=== PATIENT | female | born 1975 | race Caucasian/White ===

== ENCOUNTER 2019-07-14 10:39 | Outpatient (CLI) | payer MEDICARE, MEDICAID, SELFPAY ==
--- NOTE | 2019-07-14 10:49 | XR_ITS ---
WS: [id number] HIP WITH PELVIS RIGHT TECHNIQUE: 3 views of the right hip with pelvis CLINICAL INFORMATION: PAIN AFTER FALL COMPARISON: None. FINDINGS: Mild degenerative arthritis right hip with joint space narrowing. No acute fractures. Normal pubic ra mi. Pelvic phleboliths. XR/XR hip RT 2-3V wo/w pel* [id number] IMPRESSION: No acute fractures
== END 2019-07-14 10:40 | disposition home or self-care (01) ==
LOC: RADWPI 10:47
PROVIDERS: Family Provider Family Medicine; PCP Family Medicine; Visit Provider Family Medicine
DX: M16.11 Unilateral primary osteoarthritis, right hip (principal); M25.551 Pain in right hip
CPT/HCPCS: 73502

== ENCOUNTER 2019-12-19 19:21 | Emergency (ER) | payer MEDICARE, MEDICAID, SELFPAY ==
[2019-12-19 19:34] VITALS: BP 144/90; PULSE 86; RESP 18; TEMP 37.2; O2SAT 98; BMI 34.3
--- NOTE | 2019-12-19 20:40 | CTR_ITS ---
PROCEDURE INFORMATION: Exam: CT Abdomen And Pelvis With Contrast Exam date and time: 12/19/2019 9:20 PM Age: 44 years old Clinical indication: Abdominal pain; Localized; Left lower quadrant (llq); Prior surgery; Surgery date: 6+ months; Surgery type: Gb, tubal; Additional info: Llq pain TECHNIQUE: Imaging protocol: Computed tomography of the abdomen and pelvis with intravenous contrast. Radiation optimization: All CT scans at this facility use at least one of these dose optimization techniques: automated exposure control; mA and/or kV adjustment per patient size (includes targeted exams where dose is matched to clinical indication); or iterative reconstruction. Contrast material: OMNI 300; Contrast volume: 95 ml; Contrast route: INTRAVENOUS (IV); COMPARISON: CT abdomen pelvis w con* [id number] 04/25/2019 8:43 AM RADIATION DOSE METRICS: Total DLP (mGy-cm): 1529.18 FINDINGS: Liver: There is a diffuse decrease in hepatic parenchymal density, consistent with fatty infiltration. There is an unchanged lipoma within the right lobe of the liver image 27 measuring 1.3 cm in size. Gallbladder and bile ducts: There has been a cholecystectomy. There is no common bile duct dilation. Pancreas: Normal. No ductal dilation. Spleen: There is an unchanged peripherally calcified splenic cyst. Adrenals: Normal. No mass. Kidneys and ureters: There is no evidence of hydronephrosis. There is no evidence of renal calcifications. Stomach and bowel: There is no evidence of intestinal perforation or obstruction. There is no evidence of colitis/diverticulitis. Appendix: A normal appendix is identified. Intraperitoneal space: Unremarkable. No free air. No significant fluid collection. Vasculature: Unremarkable.No abdominal aortic aneurysm. Lymph nodes: Unremarkable.No enlarged lymph nodes. Bladder: Unremarkable as visualized. Reproductive: Uterus and ovaries are unremarkable. Bones/joints: Unremarkable. No acute fracture. Soft tissues: There is a fat-containing umbilical hernia. CT/CT abdomen pelvis w con* [id number] IMPRESSION: Unchanged exam. No acute abnormality. Unremarkable appendix. No bowel thickening or inflammatory changes. No obstructing calculi. Radiation Dose CTDIVOL = (mGy): DLP = 1529.18 (mGy-cm)
[2019-12-19 21:19] LABS: Basophils # 0.1 10^3/uL (0.0-0.1); Basophils % 0.7 %; Eosinophils # 0.1 10^3/uL (0.0-0.8); Eosinophils % 1.6 %; Hematocrit 43.7 % (37.0-47.0); Hemoglobin 14.4 g/dL (11.5-15.3); Lymphocytes # 3.6 10^3/uL (0.8-4.8); Lymphocytes % 42.9 %; Mean Corpuscular Hemoglobin 30.1 pg (28.0-34.0); Mean Corpuscular Volume 91.4 fL (81-99); Mean Platelet Volume 10.3 fL (7.4-10.4); Monocytes # 0.5 10^3/uL (0.2-0.9); Monocytes % 5.7 %; Neutrophils # 4.1 10^3/uL (1.8-7.7); Nucleated Red Blood Cells % 0 %; Platelet Count 308 10^3/cmm (130-400); Red Blood Count 4.78 10^6/uL (4.1-5.3); Red Cell Distribution Width 14.2 % (12.1-15.1); White Blood Count 8.3 10^3/uL (4.0-10.0)
[2019-12-19] MEDS: sodium chloride 0.9% 1,000 ML 999 ML IV (21:22)
[2019-12-19] MEDS: lidocaine 2% viscous 15 ML, aluminum-mag hydrox-simethicon 30 ML, sucralfate oral liq 1 GM PO (21:23)
[2019-12-19] MEDS: iohexol 300 mg/mL 100 mL Btl IV (21:30)
[2019-12-19 21:38] LABS: Alanine Aminotransferase 18 U/L (0-33); Albumin Level 4.6 g/dL (3.5-5.2); Alkaline Phosphatase 55 IU/L (35-105); Anion Gap 18.8 (5-19); Aspartate Amino Transferase 21 U/L (0-32); Blood Urea Nitrogen 9 mg/dL (6-20); Calcium 9.6 mg/dL (8.5-10.5); Carbon Dioxide 22 mmol/L (22-29); Chloride 101 mmol/L (98-107); Globulin 3.2 g/dL (1.3-4.6); Glucose 103 mg/dL (65-115); Lipase 35 U/L (13-60); Osmolality Calculated 282 mOsm/kg (285-295); Potassium 3.8 mmol/L (3.5-5.1); Sodium 138 mmol/L (136-145); Total Bilirubin 0.4 mg/dL (0.15-1.2); Total Protein 7.8 g/dL (6.6-8.7)
--- NOTE | 2019-12-19 21:46 | W.ED.ABDPA2 ---
HPI - Abdominal Pain General: Chief Complaint: Abdominal Pain Stated Complaint: lower l pain, n/v Time Seen by Provider: 12/19/19 20:36 History of Present Illness: HPI narrative: Patient with complaint about abdominal discomfort left lower quadrant have diverticulitis has history of gastroparesis and said that she feels like it is acting up again. Onset (ago): day(s) Pain Consistency: intermittent Location: LLQ Severity: mild Associated Symptoms: Reports diarrhea and loose stools; Denies chills, fever(s), nausea and vomiting Review of Systems Const: Denies: fever(s), chills or body aches Eyes: Denies: change in vision or blurry vision ENMT: Denies: throat pain or nasal congestion Card: Denies: chest pain or dyspnea on exertion Resp: Denies: dyspnea, productive cough or non-productive cough GI: Reports: abdominal pain and diarrhea; Denies: nausea or vomiting Musc: Denies: extremity pain Skin/Breast: Denies: rash Neuro: Denies: headache(s) Psych: Denies: anxiety or depression Zeeshan/Lymph: Denies: easy bruising Physical Exam Const: COMMON NORMALS: no acute distress, average body habitus and patient oriented x3 HENMT: COMMON NORMALS: normocephalic HEAD & SCALP: normal to inspection and normocephalic FACE & SINUS: normal facial exam Eye: COMMON NORMALS: conjunctivae normal GENERAL EYE: appearance normal, both eyes and all related structures CONJUNCTIVA: Yes conjunctivae normal Neck/C-Spine: COMMON NORMALS: no JVD Chest: COMMONS NORMALS: normal inspection of the chest Resp: COMMON NORMALS: normal respiratory effort and clear to auscultation bilaterally AUSCULTATION: clear to auscultation bilaterally Cardio: COMMON NORMALS: no JVD, regular rate and regular rhythm RATE: regular rate RHYTHM: regular rhythm GI: COMMON NORMALS: Normal to inspection, nondistended, normoactive bowel sounds present PALPATION: Yes Tenderness to palpation present (GI) Details: LLQ Extremity: COMMON NORMALS: normal to inspection and full ROM Neuro: COMMON NORMALS: patient oriented x3 Course Vital Signs: Vital signs: Vital Signs Temperature 99.0 F 12/19/19 19:34 Pulse Rate 72 12/19/19 22:24 Respiratory Rate 18 12/19/19 22:24 Blood Pressure 133/78 12/19/19 22:24 Pulse Oximetry 98 12/19/19 22:24 MDM - Abdominal Pain MDM Narrative: Medical decision making narrative: Discussed need to follow-up with specialist and also curtail marijuana use Lab Data: Labs: Lab Results 12/19/19 12/19/19 Range/Units 21:01 21:01 WBC 8.3 (4.0-10.0) 10^3/ uL RBC 4.78 (4.1-5.3) 10^6/u L Hgb 14.4 (11.5-15.3) g/dL Hct 43.7 (37.0-47.0) % MCV 91.4 (81-99) fL MCH 30.1 (28.0-34.0) pg MCHC 33.0 (30.0-36.0) g/dL RDW 14.2 (12.1-15.1) % Plt Count 308 (130-400) 10^3/c mm MPV 10.3 (7.4-10.4) fL Neut % (Auto) 49.0 % Lymph % (Auto) 42.9 % [place] % (Auto) 5.7 % Eos % (Auto) 1.6 % Baso % (Auto) 0.7 % Neut # (Auto) 4.1 (1.8-7.7) 10^3/u L Lymph # (Auto) 3.6 (0.8-4.8) 10^3/u L [place] # (Auto) 0.5 (0.2-0.9) 10^3/u L Eos # (Auto) 0.1 (0.0-0.8) 10^3/u L Baso # (Auto) 0.1 (0.0-0.1) 10^3/u L Nucleated RBC % (a uto) 0 % Nucleated RBCs # 0.0 /100WBC Sodium 138 (136-145) mmol/L Potassium 3.8 (3.5-5.1) mmol/L Chloride 101 (98-107) mmol/L Carbon Dioxide 22 (22-29) mmol/L Anion Gap 18.8 (5-19) BUN 9 (6-20) mg/dL Creatinine 0.5 (0.5-0.9) mg/dL GFR Calculation 134.0 H (90-130) mL/min Glucose 103 (65-115) mg/dL Calculated Osmolal ity 282 L (285-295) mOsm/k g Calcium 9.6 (8.5-10.5) mg/dL Total Bilirubin 0.4 (0.15-1.2) mg/dL AST 21 (0-32) U/L ALT 18 (0-33) U/L Alkaline Phosphata se 55 (35-105) IU/L Total Protein 7.8 (6.6-8.7) g/dL Albumin 4.6 (3.5-5.2) g/dL Globulin 3.2 (1.3-4.6) g/dL Lipase 35 (13-60) U/L Discharge Plan Discharge Patient Disposition: Home, Self-Care Clinical Impression: Diabetic gastroparesis, Cannabis abuse Condition: Stable Prescriptions: New Reglan 5 mg tablet 5 mg PO DAILY Qty: 10 RF: 0 Discharge Orders: Discharge Order (Routine); Ordered 12/19/19 Ordered By: Frederic Nevarez Referrals: Candida Kennedy MD [Primary Care Provider] - Discharge Diet: Advance as tolerated Discharge Activity: Increase activity as tolerated Patient Instructions: Diabetic gastroparesis (GEN) Activity Restrictions/Additional Instructions: Follow-up with medical provider as directed. Take medications as prescribed. Return to the ER or your medical provider if condition worsens. Please read and understand discharge instructions. If any questions ask please. 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
[2019-12-19 22:24] VITALS: BP 133/78; PULSE 72; RESP 18; O2SAT 98
[2019-12-19 22:30] LABS: Add Urine Microscopic? NO
[2019-12-19 23:13] LABS: Protein Urine Neg (Negative); Specific Gravity, Urine 1.015 (1.005-1.030); Urine Appearance Clear (CLEAR); Urine Color Yellow (Yellow); pH Urine 6 (5-7)
[2019-12-19 23:14] LABS: Bilirubin Urine Neg (NEGATIVE); Blood Urine Neg (Negative); Glucose Urine UA 4+ (Normal); Ketones Urine Negative (Negative); Leukocyte Esterase Urine Negative (Negative); Nitrate Urine Negative (Negative); Urobilinogen Urine Norm (Negative)
[2019-12-20 06:12] LABS: Glucose Point of Care 157 mg/dL (70-110)
== END 2019-12-19 22:25 | disposition home or self-care (01) ==
PROVIDERS: Emergency Provider Nurse Practitioner Family; PCP Family Medicine
DX: E11.43 Type 2 diabetes mellitus with diabetic autonomic (poly)neuropathy (principal); K31.84 Gastroparesis; F12.10 Cannabis abuse, uncomplicated
CPT/HCPCS: 12345; 36416; 74177; 80053; 81003; 82962; 83690; 85025; 96360; 99282; 99283; J7030; Q9967

== ENCOUNTER 2019-12-29 21:15 | Emergency (ER) | payer MEDICARE, MEDICAID, SELFPAY ==
[2019-12-29 21:25] VITALS: BP 137/83; PULSE 77; RESP 18; TEMP 36.6; O2SAT 96; BMI 32.5
[2019-12-29 22:08] LABS: Basophils % 0.6 %; Eosinophils # 0.3 10^3/uL (0.0-0.8); Eosinophils % 4.2 %; Hematocrit 42.1 % (37.0-47.0); Hemoglobin 14.1 g/dL (11.5-15.3); Lymphocytes # 2.8 10^3/uL (0.8-4.8); Lymphocytes % 42.9 %; Mean Corpuscular HGB Conc 33.5 g/dL (30.0-36.0); Mean Corpuscular Hemoglobin 31.1 pg (28.0-34.0); Mean Corpuscular Volume 92.7 fL (81-99); Mean Platelet Volume 10.6 fL (7.4-10.4); Monocytes # 0.5 10^3/uL (0.2-0.9); Monocytes % 7.8 %; Neutrophils # 2.85 10^3/uL (1.8-7.7); Neutrophils % 44.3 %; Nucleated Red Blood Cells % 0 %; Platelet Count 284 10^3/cmm (130-400); Red Blood Count 4.54 10^6/uL (4.1-5.3); Red Cell Distribution Width 14.2 % (12.1-15.1); White Blood Count 6.4 10^3/uL (4.0-10.0)
[2019-12-29 22:26] LABS: HCG, Serum Qual Negative (Negative)
[2019-12-29 22:27] LABS: Alanine Aminotransferase 35 U/L (0-33); Albumin Level 4.8 g/dL (3.5-5.2); Alkaline Phosphatase 61 IU/L (35-105); Anion Gap 17.3 (5-19); Aspartate Amino Transferase 33 U/L (0-32); Blood Urea Nitrogen 8 mg/dL (6-20); Calcium 9.7 mg/dL (8.5-10.5); Carbon Dioxide 23 mmol/L (22-29); Chloride 102 mmol/L (98-107); Creatinine Clr Calc Pharmacy 152.5313; Globulin 2.4 g/dL (1.3-4.6); Glucose 144 mg/dL (65-115); Lipase 44 U/L (13-60); Osmolality Calculated 286 mOsm/kg (285-295); Potassium 3.3 mmol/L (3.5-5.1); Sodium 139 mmol/L (136-145); Total Bilirubin 0.4 mg/dL (0.15-1.2); Total Protein 7.2 g/dL (6.6-8.7)
== END 2019-12-30 01:51 ==
LOC: ER 21:42
PROVIDERS: Physician Assistant; Emergency Provider Emergency Medicine; PCP Family Medicine
DX: Z53.21 Procedure and treatment not carried out due to patient leaving prior to being seen by health care provider (principal)
CPT/HCPCS: 36415; 80053; 83690; 84703; 85025; 99281

== ENCOUNTER 2020-01-22 23:11 | Emergency (ER) | payer MEDICARE, MEDICAID, SELFPAY ==
[2020-01-22 23:18] VITALS: BP 119/66; PULSE 115; RESP 18; TEMP 36.7; O2SAT 96; BMI 34.3
== END 2020-01-23 00:50 | disposition left against medical advice (07) ==
PROVIDERS: Emergency Provider Emergency Medicine; PCP Family Medicine
DX: Z53.21 Procedure and treatment not carried out due to patient leaving prior to being seen by health care provider (principal)
CPT/HCPCS: 99281

== ENCOUNTER 2020-01-23 09:09 | Emergency (ER) | payer MEDICARE, MEDICAID, SELFPAY ==
[2020-01-23 09:13] VITALS: BMI 34.3
--- NOTE | 2020-01-23 09:15 | ED_ITS ---
HPI - Wound/Laceration General: Chief Complaint: Wound/Laceration Stated Complaint: finger lac Time Seen by Provider: 01/23/20 09:11 History of Present Illness: HPI narrative: Patient is a 44-year-old female who comes to the ED with a laceration to left index finger. Patient says last night around 9 PM she cut herself with a knife by accident. She was able to control the bleeding with gauze and wrapped tape around finger. She comes to the ED today to get her finger laceration evaluated. Patient says she has not had a tetanus in a long time. Associated symptoms: Denies chills, fever(s), nausea or vomiting Review of Systems Const: Denies: fever(s), chills or fatigue Eyes: Denies: change in vision or eye discomfort ENMT: Denies: throat pain, odynophagia, nasal discharge or nasal congestion Card: Denies: chest pain, palpitations, edema, swelling of feet/ankles, dyspnea on exertion or orthopnea Resp: Denies: dyspnea, productive cough or non-productive cough GI: Denies: abdominal pain, nausea, vomiting, diarrhea, constipation or hematochezia : Denies: flank pain, dysuria or hematuria Musc: Denies: neck pain, back pain or extremity swelling Skin/Breast: Reports: new lesions (Laceration to left index finger.); Denies: rash Neuro: Denies: headache(s), numbness in extremities or weakness in extremities Physical Exam Const: COMMON NORMALS: no acute distress, patient oriented x3 and alert GENERAL APPEARANCE: cooperative and comfortable HENMT: COMMON NORMALS: normocephalic HEAD & SCALP: normocephalic MOUTH: Normal oral and palatal mucosa present THROAT: posterior oropharynx normal and uvula midline Neck/C-Spine: COMMON NORMALS: supple GENERAL: Yes normal visual inspection Resp: COMMON NORMALS: normal respiratory effort, No retractions, No use of accessory muscles and clear to auscultation bilaterally AUSCULTATION: clear to auscultation bilaterally Cardio: COMMON NORMALS: regular rate, regular rhythm, S1 normal heart sound present, S2 normal heart sound present, No gallops present (Cardio), No clicks present (Cardio), No murmurs present (Cardio) and Peripheral pulses 2+ throughout RATE: regular rate RHYTHM: regular rhythm HEART SOUNDS: S1 normal heart sound present and S2 normal heart sound present PERIPHERAL PULSES: Peripheral pulses 2+ throughout GI: COMMON NORMALS: Normal to inspection, nondistended, normoactive bowel sounds present, Soft to palpation, non-tender and no masses PALPATION: Yes Soft to palpation : COMMON NORMALS: Yes no CVA tenderness BLADDER/KIDNEY EXAM: Yes no CVA tenderness Back/Pelvis: COMMON NORMALS: no CVA tenderness Extremity: NARRATIVE EXTREMITY EXAM: Left index finger contains a 1 cm laceration near the lateral side near DIP joint. Patient had full sensation to finger and full range of motion. GENERAL: Yes normal exam except as noted Neuro: COMMON NORMALS: patient oriented x3 and moves all extremities SENSORIUM/ORIENTATION: Yes alert Skin: GENERAL SKIN EXAM: dry skin TRAUMA: laceration (1 cm linear laceration-wound margins are ready well closed up and no need for sutures at this time.) linear, actively bleeding (mild active bleeding after removing gauze and bandage.), superficial, motor nerve function intact and sensation intact; no pulsatile bleeding, no foreign bodies present and not contaminated Procedures Laceration Laceration 1: Site: hand (index finger) Side (If applicable): left Description: linear and clean Depth: simple, single layer Pre-repair: irrigated extensively (With normal saline) Size (cm): other (Dermabond) Technique: other (dermabond) Course Vital Signs: Vital signs: Vital Signs Temperature 97.9 F 01/23/20 10:42 Pulse Rate 91 01/23/20 10:42 Respiratory Rate 16 01/23/20 10:42 Blood Pressure 119/75 01/23/20 10:42 Pulse Oximetry 97 01/23/20 10:42 MDM - Wound/Laceration MDM Narrative: Medical decision making narrative: Patient is a 44-year-old female who comes to the ED with a laceration on left index finger. Laceration was superficial and Dermabond was used to help close and see lip laceration. X- ray of left hand was unremarkable and showed no acute findings or foreign bodies seen. Patient was given a tetanus dose while here in the ED. She was discharged and given a prescription for cephalexin for prophylactic treatment. Patient was told to follow-up with PCP in 7 to 10 days for reevaluation. Keep laceration site dry for the next 48 hours then clean and re-bandage daily. Watch for signs of infection. Patient understood and agreed with plan. Return to ED precautions given. Imaging Data^: Xray Ortho: Attestation: I personally reviewed and interpreted this imaging study as follows: My impression: Left hand x-ray?no acute fractures seen or foreign bodies present. Pending final radiology report. Discharge Plan Discharge Patient Disposition: Home Clinical Impression: Laceration Condition: Stable Prescriptions: New cephalexin 500 mg capsule 500 mg PO TID 5 Days Qty: 15 RF: 0 No Action Reglan 5 mg tablet 5 mg PO DAILY Qty: 10 RF: 0 Discharge Orders: Discharge Order (Routine); Ordered 01/23/20 Ordered By: Nathan Marrero Referrals: Candida Kennedy MD [Primary Care Provider] - Discharge Diet: Regular Discharge Activity: Increase activity as tolerated Patient Instructions: Finger Laceration (ED) Activity Restrictions/Additional Instructions: Take full course of antibiotics as prescribed. Keep laceration site clean and dry for the next 48 hours. Then after that you can clean and re-bandage daily. Watch for signs of infection such as redness, warmth, increased tenderness and puslike drainage. If you see the signs of infection return to the ED, urgent care or PCP for reevaluation. call your PCP to schedule a follow-up appointment for reevaluation in the next 7 to 10 days. Continue taking all home meds. Follow discharge plans as discussed. You can return to the ED if symptoms worsen. 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
[2020-01-23 09:18] VITALS: BP 128/81; PULSE 98; RESP 18; TEMP 36.8; O2SAT 98
--- NOTE | 2020-01-23 09:32 | XRR_ITS ---
PROCEDURE INFORMATION: Exam: XR Left Hand Exam date and time: 01/23/2020 9:33 AM Age: 44 years old Clinical indication: Injury or trauma; Injury history: Laceration to index finger; Initial encounter; Left; Injury date: Yesterday TECHNIQUE: Imaging protocol: XR Left hand. Views: 3 or more views. COMPARISON: No relevant prior studies available. FINDINGS: Bones/joints: No acute bony injury or malalignment. Degenerative change, disproportionately involving the 1st carpometacarpal joint. Sclerosis in the 3rd distal phalanx. Soft tissues: Mild soft tissue swelling without radiopaque foreign body. 2 mm soft tissue calcification adjacent to the ulnar styloid. XR/XR hand LT min 3V* [id number] IMPRESSION: No acute bony injury or malalignment.
[2020-01-23] MEDS: tetanus-dipt-pertussis 0.5 mL SDV IM (09:37)
[2020-01-23] MEDS: cephALEXin 500 mg Capsule PO (09:44)
[2020-01-23] MEDS: acetaminophen 500 mg Tablet 1000 MG PO (09:44)
[2020-01-23 10:42] VITALS: BP 119/75; PULSE 91; RESP 16; TEMP 36.6; O2SAT 97
== END 2020-01-23 10:44 | disposition home or self-care (01) ==
PROVIDERS: Emergency Provider Physician Assistant; PCP Family Medicine
DX: S61.211A Laceration without foreign body of left index finger without damage to nail, initial encounter (principal); W26.0XXA Contact with knife, initial encounter; Z23 Encounter for immunization
CPT/HCPCS: 12001; 12345; 73130; 90471; 90715; 99281; 99283

== ENCOUNTER 2020-01-30 19:34 | Emergency (ER) | payer MEDICARE, MEDICAID, SELFPAY ==
[2020-01-30 19:43] VITALS: BP 139/90; PULSE 84; RESP 18; TEMP 36.6; O2SAT 97
--- NOTE | 2020-01-30 19:54 | W.ED.EAR ---
HPI - Ear Problem General: Chief complaint: Ear Stated complaint: left ear pain/ drainage Time Seen by Provider: 01/30/20 19:51 Source: patient Mode of arrival: ambulatory Limitations: no limitations History of Present Illness: HPI Narrative: Patient comes in today with complaints of left ear pain and discomfort. Patient has been using Q-tips in her ear. Patient appears well. Patient appears in no acute distress. Associated symptoms: Reports ear or mastoid pain Review of Systems General: Reports: 10 or more systems reviewed and unremarkable except in HPI and below ENMT: Reports: ear or mastoid pain Physical Exam Const: COMMON NORMALS: no acute distress and patient oriented x3 GENERAL APPEARANCE: cooperative HENMT: COMMON NORMALS: normocephalic, TM's normal bilaterally and Normal external nose present HEAD & SCALP: normal to inspection and normocephalic NOSE: Normal external nose present EXTERNAL AUDITORY CANAL: Abnormal EAC present (Abrasion with redness is noted to the left ear canal.) TYMPANIC MEMBRANE: TM's normal bilaterally MOUTH: Normal oral and palatal mucosa present THROAT: posterior oropharynx normal Eye: GENERAL EYE: appearance normal, both eyes and all related structures Neck/C-Spine: COMMON NORMALS: full ROM Lymph: LYMPHATIC: no lymphadenopathy noted Chest: COMMONS NORMALS: normal inspection of the chest Resp: COMMON NORMALS: normal respiratory effort EFFORT & INSPECTION: Yes able to speak in complete sentences Cardio: COMMON NORMALS: regular rate and regular rhythm RATE: regular rate RHYTHM: regular rhythm GI: COMMON NORMALS: non-tender Back/Pelvis: COMMON NORMALS: thoracic and lumbar spine normal to inspection Extremity: COMMON NORMALS: normal to inspection Neuro: COMMON NORMALS: patient oriented x3 and moves all extremities Psych: COMMON NORMALS: mental status grossly normal and cooperative Skin: COMMON NORMALS: no rashes or lesions noted GENERAL SKIN EXAM: no rashes or lesions noted Course Vital Signs: Vital signs: Vital Signs Temperature 97.9 F 01/30/20 19:43 Pulse Rate 84 01/30/20 19:43 Respiratory Rate 18 01/30/20 19:43 Blood Pressure 139/90 01/30/20 19:43 Pulse Oximetry 97 01/30/20 19:43 MDM - Ear MDM Narrative: Medical decision making narrative: Patient comes in today with complaints of left ear discomfort. On exam we note an abrasion and some redness to the left ear canal. Remainder the exam was unremarkable. Vital signs were normal. Differential diagnosis includes but not limited to otitis externa, abrasion, malingering. Reviewed exam with patient recommended treatment with Cortisporin eardrops for discomfort. Patient reported understanding of care plan and need for follow-up. Discharge Plan Discharge Patient Disposition: Home Clinical Impression: Otitis externa Qualifiers: Otitis externa type: unspecified type Chronicity: acute Laterality: left Qualified Code(s): H60.502 - Unspecified acute noninfective otitis externa, left ear Condition: Stable Prescriptions: No Action Reglan 5 mg tablet 5 mg PO DAILY Qty: 10 RF: 0 Discharge Orders: Discharge Order (Routine); Ordered 01/30/20 Ordered By: Darius Patten Referrals: Candida Kennedy MD [Primary Care Provider] - Discharge Diet: Usual diet Discharge Activity: Increase activity as tolerated Patient Instructions: Otitis Externa (ED) Activity Restrictions/Additional Instructions: Acetaminophen as needed for pain. Use ear drops, 4 drops to affected ear 4 times a day for 7 days. Follow-up with primary care in one week. 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
== END 2020-01-30 21:00 | disposition home or self-care (01) ==
PROVIDERS: Emergency Provider Nurse Practitioner Family; PCP Family Medicine
DX: H60.502 Unspecified acute noninfective otitis externa, left ear (principal)
CPT/HCPCS: 12345; 99281; 99283

== ENCOUNTER 2020-02-09 10:46 | Outpatient (CLI) | payer MEDICARE, MEDICAID, SELFPAY ==
--- NOTE | 2020-02-09 | XR_ITS ---
WS: [id number] LEFT HAND: 3 VIEW(S) TECHNIQUE: PA, oblique and lateral. HISTORY: HAND PAIN, LEFT COMPARISON: 01/23/2020 No acute fracture or dislocation. No soft tissue or bone abnormality. No erosions. No periostitis. XR/XR hand LT min 3V* [id number] IMPRESSION: No arthropathy appreciated.
--- NOTE | 2020-02-09 | XR_ITS ---
WS: [id number] RIGHT HAND: 3 VIEW(S) TECHNIQUE: PA, oblique and lateral. HISTORY: NUMBNESS COMPARISON: None available. No acute fracture or dislocation. No soft tissue or bone abnormality. No erosions or soft tissue abnormality. XR/XR hand RT min 3V* [id number] IMPRESSION: Normal RIGHT hand.
== END 2020-02-09 10:47 | disposition home or self-care (01) ==
LOC: RADWPI 10:49
PROVIDERS: PCP Nurse Practitioner Family; Visit Provider Nurse Practitioner Family
DX: M79.642 Pain in left hand (principal); R20.2 Paresthesia of skin
CPT/HCPCS: 73130

== ENCOUNTER → 2020-03-22 11:08 | Outpatient (BNVA) | payer MEDICARE, MEDICAID, SELFPAY | PROVIDERS: PCP Nurse Practitioner Family; Visit Provider Specialist | DX: G56.03 Carpal tunnel syndrome, bilateral upper limbs (principal); R20.0 Anesthesia of skin | CPT/HCPCS: 95910 ==

== ENCOUNTER 2020-09-10 05:02 | Emergency (ER) | payer MEDICARE, MEDICAID, SELFPAY ==
[2020-09-10 05:07] VITALS: BP 98/76; PULSE 78; RESP 16; TEMP 36.8; O2SAT 97; BMI 32.1
--- NOTE | 2020-09-10 05:22 | CTR_ITS ---
PROCEDURE INFORMATION: Exam: CT Abdomen And Pelvis With Contrast Exam date and time: 09/10/2020 5:26 AM Age: 45 years old Clinical indication: Nausea and vomiting; Abdominal pain; Generalized; Prior surgery; Surgery type: Gb; Patient HX: Abd pain with n/v/d x 1 week. History of gastroparesis. TECHNIQUE: Imaging protocol: Computed tomography of the abdomen and pelvis with contrast. Radiation optimization: All CT scans at this facility use at least one of these dose optimization techniques: automated exposure control; mA and/or kV adjustment per patient size (includes targeted exams where dose is matched to clinical indication); or iterative reconstruction. Contrast material: OMNI 300; Contrast volume: 95 ml; Contrast route: INTRAVENOUS (IV); COMPARISON: CT abdomen pelvis w con* [id number] 12/19/2019 9:20 PM RADIATION DOSE METRICS: Total DLP (mGy-cm): 1579.59 FINDINGS: Lungs: The lung bases are clear. No effusion Liver: There is fatty infiltration of the liver. 1.3 cm fat density right lobe hepatic lesion. Gallbladder and bile ducts: There has been a cholecystectomy. Pancreas: Normal. No ductal dilation. Spleen: 2.4 cm partially calcified splenic cyst. Adrenal glands: Normal. No mass. Kidneys and ureters: Normal. No hydronephrosis. Stomach and bowel: Diverticulosis without diverticulitis. Appendix: No evidence of appendicitis. Intraperitoneal space: Tiny amount of free fluid in the pelvis. Vasculature: Unremarkable. No abdominal aortic aneurysm. Lymph nodes: Unremarkable. No enlarged lymph nodes. Urinary bladder: Unremarkable as visualized. Reproductive: Unremarkable as visualized. Bones/joints: Unremarkable. No acute fracture. Soft tissues: Unremarkable. CT/CT abdomen pelvis w con* [id number] IMPRESSION: 1. Fatty infiltration of the liver. 2. 2.4 cm partially calcified splenic cyst. 3. 1.3 cm hepatic lipoma. 4. Diverticulosis without diverticulitis. Radiation Dose CTDIVOL = (mGy): DLP = 1579.59 (mGy-cm)
[2020-09-10] MEDS: iohexol 300 mg/mL 100 mL Btl IV (05:51)
[2020-09-10 05:55] LABS: Basophils % 0.5 %; Eosinophils # 0.1 10^3/uL (0.0-0.8); Eosinophils % 1.9 %; Hematocrit 42.4 % (37.0-47.0); Hemoglobin 14.1 g/dL (11.5-15.3); Lymphocytes # 1.8 10^3/uL (0.8-4.8); Lymphocytes % 30.8 %; Mean Corpuscular HGB Conc 33.3 g/dL (30.0-36.0); Mean Corpuscular Hemoglobin 29.9 pg (28.0-34.0); Mean Corpuscular Volume 89.8 fL (81-99); Mean Platelet Volume 10.8 fL (7.4-10.4); Monocytes # 0.3 10^3/uL (0.2-0.9); Monocytes % 5.8 %; Neutrophils # 3.47 10^3/uL (1.8-7.7); Neutrophils % 60.8 %; Nucleated Red Blood Cells % 0 %; Platelet Count 236 10^3/cmm (130-400); Red Blood Count 4.72 10^6/uL (4.1-5.3); Red Cell Distribution Width 13.3 % (12.1-15.1); White Blood Count 5.7 10^3/uL (4.0-10.0)
[2020-09-10 06:00] VITALS: BP 119/67; PULSE 72; O2SAT 95
--- NOTE | 2020-09-10 06:00 | ED_ITS ---
Documented by User: Donn Greenwood DO 09/10/20 06:08 HPI - Abdominal Pain General: Chief Complaint: Abdominal Pain Stated Complaint: abd pain,n,v,d Time Seen by Provider: 09/10/20 05:07 History of Present Illness: HPI narrative: 45-year-old female with evidently a history of gastroparesis. She does have a history of diabetes. She presents with diffuse belly pain, vomiting, and some loose stool intermittently over the past week or so. No fever. She does have a history of a cholecystectomy she is afraid that there is a blockage . MD elicited complaint: abdominal pain Pertinent past history: other Onset (ago): week(s) (1) Pain Consistency: constant Location: Diffuse Severity: moderate Quality: cramping Migration to: no migration Exacerbating factors: movement Relieving factors: nothing Associated Symptoms: Reports anorexia, bloating, constipation, GI cramping and diarrhea; Denies dysuria, fever(s), hematochezia and hematuria Review of Systems Const: Denies: fever(s) Eyes: Denies: change in vision ENMT: Denies: odynophagia or sinus pain Card: Denies: chest pain or palpitations Resp: Denies: dyspnea, productive cough, non-productive cough or wheezing GI: Reports: diarrhea, constipation, bloating and GI cramping; Denies: hematochezia : Denies: dysuria or hematuria Musc: Denies: neck pain, back pain or joint warmth Skin/Breast: Denies: rash or erythema Neuro: Denies: headache(s) or dizziness Psych: Denies: anxiety, visual hallucinations or auditory hallucinations Physical Exam Const: GENERAL APPEARANCE: well developed ORIENTATION/CONSCIOUSNESS: Yes oriented to person, Yes oriented to place and Yes oriented to time HENMT: COMMON NORMALS: normocephalic, external ears normal and Normal external nose present HEAD & SCALP: normocephalic FACE & SINUS: normal facial exam NOSE: Normal external nose present and No nasal discharge present EXTERNAL EAR: Yes external ears normal Eye: COMMON NORMALS: Equal, round and reactive pupils present, EOMs intact bilaterally and conjunctivae normal EYELID: eyelids normal CONJUNCTIVA: Yes conjunctivae normal PUPIL: Yes Equal, round and reactive pupils present Neck/C-Spine: GENERAL: No tracheal deviation Chest: COMMONS NORMALS: normal inspection of the chest CHEST: No tenderness Resp: COMMON NORMALS: clear to auscultation bilaterally EFFORT & INSPECTION: No tachypneic, No respiratory distress, No retractions, No uses accessory muscles and No tracheal deviation AUSCULTATION: clear to auscultation bilaterally, no rhonchi, no wheezes and lung sounds not diminished Cardio: COMMON NORMALS: regular rate and regular rhythm RATE: regular rate RHYTHM: regular rhythm HEART SOUNDS: no murmurs PERIPHERAL PULSES: radial pulses present GI: INSPECTION: No abdominal distension AUSCULTATION: No Hyperactive bowel sounds present and No Hypoactive bowel sounds present PALPATION: Yes Tenderness to palpation present (GI), Yes Guarding due to palpation present (GI) and No Rigid due to palpation PERCUSSION: no dullness to percussion and no tympanic to percussion Neuro: SENSORIUM/ORIENTATION: Yes oriented to person, Yes oriented to place and Yes oriented to time Psych: COMMON NORMALS: mental status grossly normal Skin: COMMON NORMALS: no rashes or lesions noted GENERAL SKIN EXAM: no rashes or lesions noted Course Vital Signs: Vital signs: Vital Signs Temperature 98.2 F 09/10/20 05:07 Pulse Rate 60 09/10/20 06:31 Respiratory Rate 18 09/10/20 06:13 Blood Pressure 96/69 09/10/20 06:31 Pulse Oximetry 99 09/10/20 07:30 MDM - Abdominal Pain MDM Narrative: Medical decision making narrative: 45-year-old female with belly pain, vomiting, and alternating constipation and diarrhea by history. Her white blood cell count is 5.7. Hemoglobin 14. Other labs and CT are pending. She will be checked out to Dr. Reed at shift change. Lab Data: Labs: Lab Results 09/10/20 09/10/20 09/10/20 Range/Units 05:35 05:35 05:35 WBC 5.7 (4.0-10.0) 10^3/ uL RBC 4.72 (4.1-5.3) 10^6/u L Hgb 14.1 (11.5-15.3) g/dL Hct 42.4 (37.0-47.0) % MCV 89.8 (81-99) fL MCH 29.9 (28.0-34.0) pg MCHC 33.3 (30.0-36.0) g/dL RDW 13.3 (12.1-15.1) % Plt Count 236 (130-400) 10^3/c mm MPV 10.8 H (7.4-10.4) fL Neut % (Auto) 60.8 % Lymph % (Auto) 30.8 % [place] % (Auto) 5.8 % Eos % (Auto) 1.9 % Baso % (Auto) 0.5 % Neut # (Auto) 3.47 (1.8-7.7) 10^3/u L Lymph # (Auto) 1.8 (0.8-4.8) 10^3/u L [place] # (Auto) 0.3 (0.2-0.9) 10^3/u L Eos # (Auto) 0.1 (0.0-0.8) 10^3/u L Baso # (Auto) 0.0 (0.0-0.1) 10^3/u L Nucleated RBC % (a uto) 0 % Nucleated RBCs # 0.0 /100WBC Sodium 139 (136-145) mmol/L Potassium 3.4 L (3.5-5.1) mmol/L Chloride 105 (98-107) mmol/L Carbon Dioxide 24 (22-29) mmol/L Anion Gap 13.4 (5-19) BUN 9 (6-20) mg/dL Creatinine 0.5 (0.5-0.9) mg/dL GFR Calculation 133.4 H (90-130) mL/min Glucose 179 H (65-115) mg/dL Calculated Osmolal ity 291 (285-295) mOsm/k g Lactate 0.8 (0.5-2.2) mmol/L Calcium 9.0 (8.5-10.5) mg/dL Total Bilirubin 0.7 (0.15-1.2) mg/dL AST 15 (0-32) U/L ALT 15 (0-33) U/L Alkaline Phosphata se 53 (35-105) IU/L C-Reactive Protein 0.3 (0.0-4.9) mg/L Total Protein 7.4 (6.6-8.7) g/dL Albumin 4.5 (3.5-5.2) g/dL Globulin 2.9 (1.3-4.6) g/dL Lipase 17 (13-60) U/L HCG, Qual (Negative) Urine Color (Yellow) Urine Appearance (CLEAR) Urine pH (5-7) Ur Specific Gravit y (1.005-1.030) Urine Protein (Negative) Urine Glucose (UA) (Normal) Urine Ketones (Negative) Urine Blood (Negative) Urine Nitrate (Negative) Urine Bilirubin (Negative) Urine Urobilinogen (Negative) mg/dL Ur Leukocyte Michelle ase (Negative) 09/10/20 09/10/20 Range/Units 05:35 07:10 WBC (4.0-10.0) 10^3/ uL RBC (4.1-5.3) 10^6/u L Hgb (11.5-15.3) g/dL Hct (37.0-47.0) % MCV (81-99) fL MCH (28.0-34.0) pg MCHC (30.0-36.0) g/dL RDW (12.1-15.1) % Plt Count (130-400) 10^3/c mm MPV (7.4-10.4) fL Neut % (Auto) % Lymph % (Auto) % [place] % (Auto) % Eos % (Auto) % Baso % (Auto) % Neut # (Auto) (1.8-7.7) 10^3/u L Lymph # (Auto) (0.8-4.8) 10^3/u L [place] # (Auto) (0.2-0.9) 10^3/u L Eos # (Auto) (0.0-0.8) 10^3/u L Baso # (Auto) (0.0-0.1) 10^3/u L Nucleated RBC % (a uto) % Nucleated RBCs # /100WBC Sodium (136-145) mmol/L Potassium (3.5-5.1) mmol/L Chloride (98-107) mmol/L Carbon Dioxide (22-29) mmol/L Anion Gap (5-19) BUN (6-20) mg/dL Creatinine (0.5-0.9) mg/dL GFR Calculation (90-130) mL/min Glucose (65-115) mg/dL Calculated Osmolal ity (285-295) mOsm/k g Lactate (0.5-2.2) mmol/L Calcium (8.5-10.5) mg/dL Total Bilirubin (0.15-1.2) mg/dL AST (0-32) U/L ALT (0-33) U/L Alkaline Phosphata se (35-105) IU/L C-Reactive Protein (0.0-4.9) mg/L Total Protein (6.6-8.7) g/dL Albumin (3.5-5.2) g/dL Globulin (1.3-4.6) g/dL Lipase (13-60) U/L HCG, Qual Negative (Negative) Urine Color Straw (Yellow) Urine Appearance Clear (CLEAR) Urine pH 5 (5-7) Ur Specific Gravit y 1.010 (1.005-1.030) Urine Protein Neg (Negative) Urine Glucose (UA) 2+ (Normal) Urine Ketones Negative (Negative) Urine Blood Neg (Negative) Urine Nitrate Negative (Negative) Urine Bilirubin Neg (Negative) Urine Urobilinogen Norm (Negative) mg/dL Ur Leukocyte Michelle ase Negative (Negative) Discharge Plan Discharge Patient Disposition: Home Clinical Impression: Diabetic gastroparesis Condition: Stable Prescriptions: New erythromycin 250 mg tablet 250 mg PO TID Qty: 60 RF: 0 No Action Reglan 5 mg tablet 5 mg PO DAILY Qty: 10 RF: 0 Discharge Orders: Discharge ED (Routine); Ordered 09/10/20 Ordered By: Matt Reed Patient Instructions: Abdominal Pain (ED), Opioid Safety Sign Out Sign Out Data: Patient Sign Out occurred on 09/10/20 at 06:30. Patient's care was discussed, and care was transferred from to Matt Reed DO. Coding Level of Care Code ED Veterinary Pathologist for Chg Fwd Exam Comprehensive Documented by User: Matt Reed DO 09/10/20 07:46 HPI - Abdominal Pain General: Chief Complaint: Abdominal Pain Stated Complaint: abd pain,n,v,d Time Seen by Provider: 09/10/20 05:07 Course Vital Signs: Vital signs: Vital Signs Temperature 98.2 F 09/10/20 05:07 Pulse Rate 60 09/10/20 06:31 Respiratory Rate 18 09/10/20 06:13 Blood Pressure 96/69 09/10/20 06:31 Pulse Oximetry 99 09/10/20 07:30 MDM - Abdominal Pain MDM Narrative: Medical decision making narrative: Patient is diabetic gastroparesis. CT reviewed with the patient. Will add erythromycin 250 3 times daily however follow-up with primary care doctor later this week. Encourage her to continue to monitor blood sugars regularly. She has a little bit of what may be early signs of tardive dyskinesia. This may be due to the Reglan she has been taking for a long period of time she tells me she has been taking it for a while she should follow-up with her doctor with this as well whether or not she should continue taking it. Lab Data: Labs: Lab Results 09/10/20 09/10/20 09/10/20 Range/Units 05:35 05:35 05:35 WBC 5.7 (4.0-10.0) 10^3/ uL RBC 4.72 (4.1-5.3) 10^6/u L Hgb 14.1 (11.5-15.3) g/dL Hct 42.4 (37.0-47.0) % MCV 89.8 (81-99) fL MCH 29.9 (28.0-34.0) pg MCHC 33.3 (30.0-36.0) g/dL RDW 13.3 (12.1-15.1) % Plt Count 236 (130-400) 10^3/c mm MPV 10.8 H (7.4-10.4) fL Neut % (Auto) 60.8 % Lymph % (Auto) 30.8 % [place] % (Auto) 5.8 % Eos % (Auto) 1.9 % Baso % (Auto) 0.5 % Neut # (Auto) 3.47 (1.8-7.7) 10^3/u L Lymph # (Auto) 1.8 (0.8-4.8) 10^3/u L [place] # (Auto) 0.3 (0.2-0.9) 10^3/u L Eos # (Auto) 0.1 (0.0-0.8) 10^3/u L Baso # (Auto) 0.0 (0.0-0.1) 10^3/u L Nucleated RBC % (a uto) 0 % Nucleated RBCs # 0.0 /100WBC Sodium 139 (136-145) mmol/L Potassium 3.4 L (3.5-5.1) mmol/L Chloride 105 (98-107) mmol/L Carbon Dioxide 24 (22-29) mmol/L Anion Gap 13.4 (5-19) BUN 9 (6-20) mg/dL Creatinine 0.5 (0.5-0.9) mg/dL GFR Calculation 133.4 H (90-130) mL/min Glucose 179 H (65-115) mg/dL Calculated Osmolal ity 291 (285-295) mOsm/k g Lactate 0.8 (0.5-2.2) mmol/L Calcium 9.0 (8.5-10.5) mg/dL Total Bilirubin 0.7 (0.15-1.2) mg/dL AST 15 (0-32) U/L ALT 15 (0-33) U/L Alkaline Phosphata se 53 (35-105) IU/L C-Reactive Protein 0.3 (0.0-4.9) mg/L Total Protein 7.4 (6.6-8.7) g/dL Albumin 4.5 (3.5-5.2) g/dL Globulin 2.9 (1.3-4.6) g/dL Lipase 17 (13-60) U/L HCG, Qual (Negative) Urine Color (Yellow) Urine Appearance (CLEAR) Urine pH (5-7) Ur Specific Gravit y (1.005-1.030) Urine Protein (Negative) Urine Glucose (UA) (Normal) Urine Ketones (Negative) Urine Blood (Negative) Urine Nitrate (Negative) Urine Bilirubin (Negative) Urine Urobilinogen (Negative) mg/dL Ur Leukocyte Michelle ase (Negative) 09/10/20 09/10/20 Range/Units 05:35 07:10 WBC (4.0-10.0) 10^3/ uL RBC (4.1-5.3) 10^6/u L Hgb (11.5-15.3) g/dL Hct (37.0-47.0) % MCV (81-99) fL MCH (28.0-34.0) pg MCHC (30.0-36.0) g/dL RDW (12.1-15.1) % Plt Count (130-400) 10^3/c mm MPV (7.4-10.4) fL Neut % (Auto) % Lymph % (Auto) % [place] % (Auto) % Eos % (Auto) % Baso % (Auto) % Neut # (Auto) (1.8-7.7) 10^3/u L Lymph # (Auto) (0.8-4.8) 10^3/u L [place] # (Auto) (0.2-0.9) 10^3/u L Eos # (Auto) (0.0-0.8) 10^3/u L Baso # (Auto) (0.0-0.1) 10^3/u L Nucleated RBC % (a uto) % Nucleated RBCs # /100WBC Sodium (136-145) mmol/L Potassium (3.5-5.1) mmol/L Chloride (98-107) mmol/L Carbon Dioxide (22-29) mmol/L Anion Gap (5-19) BUN (6-20) mg/dL Creatinine (0.5-0.9) mg/dL GFR Calculation (90-130) mL/min Glucose (65-115) mg/dL Calculated Osmolal ity (285-295) mOsm/k g Lactate (0.5-2.2) mmol/L Calcium (8.5-10.5) mg/dL Total Bilirubin (0.15-1.2) mg/dL AST (0-32) U/L ALT (0-33) U/L Alkaline Phosphata se (35-105) IU/L C-Reactive Protein (0.0-4.9) mg/L Total Protein (6.6-8.7) g/dL Albumin (3.5-5.2) g/dL Globulin (1.3-4.6) g/dL Lipase (13-60) U/L HCG, Qual Negative (Negative) Urine Color Straw (Yellow) Urine Appearance Clear (CLEAR) Urine pH 5 (5-7) Ur Specific Gravit y 1.010 (1.005-1.030) Urine Protein Neg (Negative) Urine Glucose (UA) 2+ (Normal) Urine Ketones Negative (Negative) Urine Blood Neg (Negative) Urine Nitrate Negative (Negative) Urine Bilirubin Neg (Negative) Urine Urobilinogen Norm (Negative) mg/dL Ur Leukocyte Michelle ase Negative (Negative) Discharge Plan Discharge Patient Disposition: Home Clinical Impression: Diabetic gastroparesis Condition: Stable Prescriptions: New erythromycin 250 mg tablet 250 mg PO TID Qty: 60 RF: 0 No Action Reglan 5 mg tablet 5 mg PO DAILY Qty: 10 RF: 0 Discharge Orders: Discharge ED (Routine); Ordered 09/10/20 Ordered By: Matt Reed Patient Instructions: Abdominal Pain (ED), Opioid Safety Sign Out Sign Out Data: Patient Sign Out occurred on 09/10/20 at 06:30. Patient's care was discussed, and care was transferred from to Matt Reed DO. Coding Level of Care Code ED Veterinary Pathologist for Chg Fwd Exam Comprehensive
[2020-09-10 06:02] LABS: HCG, Serum Qual Negative (Negative)
[2020-09-10 06:10] LABS: Lactate (Lactic Acid level) 0.8 mmol/L (0.5-2.2)
[2020-09-10] MEDS: sodium chloride 0.9% 1,000 ML 999 ML IV (06:10)
[2020-09-10] MEDS: ondansetron 2 mg/ML SDV 2 mL 4 MG IVP (06:11)
[2020-09-10 06:13] VITALS: RESP 18; O2SAT 97
[2020-09-10 06:13] LABS: Alanine Aminotransferase 15 U/L (0-33); Albumin Level 4.5 g/dL (3.5-5.2); Alkaline Phosphatase 53 IU/L (35-105); Anion Gap 13.4 (5-19); Aspartate Amino Transferase 15 U/L (0-32); Blood Urea Nitrogen 9 mg/dL (6-20); C Reactive Protein 0.3 mg/L (0.0-4.9); Carbon Dioxide 24 mmol/L (22-29); Chloride 105 mmol/L (98-107); Globulin 2.9 g/dL (1.3-4.6); Glomerular Filtration Rate 133.4 mL/min (90-130); Glucose 179 mg/dL (65-115); Lipase 17 U/L (13-60); Osmolality Calculated 291 mOsm/kg (285-295); Potassium 3.4 mmol/L (3.5-5.1); Sodium 139 mmol/L (136-145); Total Bilirubin 0.7 mg/dL (0.15-1.2); Total Protein 7.4 g/dL (6.6-8.7)
[2020-09-10] MEDS: morphine 4 mg/mL SDV 1 mL IVP (06:13)
[2020-09-10 06:31] VITALS: BP 96/69; PULSE 60; O2SAT 94
[2020-09-10 07:18] LABS: Add Urine Microscopic? NO
[2020-09-10 07:27] LABS: Bilirubin Urine Neg (Negative); Blood Urine Neg (Negative); Glucose Urine UA 2+ (Normal); Ketones Urine Negative (Negative); Nitrate Urine Negative (Negative); Protein Urine Neg (Negative); Urine Appearance Clear (CLEAR); Urine Color Straw (Yellow); Urobilinogen Urine Norm (Negative); pH Urine 5 (5-7)
[2020-09-10 07:28] LABS: Leukocyte Esterase Urine Negative (Negative)
[2020-09-10 07:30] VITALS: O2SAT 99
[2020-09-10 07:48] VITALS: O2SAT 99
== END 2020-09-10 07:48 | disposition home or self-care (01) ==
PROVIDERS: Emergency Medicine; Emergency Provider Family Medicine
DX: E11.43 Type 2 diabetes mellitus with diabetic autonomic (poly)neuropathy (principal); K31.84 Gastroparesis
CPT/HCPCS: 74177; 80053; 81003; 83605; 83690; 84703; 85025; 86140; 96361; 96374; 96375; 99284; J2270; J2405; J7030; Q9967

== ENCOUNTER 2020-09-28 21:45 | Emergency (ER) | payer MEDICARE, MEDICAID, SELFPAY ==
[2020-09-28 21:48] VITALS: BP 139/94; PULSE 84; RESP 16; TEMP 36.4; O2SAT 97; BMI 31.6
--- NOTE | 2020-09-28 21:50 | CTR_ITS ---
PROCEDURE INFORMATION: Exam: CT Head Without Contrast Exam date and time: 09/28/2020 9:53 PM Age: 45 years old Clinical indication: Pain; Patient HX: Headache with dizziness and nausea. ; Additional info: Seizure TECHNIQUE: Imaging protocol: Computed tomography of the head without contrast. Radiation optimization: All CT scans at this facility use at least one of these dose optimization techniques: automated exposure control; mA and/or kV adjustment per patient size (includes targeted exams where dose is matched to clinical indication); or iterative reconstruction. COMPARISON: No relevant prior studies available. RADIATION DOSE METRICS: Total DLP (mGy-cm): 932.76 FINDINGS: Brain: Normal. No hemorrhage. Unremarkable white matter. No mass effect. Cerebral ventricles: No ventriculomegaly. Bones/joints: Unremarkable. No acute fracture. Paranasal sinuses: Visualized sinuses are unremarkable. No fluid levels. Mastoid air cells: Visualized mastoid air cells are well aerated. Soft tissues: Unremarkable. CT/CT head wo con* [id number] IMPRESSION: No acute intracranial abnormality. Radiation Dose CTDIVOL = (mGy): DLP = 932.76 (mGy-cm)
--- NOTE | 2020-09-28 21:50 | XR_ITS ---
WS: [id number] Portable AP upright chest, 09/28/2020 Clinical Data: seizure Comparison: None. Findings: No nodules, masses or effusions are seen. The heart is normal. The pulmonary vascularity is not increased. No pneumonia or pneumothorax is seen. XR/XR chest 1V portable [id number] Impression: Negative chest.
--- NOTE | 2020-09-28 21:51 | ECG_ITS ---
[facility] Test Date: 2020-09-29 Pat Name: Maki Staley Department: Room: Gender: Female [employer]: : [id number] Requested By: Kane Rocha Order Number: [id number] Reading MD: ISIAH PARTIDA Measurements Intervals [place] Rate: 73 P: 40 MA: 184 QRS: -3 QRSD: 112 T: -16 QT: 418 QTc: 462 Interpretive Statements SINUS RHYTHM INCOMPLETE RIGHT BUNDLE BRANCH BLOCK [90+ ms QRS DURATION, TERMINAL R IN V1/V2, 40+ ms S IN I/aVL/V4/V5/V6] MINIMAL VOLTAGE CRITERIA FOR LVH, CONSIDER NORMAL VARIANT [MEETS CRITERIA IN ONE OF: R(aVL), S(V1), R(V5), R(V5/V6)+S(V1)] ST DEVIATION AND MODERATE T-WAVE ABNORMALITY, CONSIDER ANTERIOR ISCHEMIA [-0.1+ mV T WAVE IN V3/V4] No previous ECG available for comparison Electronically Signed On 09-29-2020 20:43:00 CDT by ISIAH PARTIDA [id number]
--- NOTE | 2020-09-28 21:54 | W.ED.SEIZURE ---
HPI - Seizure General: Chief Complaint: Nausea/Vomiting/Diarrhea Stated Complaint: seizure and neck pain Time Seen by Provider: 09/28/20 21:46 Source: patient and EMS Mode of arrival: EMS Limitations: no limitations History of Present Illness: HPI Narrative: She states she feeling she is going to have a seizure but never actually had a seizure but states her eyes she is Fluttering.45-year-old female states that she laid down tonight states that she felt like her eyes were fluttering. She states she started having severe nausea and vomited and had some diarrhea as well. She does have a history of gastroparesis and states this is not uncommon for her. She had some right-sided neck pain as well that is tender to touch. She denies any fever. States she is feeling improved currently. Denies any headache. Denies any chest pain. Associated symptoms: Deny chest pain, chills or fever(s) Review of Systems Const: Denies: fever(s), chills, body aches or change in appetite Eyes: Denies: blurry vision or eye discomfort ENMT: Denies: throat pain or dental pain Card: Denies: chest pain Resp: Denies: dyspnea GI: Reports: nausea and vomiting : Denies: dysuria Musc: Reports: neck pain Skin/Breast: Denies: rash Neuro: Reports: sensory changes Psych: Denies: depression [place]/Lymph: Denies: easy bruising All/Imm: Denies: urticaria Physical Exam Const: COMMON NORMALS: no acute distress, patient oriented x3 and healthy appearing HENMT: COMMON NORMALS: normocephalic and atraumatic HEAD & SCALP: normocephalic and atraumatic Eye: COMMON NORMALS: Equal, round and reactive pupils present and EOMs intact bilaterally PUPIL: Yes Equal, round and reactive pupils present Neck/C-Spine: COMMON NORMALS: full ROM and supple Chest: COMMONS NORMALS: normal inspection of the chest and normal palpation of entire chest wall Resp: COMMON NORMALS: normal respiratory effort, No retractions, No use of accessory muscles and clear to auscultation bilaterally AUSCULTATION: clear to auscultation bilaterally Cardio: COMMON NORMALS: regular rate, regular rhythm and No murmurs present (Cardio) RATE: regular rate RHYTHM: regular rhythm GI: COMMON NORMALS: Normal to inspection, nondistended, normoactive bowel sounds present, Soft to palpation, non-tender and no masses PALPATION: Yes Soft to palpation Extremity: COMMON NORMALS: normal to inspection and full ROM Neuro: COMMON NORMALS: patient oriented x3, moves all extremities and no focal motor deficits Psych: COMMON NORMALS: mental status grossly normal, Normal thought process present and cooperative THOUGHT PROCESS: Normal thought process present Skin: COMMON NORMALS: no rashes or lesions noted and no wounds GENERAL SKIN EXAM: no rashes or lesions noted Course Vital Signs: Vital signs: Vital Signs Temperature 97.6 F 09/28/20 21:48 Pulse Rate 86 09/29/20 00:41 Respiratory Rate 18 09/29/20 00:41 Blood Pressure 106/62 09/29/20 00:41 Pulse Oximetry 97 09/29/20 00:41 MDM - Seizure MDM Narrative: Medical decision making narrative: Patient presents here with multiple complaints including vomiting likely from gastroparesis. Patient CT head here is normal and she has no signs of a stroke or seizure. Her neck pain is likely muscular she is point tender. Patient's blood work is all normal and she feels much improved after IV fluids and Zofran. She is stable for discharge and is to follow-up with PCP and return if worsening. She understands agrees to plan. Lab Data: Labs: Lab Results 09/28/20 09/28/20 09/28/20 Range/Units 22:30 22:40 22:40 WBC 7.4 (4.0-10.0) 10^3/ uL RBC 4.57 (4.1-5.3) 10^6/u L Hgb 13.7 (11.5-15.3) g/dL Hct 40.4 (37.0-47.0) % MCV 88.4 (81-99) fL MCH 30.0 (28.0-34.0) pg MCHC 33.9 (30.0-36.0) g/dL RDW 13.1 (12.1-15.1) % Plt Count 279 (130-400) 10^3/c mm MPV 10.7 H (7.4-10.4) fL Neut % (Auto) 62.9 % Lymph % (Auto) 26.9 % [place] % (Auto) 8.0 % Eos % (Auto) 1.4 % Baso % (Auto) 0.7 % Neut # (Auto) 4.64 (1.8-7.7) 10^3/u L Lymph # (Auto) 2.0 (0.8-4.8) 10^3/u L [place] # (Auto) 0.6 (0.2-0.9) 10^3/u L Eos # (Auto) 0.1 (0.0-0.8) 10^3/u L Baso # (Auto) 0.1 (0.0-0.1) 10^3/u L Nucleated RBC % (a uto) 0 % Nucleated RBCs # 0.0 /100WBC Sodium 139 (136-145) mmol/L Potassium 3.1 L (3.5-5.1) mmol/L Chloride 103 (98-107) mmol/L Carbon Dioxide 24 (22-29) mmol/L Anion Gap 15.1 (5-19) BUN 16 (6-20) mg/dL Creatinine 0.4 L (0.5-0.9) mg/dL GFR Calculation 172.6 H (90-130) mL/min Glucose 136 H (65-115) mg/dL Calculated Osmolal ity 291 (285-295) mOsm/k g Calcium 9.5 (8.5-10.5) mg/dL Total Bilirubin 0.3 (0.15-1.2) mg/dL AST 23 (0-32) U/L ALT 20 (0-33) U/L Alkaline Phosphata se 58 (35-105) IU/L Total Protein 7.2 (6.6-8.7) g/dL Albumin 4.6 (3.5-5.2) g/dL Globulin 2.6 (1.3-4.6) g/dL Lipase 30 (13-60) U/L Urine Color Yellow (Yellow) Urine Appearance Clear (CLEAR) Urine pH 6 (5-7) Ur Specific Gravit y 1.010 (1.005-1.030) Urine Protein Neg (Negative) Urine Glucose (UA) 4+ H (Normal) Urine Ketones Negative (Negative) Urine Blood Neg (Negative) Urine Nitrate Negative (Negative) Urine Bilirubin Neg (Negative) Urine Urobilinogen Norm (Negative) mg/dL Ur Leukocyte Michelle ase Negative (Negative) Imaging Data^: CXR: Attestation: I personally reviewed and interpreted this imaging study as follows: My impression: no acute abnormality CT Head: Radiologist's impression: [address] [address] [address] Scan Report Signed Patient: Andre Davison Unit #: [id number] : 04/28/1965 Age/Sex: 55 / M ADM Date: 09/28/20 Loc: ER Room/Bed: Attending Dr: Ordering Provider/Ordering MD: Kane Rocha MD Date of Service: 09/28/20 Procedure(s): CT head wo con* [id number] Accession Number(s): [id number] Report Number: [id number] PROCEDURE INFORMATION: Exam: CT Head Without Contrast Exam date and time: 09/28/2020 10:56 PM Age: 55 years old Clinical indication: Altered mental status/memory loss; Confusion or disorientation; Patient HX: Transient confusion and incoherence TECHNIQUE: Imaging protocol: Computed tomography of the head without contrast. Radiation optimization: All CT scans at this facility use at least one of these dose optimization techniques: automated exposure control; mA and/or kV adjustment per patient size (includes targeted exams where dose is matched to clinical indication); or iterative reconstruction. COMPARISON: No relevant prior studies available. RADIATION DOSE METRICS: Total DLP (mGy-cm): 877.78 FINDINGS: Brain: No acute intracranial hemorrhage or mass effect. There is mild decreased attenuation in the periventricular white matter, likely from microvascular disease. There is an old lacunar infarct in the right thalamus. No definite acute infarct by CT. MRI could be more sensitive/specific for detection, as clinically directed. Cerebral ventricles: Ventricle size is normal for age. Bones/joints: No definite acute skull fracture. Paranasal sinuses: Included paranasal sinuses are essentially clear. Mastoid air cells: No significant acute finding. CT/CT head wo con* [id number] IMPRESSION: 1. No acute intracranial hemorrhage or mass effect. 2. Changes of microvascular disease, and old right lacunar infarct. 3. No definite acute infarct by CT, see above. 4. Other findings discussed above. EKG Data^: EKG 1: Attestation: I personally reviewed and interpreted this EKG as follows: EKG interpretation date: 09/29/20 EKG interpretation time: 00:01 Interpretation: nsr hr [address] or t wave abnormalities qrs 112 qtc 44 Discharge Plan Discharge Patient Disposition: Home Clinical Impression: Neck pain Vomiting Qualifiers: Vomiting type: unspecified Vomiting Intractability: non-intractable Nausea presence: with nausea Qualified Code(s): R11.2 - Nausea with vomiting, unspecified Condition: Stable Prescriptions: New Reglan 10 mg tablet 10 mg PO Q6H PRN (Reason: nausea and vomiting) Qty: 20 RF: 0 No Action erythromycin 250 mg tablet 250 mg PO TID Qty: 60 RF: 0 Reglan 5 mg tablet 5 mg PO DAILY Qty: 10 RF: 0 Discharge Orders: Discharge ED (Routine); Ordered 09/28/20 Ordered By: Kane Rocha Discharge Diet: Advance as tolerated Discharge Activity: Resume usual activity Patient Instructions: Acute Nausea and Vomiting (ED), Opioid Safety Coding Level of Care Code ED [employer] Director for Chg Fwd Exam Comprehensive
[2020-09-28 22:30] VITALS: BP 140/80; PULSE 72; RESP 18; O2SAT 98
[2020-09-28] MEDS: sodium chloride 0.9% 1,000 ML 999 ML IV (22:50)
[2020-09-28] MEDS: metoclopramide 5 mg/mL SDV 2 mL 10 MG IVP (22:50)
[2020-09-28] MEDS: diphenhydrAMINE 50 mg/mL SDV 1mL IVP (22:55)
[2020-09-28 23:05] LABS: Basophils # 0.1 10^3/uL (0.0-0.1); Basophils % 0.7 %; Eosinophils # 0.1 10^3/uL (0.0-0.8); Eosinophils % 1.4 %; Hematocrit 40.4 % (37.0-47.0); Hemoglobin 13.7 g/dL (11.5-15.3); Lymphocytes % 26.9 %; Mean Corpuscular HGB Conc 33.9 g/dL (30.0-36.0); Mean Corpuscular Volume 88.4 fL (81-99); Mean Platelet Volume 10.7 fL (7.4-10.4); Monocytes # 0.6 10^3/uL (0.2-0.9); Neutrophils # 4.64 10^3/uL (1.8-7.7); Neutrophils % 62.9 %; Nucleated Red Blood Cells % 0 %; Platelet Count 279 10^3/cmm (130-400); Red Blood Count 4.57 10^6/uL (4.1-5.3); Red Cell Distribution Width 13.1 % (12.1-15.1); White Blood Count 7.4 10^3/uL (4.0-10.0)
[2020-09-28 23:17] LABS: Alanine Aminotransferase 20 U/L (0-33); Albumin Level 4.6 g/dL (3.5-5.2); Alkaline Phosphatase 58 IU/L (35-105); Anion Gap 15.1 (5-19); Aspartate Amino Transferase 23 U/L (0-32); Blood Urea Nitrogen 16 mg/dL (6-20); Calcium 9.5 mg/dL (8.5-10.5); Carbon Dioxide 24 mmol/L (22-29); Chloride 103 mmol/L (98-107); Globulin 2.6 g/dL (1.3-4.6); Glomerular Filtration Rate 172.6 mL/min (90-130); Glucose 136 mg/dL (65-115); Lipase 30 U/L (13-60); Osmolality Calculated 291 mOsm/kg (285-295); Potassium 3.1 mmol/L (3.5-5.1); Sodium 139 mmol/L (136-145); Total Bilirubin 0.3 mg/dL (0.15-1.2); Total Protein 7.2 g/dL (6.6-8.7)
[2020-09-28 23:18] LABS: Add Urine Microscopic? NO; Charge for UA Resulting for Rev
[2020-09-28 23:32] LABS: Bilirubin Urine Neg (Negative); Blood Urine Neg (Negative); Glucose Urine UA 4+ (Normal); Ketones Urine Negative (Negative); Leukocyte Esterase Urine Negative (Negative); Nitrate Urine Negative (Negative); Protein Urine Neg (Negative); Urine Appearance Clear (CLEAR); Urine Color Yellow (Yellow); Urobilinogen Urine Norm (Negative); pH Urine 6 (5-7)
[2020-09-29 00:41] VITALS: BP 106/62; PULSE 86; RESP 18; O2SAT 97
== END 2020-09-29 00:40 | disposition home or self-care (01) ==
PROVIDERS: Emergency Provider Emergency Medicine
DX: M54.2 Cervicalgia (principal); R11.2 Nausea with vomiting, unspecified
CPT/HCPCS: 70450; 71045; 80053; 81003; 83690; 85025; 93005; 96361; 96374; 96375; 99283; J1200; J2765; J7030

== ENCOUNTER → 2020-11-04 10:55 | Outpatient (BNVA) | payer MEDICARE, MEDICAID, SELFPAY | PROVIDERS: PCP Family Medicine; Visit Provider Family Medicine | DX: E11.43 Type 2 diabetes mellitus with diabetic autonomic (poly)neuropathy (principal); E78.5 Hyperlipidemia, unspecified; K21.9 Gastro-esophageal reflux disease without esophagitis; G47.00 Insomnia, unspecified; F17.211 Nicotine dependence, cigarettes, in remission; Z71.89 Other specified counseling | CPT/HCPCS: 80053; 80061; 82043; 83036; 85025 ==

== ENCOUNTER → 2021-02-02 15:42 | Outpatient (BNVA) | payer MEDICARE, MEDICAID, SELFPAY | PROVIDERS: PCP Family Medicine; Visit Provider Family Medicine | DX: R94.6 Abnormal results of thyroid function studies (principal); M54.2 Cervicalgia; K31.84 Gastroparesis; K21.9 Gastro-esophageal reflux disease without esophagitis; G47.00 Insomnia, unspecified; E78.5 Hyperlipidemia, unspecified; E11.9 Type 2 diabetes mellitus without complications; I10 Essential (primary) hypertension; Z68.32 Body mass index [BMI] 32.0-32.9, adult; F17.211 Nicotine dependence, cigarettes, in remission; Z71.89 Other specified counseling | CPT/HCPCS: 84439; 84443 ==

== ENCOUNTER → 2021-08-08 15:00 | Outpatient (BNVA) | payer MEDICARE, MEDICAID, SELFPAY | PROVIDERS: Visit Provider Family Medicine Adult Medicine | DX: E11.9 Type 2 diabetes mellitus without complications (principal); M19.021 Primary osteoarthritis, right elbow; M19.022 Primary osteoarthritis, left elbow | CPT/HCPCS: 83036 ==

== ENCOUNTER → 2021-12-19 12:18 | Outpatient (BNVA) | payer MEDICARE, MEDICAID, OTHER, SELFPAY | PROVIDERS: PCP Family Medicine Adult Medicine; Visit Provider Nurse Practitioner Psychiatric/Mental Health | DX: Z79.899 Other long term (current) drug therapy (principal); Z03.89 Encounter for observation for other suspected diseases and conditions ruled out | CPT/HCPCS: 80053; 80061; 83036 ==

== ENCOUNTER → 2022-04-02 07:30 | Outpatient (BNVA) | payer MEDICARE, MEDICAID, SELFPAY | PROVIDERS: PCP Family Medicine Adult Medicine; Visit Provider Student in an Organized Health Care Education/Training Program | DX: M18.12 Unilateral primary osteoarthritis of first carpometacarpal joint, left hand (principal); G56.01 Carpal tunnel syndrome, right upper limb; G56.21 Lesion of ulnar nerve, right upper limb | CPT/HCPCS: 20600; 73130; 99204; J3301; J3490 ==

== ENCOUNTER → 2022-06-27 07:29 | Outpatient (BNVA) | payer MEDICARE, MEDICAID, SELFPAY | PROVIDERS: PCP Family Medicine Adult Medicine; Referring Provider Student in an Organized Health Care Education/Training Program; Visit Provider Specialist | DX: R20.0 Anesthesia of skin (principal); R20.2 Paresthesia of skin | CPT/HCPCS: 95910; 95912 ==

== ENCOUNTER → 2022-07-16 09:53 | Outpatient (BNVA) | payer MEDICARE, MEDICAID, SELFPAY | PROVIDERS: PCP Family Medicine Adult Medicine; Visit Provider Student in an Organized Health Care Education/Training Program | DX: M18.12 Unilateral primary osteoarthritis of first carpometacarpal joint, left hand (principal); G56.02 Carpal tunnel syndrome, left upper limb | CPT/HCPCS: 99214 ==

== ENCOUNTER 2022-08-14 08:00 | Day surgery (SDC) | payer MEDICARE, MEDICAID, SELFPAY ==
[2022-08-13 09:59] VITALS: BMI 33.6
[2022-08-14] VITALS (10 sets, daily range): BP systolic 141–171; BP diastolic 70–97; PULSE 65–76; RESP 14–18; TEMP 36.1–36.3; O2SAT 90–99
[2022-08-14 09:00] LABS: Glucose Point of Care 104 mg/dL (70-110)
[2022-08-14] MEDS: acetaminophen 1,000 MG/100 ML PIGGYBACK 400 MG IV (09:00)
[2022-08-14 09:18] LABS: OR HCG Qualitative Urine Negative (Negative)
--- NOTE | 2022-08-14 09:19 | ANES.PREANE2 ---
Pre-Anesthetic Assessment Height/Weight: Height 1.63 m Weight 88.904 kg Temp Pulse Resp BP Pulse Ox O2 Del Method 96.9 F L 65 18 144/96 97 08/14/22 08:27 08/14/22 08:27 08/14/22 08:27 08/14/22 08:27 08/14/22 08:27 08/14/22 08:36 Preop Diagnosis: Left thumb basal joint arthritis, left carpal tunnel syndrome Operation Date: 08/14/22 10:15 Proposed Procedures p Left thumb basal joint [id number] and left carpal tunnel [id number],M18.12,G56.02(Left) - Jaret Marrero DO s Carpal Tunnel Release(Left) - Jaret Marrero DO Familial anesthetic complications: none Was Beta Donald taken within 24 hours: Yes Was Clonidine taken within 24 hours: N/A Last intake: Intake Last Liquid Date 08/13/22 Last Liquid Time 11:00 Last Solid Date 08/13/22 Last Solid Time 14:00 Social Tobacco and No alcohol Exam alert, oriented x 3 and regular rate & rhythm Airway Submandibular: within normal limits Cervical ROM: within normal limits Mallampati: Class II Pulmonary Chronic Obstructive Pulmonary Disease CV/HEM Hypertension GI Gastroesophageal Reflux Disease Metabolic Diabetes Mellitus, Hyperlipidemia and Morbid Obesity Neuropsych Anxiety, Depression and Neuropathy Anesthetic Plan ASA status: 3 Anesthesia: Choice Medications/Allergies Home Medications Medication Instructions Recorded Confirmed Last Taken Type biotin 1 tab PO DAILY 08/08/21 08/13/22 08/13/22 History multivitamin with iron 1 tab PO DAILY 08/08/21 08/13/22 08/13/22 History quetiapine 100 mg tablet 100 mg PO .q hs #30 tabs 07/30/22 08/13/22 08/12/22 Rx sertraline 50 mg tablet 50 mg PO DAILY #30 tabs 07/30/22 08/13/22 08/13/22 Rx amlodipine 5 mg tablet 5 mg PO DAILY 08/13/22 08/13/22 08/13/22 History atorvastatin 20 mg tablet 20 mg PO BEDTIME 08/13/22 08/13/22 08/12/22 History conj estrogen-medroxyprogesterone 1 tab PO DAILY 08/13/22 08/13/22 08/13/22 History 0.3 mg-1.5 mg tablet (Prempro) dapagliflozin 10 mg tablet 10 mg PO DAILY 08/13/22 08/13/22 08/13/22 History (Farxiga) dexlansoprazole 60 mg 60 mg PO DAILY 08/13/22 08/13/22 08/13/22 History capsule,biphase delayed release (Dexilant) fenofibrate nanocrystallized 145 145 mg PO DAILY 08/13/22 08/13/22 08/12/22 History mg tablet linaclotide 145 mcg capsule 145 mcg PO DAILY PRN Constipation 08/13/22 08/13/22 08/11/22 History (Linzess) propranolol 40 mg tablet 40 mg PO BID 08/13/22 08/13/22 08/13/22 History vitamin E 400 unit tablet 400 unit PO DAILY 08/13/22 08/13/22 08/13/22 History Allergies Allergy/AdvReac Type Severity Reaction Status Date / Time gabapentin [From Neurontin] Allergy Severe Temors Verified 08/13/22 09:54 celecoxib [From Celebrex] Allergy Intermediate vomit Verified 08/13/22 09:54 ibuprofen [From Motrin] Allergy Intermediate vomit Verified 08/13/22 09:54 metoclopramide [From Reglan] Allergy Intermediate ADR/ALGY-Pa Verified 08/13/22 09:54 lpitations mirtazapine [From Remeron] Allergy Intermediate ADR/ALGY-Pa Verified 08/13/22 09:54 lpitations duloxetine [From Cymbalta] Allergy vomit Verified 08/13/22 09:54 meloxicam [From Mobic] Allergy Unknown Verified 08/13/22 09:54 NSAIDS (Non-Steroidal Allergy vomit Verified 08/13/22 09:54 Anti-Inflamma lamotrigine AdvReac Unknown ALGY-Redness Verified 08/13/22 09:54 of Skin PFSH Anesthesia Medical History Abnormal thyroid function test ADHD Arthritis of carpometacarpal (CMC) joint of left thumb Benign essential HTN Chronic constipation Cubital tunnel syndrome on right Depression with anxiety Diabetic gastroparesis Elevated triglycerides with high cholesterol GERD (gastroesophageal reflux disease) Hyperlipidemia Insomnia Neck pain on right side Numbness of fingers of both hands Obesity (BMI 30.0-34.9) Osteoarthritis involving joints of both upper arms Perimenopausal symptom Psychiatric care PTSD (post-traumatic stress disorder) Right carpal tunnel syndrome Toenail deformity Type 2 diabetes mellitus, without long-term current use of insulin Surgical History H/O arthroscopic knee surgery 03/2014 H/O rotator cuff surgery left x2 H/O tubal ligation History of cholecystectomy Family History Family/Other Heart disease paternal uncle One uncle at age 36 and one 54 (previous bypass) Grandfather Heart disease paternal, triple bypass and valve replaced Other Cancer Diabetes Social History Smoking and tobacco status: former smoker Alcohol intake: never Data Anesthesia Cardiac Studies: No Data to Display
[2022-08-14] MEDS: sodium chloride 0.9% 1,000 ML 30 ML IV (09:23)
--- NOTE | 2022-08-14 10:48 | W.PM.OPSUD ---
Surgery/Procedure H&P Update DATE OF PROCEDURE: August 14, 2022 DATE H&P PERFORMED: 07/16/22 CHANGES TO PREVIOUS DOCUMENTATION: None PREOP DIAGNOSIS: Left thumb basal joint arthritis, left carpal tunnel syndrome PRIMARY INDICATION FOR PROCEDURE: Left thumb basal joint arthritis failed conservative treatment, left carpal tunnel syndrome PLANNED PROCEDURE: Operation Date: 08/14/22 10:15 Proposed Procedures p Left thumb basal joint [id number] and left carpal tunnel [id number],M18.12,G56.02(Left) - Jaret Marrero DO s Carpal Tunnel Release(Left) - Jaret Marrero DO
[2022-08-14] MEDS: ceFAZolin 2,000 MG in sodium chloride 0.9% (plus) 50 ML 100 MG IV (10:57)
[2022-08-14] MEDS: lidocaine-epi 1% 20 mL INJ INJECTION (11:18)
--- NOTE | 2022-08-14 13:19 | PM.OP2 ---
Brief Operative Note Date of procedure: 08/18/22 Pre-op diagnosis: Left carpal tunnel syndrome, left thumb basal joint arthritis Post-op diagnosis: same Procedure Done: Left carpal tunnel release Left thumb basal joint arthroplasty Surgeon: Jaret Marrero Estimated blood loss (mL): 5 Complications: None Post-op Plan: Patient taken to PACU in stable condition recovering well. We will the outpatient office in 2 weeks. Keep splint on in place. Thumb spica in place. Nonweightbearing left upper extremity. Patient will receive appropriate discharge instructions as well as pain medication postoperatively. Follow-up with me in the office in 2 weeks if any questions or concerns and contact the office Condition: stable Disposition: same day Coding Level of Care Code Acute Code for Inga Ford
[2022-08-14] MEDS: ipratropium-albuterol 3 mL Neb (13:25)
--- NOTE | 2022-08-14 13:25 | PM.OP ---
Operative Report Date of procedure: Aug 14, 2022 Pre-op diagnosis: Preop Diagnosis Left thumb basal joint arthritis, left carpal tunnel syndrome Procedure: ? Post-op diagnosis: Same Procedure done: Left thumb basal joint arthroplasty Left carpal tunnel release Implants: Arthrex fiber lock suspension implant kit for basal joint arthroplasty Surgeon: Jaret Marrero DO Estimated blood loss: 5mL Tourniquet time: 62min Complications: none Condition: stable Disposition: same day Brief History: Patient's been seen and worked up in the outpatient setting.? Findings consistent with a Left thumb basal joint severe arthritis and left carpal tunnel syndrome.? This is failed conservative treatment she is underwent injections as well as bracing at this point her last injection only provided minimal relief and at this point time her only other treatment option surgical intervention of the left thumb basal joint.? Patient has failed conservative treatment of her left carpal tunnel syndrome as well. We talked about surgery in detail about the risk benefits complication alternatives to surgical nonsurgical treatment options.? At this point time her persistent pain is causing her significant issues.? She does understand with the basal joint arthroplasty potential loss of range of motion as well as strength but ultimately this would provide her with significant pain relief.? Through shared decision making she elects proceed with surgical intervention of left carpal tunnel release and left thumb basal joint arthroplasty.? Once again she understands risk benefits complication alternatives to each treatment option understanding risk elects to proceed with surgery. Procedure: Patient seen evaluated in the preoperative holding area.? Consent was signed and reviewed with patient.? Correct extremity marked.? Once cleared by anesthesia patient was taken back to the operative suite. Underwent anesthesia per the anesthesia department. Patient was placed in supine position all bony prominences well-padded patient was properly secured to the bed.? Underwent anesthesia for the anesthesia department.? A armboard was placed to the left upper extremity a nonsterile tourniquet applied to the left upper arm.? Once appropriately anesthetized right upper extremity was then prepped and draped in standard orthopedic fashion.? Final timeout performed.? Patient received appropriate preoperative antibiotics. Esmarch was used exsanguinate the left upper extremity and tourniquet was insufflated to 250 mmHg. I then made a standard mini open left carpal tunnel incision.? This was made in line with the fourth ray starting distally at Bejarano's cardinal line extending proximally just distal to the wrist crease.? This was made in patient's palmar crease longitudinally.? Sharp scalpel incision was made through skin.? I then placed a self-retaining retractor and spread longitudinally identified the palmar fascia which was then split.? Next my self-retaining retractor was placed deep and I had direct visualization of the transverse carpal ligament as well as palmaris brevis muscle belly.? I then utilizing scalpel incised and feathered through the transverse carpal ligament till entered the carpal tunnel.? Once I did this I switched to Littler dissection scissors and completed the carpal tunnel release surgery distally releasing all of the transverse carpal ligament into the palmar fat with care to protect the recurrent branch as well as the superficial palmar arch.? Once the distal release was performed I then switched to have my corporate administrative assistant placed retraction above the transverse carpal ligament I then under loupe magnification had direct visualization of the transverse carpal ligament.? I utilized dissection scissors curved ulnarly away from the palmar cutaneous branch and protection of this and released the transverse carpal ligament to its entirely proximally into the median antebrachial fascia then I subsequently switched to a Pioneer and confirmed adequate complete decompression of the carpal tunnel both proximally and distally.? Satisfied with my release and then inspected the contents the carpal tunnel tendons were healthy nerve did appear to be compressed an hourglass shape but overall no masses the nerve appeared to have healthy potential for recovery.? Wound was then thoroughly irrigated. A wet [place] was then placed into the incision and I then proceeded with left thumb basal joint arthroplasty. ? I then utilized a 15 blade in standard longitudinal fashion directly over the left thumb basal joint .? Sharp scalpel incision was made through skin only.? I then switched to Littler dissection scissors and dissected out the dorsal cutaneous branches which were protected throughout this case.? I then identified the APL and EPL tendons.? I then performed a first dorsal compartment release under direct visualization with loupe magnification.? At this point time I then mobilized the tendons with a blunt wheatie self retractor and went through this interval.? Next I was directly onto the CMC joint dorsal capsule.? I then subsequently utilized my dissection scissors to dissect out the radial artery which was then identified and protected by my corporate administrative assistant throughout this case with a Kasdan retractor.? Once I identified the radial artery and dorsal branch I then subsequently performed my capsulotomy of the first CMC joint.? I then introduced a Pioneer into the arthritic space at the first CMC joint.? This was confirmed with mini C arm to be the appropriate bone prior to performing my trapeziectomy.? The trapezium was then shelled out and its entirety with a McClamary elevator with care to protect and not injure any of my remaining carpal bone articular cartilage as well as not to damage the/injure the radial artery as it was protected throughout the case.? This was then removed and identified the FCR within the floor of my incision.? Trapeziectomy was complete and confirmed on mini C arm. At this point time I thoroughly irrigated and removed of all residual bony debris.? A Pioneer was placed into the STT joint and joint was inspected and this was found to be free of arthritic changes. I then subsequently plan to proceed with utilizing Arthrex fiber lock suspensioplasty kit which was then opened and then subsequently drilled into the second metacarpal base.? Once I confirm my appropriate placement with mini C arm all suture anchor.? Once this was confirmed appropriate placement I then drilled the impacted and deployed the bicortical suture anchor.? This had excellent tension and could lift the arm off of the table with its fixation.? I then subsequently identified the radial aspect of the first metacarpal and at its mid substance on the radial aspect I subsequently drilled tapped and holding the thumb in appropriate adduction with not over distraction keeping it in line with the base of the second and subsequently loaded suturetape under appropriate tension and thumb positioning keeping the thumb in adduction and appropriate length impacted this suture anchor which had excellent fixation and the excess suture was then removed.? This was then confirmed to have excellent axial stability and an appropriate suspensioplasty.? In order to help add with fixation interposition within the voided space from the trapeziectomy I then identified a slip of the APL which was then harvested proximally and then weaved this through the FCR tendon twice and then tied this onto the APL tendon itself which created a soft tissue interposition as well as added appropriate abduction to the thumb with appropriate thumb position.? This was then secured with 2 horizontal mattress stitches with 3-0 Ethibond. I then took the excess of the APL tendon and then placed this within the voided space as a interposition.? I then subsequently had the tourniquet deflated.? Hemostasis was satisfactory.? I then took some Gelfoam to add for soft tissue and interposition within the voided space and hemostasis.? I then closed the capsule with Monocryl suture.? Wound bed was once again thoroughly irrigated.? I then closed the incision with deep 3-0 Vicryl and nylon sutures for skin.? Final x-rays with mini C arm were then taken showing stable trapeziectomy with soft tissue and suture anchor interposition.? Thumb had excellent axial stability as well as appropriate positioning.? Patient was then dressed with 4 x 4's ABD Curlex and a thumb spica splint.? With an Oral wrap.? Patient was awakened from anesthesia and taken to PACU in stable condition. Disposition: Patient taken to PACU in stable condition recovering well.? Patient will receive appropriate discharge instructions as well as pain medication postoperatively.? Patient will follow therapy protocol with OT hand therapy for basal joint arthroplasty.? Patient understands agrees with current plan.? All questions answered.? We will see me in the office in 2 weeks.
--- NOTE | 2022-08-14 13:30 | PM.PACU ---
PACU note Narrative: Patient recovering well in PACU. Thumb spica dressing on in place clean dry and intact. She has decreased sensation to median nerve distribution secondary to local anesthetic. She is able to wiggle her thumb. Brisk capillary refill less than 2 seconds. Exam: awake Disposition: discharged
[2022-08-14] MEDS: HYDROcodone-acetaminophen 5-325 mg Tablet 1 TAB PO (14:14)
--- NOTE | 2022-08-14 14:21 | ANE.PACU2 ---
Inpatient post-anesthesia follow up: Airway intact: Yes Vital signs: Temperature 97.4 F Pulse Rate 69 Respiratory Rate 16 Blood Pressure 152/87 Pulse Oximetry 95 Oxygen Delivery Me thod Nasal Cannula Oxygen Flow Rate 2 Fraction of Inspir ed Oxygen Hydration adequate: Yes Nausea and vomiting: No Pain level: 3 Mental status: Baseline
--- NOTE | 2022-08-14 15:31 | XR_ITS ---
WS: [id number] XR hand LT min 3V* [id number] REASON FOR EXAM: taqueria pics FINDINGS: Removal of trapezium bone fragments from the base of the first metacarpal. XR/XR hand LT min 3V* [id number] IMPRESSION: Postoperative left hand as above.
== END 2022-08-14 14:21 | disposition home or self-care (01) ==
PROVIDERS: Anesthesiology; PCP Family Medicine Adult Medicine; Visit Provider Student in an Organized Health Care Education/Training Program
PROC: (CPT 26535; principal; 2022-08-14 10:15)
PROC: (CPT 64721; 2022-08-14 10:15)
DX: M13.842 Other specified arthritis, left hand (principal); G56.02 Carpal tunnel syndrome, left upper limb; J44.9 Chronic obstructive pulmonary disease, unspecified; I10 Essential (primary) hypertension; K21.9 Gastro-esophageal reflux disease without esophagitis; E78.5 Hyperlipidemia, unspecified; E66.01 Morbid (severe) obesity due to excess calories; Z68.33 Body mass index [BMI] 33.0-33.9, adult; E11.40 Type 2 diabetes mellitus with diabetic neuropathy, unspecified; F41.9 Anxiety disorder, unspecified; F32.A Depression, unspecified; F90.9 Attention-deficit hyperactivity disorder, unspecified type; E66.9 Obesity, unspecified; Z87.891 Personal history of nicotine dependence
CPT/HCPCS: 26535; 64721; 36416; 73130; 76000; 81025; 82962; 84703; C1713; J0131; J0330; J0690; J1100; J1170; J2250; J2405; J2704; J2795; J3010; J7030

== ENCOUNTER 2022-08-19 09:40 | Emergency (ER) | payer MEDICARE, MEDICAID, SELFPAY ==
[2022-08-19 09:45] VITALS: BP 126/85; PULSE 91; RESP 14; TEMP 36.6; O2SAT 95; BMI 32.3
[2022-08-19 09:48] VITALS: BP 116/63; PULSE 90; RESP 18; TEMP 37; O2SAT 98
[2022-08-19 10:52] VITALS: BP 116/63; PULSE 90; RESP 18; TEMP 37; O2SAT 98
--- NOTE | 2022-08-19 11:34 | ED_ITS ---
HPI - Extremity Problem General: Chief complaint: Extremity Problem,Nontraumatic Stated complaint: post surgery pain/pressure left wrist Time Seen by Provider: 08/19/22 09:49 Source: patient Mode of arrival: ambulatory Limitations: no limitations History of Present Illness: 47-year-old female presents to the ER today for worsening left wrist pain. Patient had carpal tunnel release and a bone spur removed early last week. Patient reports this was done on Saturday. Patient reports she took the pain medication she was given by the orthopedic doctor however finished those. She reports over the last couple days she had increased pain. She did call their office late last week and they told her to loosen the bandage which she did. Patient reports it feels like something is dripping underneath and tingling. Patient reports no increased swelling. No discoloring of the hands. She has good movement of fingers 2 through 5 however she was not supposed to move her thumb much. She has a follow-up scheduled for the with Dr. Marrero. Patient reports she is unable to take anti-inflammatories or gabapentin. She has been using ice at home some. Review of Systems General: Reports: 10 or more systems reviewed and unremarkable except in HPI and below PFSH ED PFSH: Medical History Abnormal thyroid function test ADHD Arthritis of carpometacarpal (CMC) joint of left thumb Benign essential HTN Chronic constipation Cubital tunnel syndrome on right Depression with anxiety Diabetic gastroparesis Elevated triglycerides with high cholesterol GERD (gastroesophageal reflux disease) Hyperlipidemia Insomnia Neck pain on right side Numbness of fingers of both hands Obesity (BMI 30.0-34.9) Osteoarthritis involving joints of both upper arms Perimenopausal symptom Psychiatric care PTSD (post-traumatic stress disorder) Right carpal tunnel syndrome Toenail deformity Type 2 diabetes mellitus, without long-term current use of insulin Surgical History H/O arthroscopic knee surgery 03/2014 H/O rotator cuff surgery left x2 H/O tubal ligation History of cholecystectomy Family History Family/Other Heart disease paternal uncle One uncle at age 36 and one 54 (previous bypass) Grandfather Heart disease paternal, triple bypass and valve replaced Other Cancer Diabetes Social History Smoking and tobacco status: former smoker Alcohol intake: never Physical Exam Const: COMMON NORMALS: no acute distress, average body habitus, patient oriented x3, no limitations, healthy appearing, alert and well nourished Resp: COMMON NORMALS: normal respiratory effort EFFORT & INSPECTION: Yes able to speak in complete sentences Cardio: COMMON NORMALS: regular rate and regular rhythm RATE: regular rate RHYTHM: regular rhythm Extremity: NARRATIVE EXTREMITY EXAM: Patient's left forearm and wrist are wrapped. There is no obvious swelling or discoloring of the fingers. We did remove the bandages and reapply them. The surgical incisions look very good, minimal swelling is noted. No drainage is noted. Neuro: COMMON NORMALS: patient oriented x3 SENSORIUM/ORIENTATION: Yes alert Psych: COMMON NORMALS: cooperative Skin: NARRATIVE SKIN EXAM: See extremity exam above, no signs of infection. No discharge from any of the incisions. Course ED course: Patient presents for worsening left wrist and forearm pain after surgery on Saturday. She has not done anything different to injure it. She finished the pain medication she was given after surgery and reports being unable to take anti-inflammatories. Physical exam is unremarkable and no imaging required at this time. Vital Signs: Vital signs: Vital Signs Temperature 98.6 F 08/19/22 10:52 Pulse Rate 90 08/19/22 10:52 Respiratory Rate 18 08/19/22 10:52 Blood Pressure 116/63 08/19/22 10:52 Pulse Oximetry 98 08/19/22 10:52 Oxygen Delivery Me thod 08/19/22 09:48 MDM - Extremity (Nontraumatic) Medical Decision Making Patient is having postop pain. We discussed that given she had a carpal tunnel release, likely this is nerve pain that she is experiencing. This would be normal. There is no concern with infection of any of the incisions. There is no obvious swelling. No signs of decreased blood flow. The bandage was removed and replaced and everything looked to be healing nicely. I would recommend patient take Tylenol and any home medications she was previously prescribed. Follow-up with Dr. Marrero on the as scheduled. Recommend elevation and applying ice to reduce any swelling or pain. Patient verbalized understanding and was in agreement with the treatment plan. Critical Care Time Critical Care Time: Critical Care Time: No Discharge Plan Discharge Patient Disposition: Home Clinical Impression: Post-op pain Condition: Stable Prescriptions: No Action multivitamin with iron 1 tab PO DAILY biotin 1 tab PO DAILY quetiapine 100 mg tablet 100 mg PO .q hs Qty: 30 0RF Rx Instructions: Take one tablet daily at bedtime sertraline 50 mg tablet 50 mg PO DAILY Qty: 30 0RF Rx Instructions: Take one tablet by mouth every morning atorvastatin 20 mg tablet 20 mg PO BEDTIME Rx Instructions: TAKE 1 TABLET BY MOUTH AT BEDTIME amlodipine 5 mg tablet 5 mg PO DAILY Rx Instructions: TAKE 1 TABLET BY MOUTH EVERY DAY FOR BLOOD PRESSURE propranolol 40 mg tablet 40 mg PO BID Rx Instructions: TAKE 1 TABLET BY MOUTH TWO TIMES DAILY Prempro 0.3-1.5 mg tablet 1 tab PO DAILY Rx Instructions: TAKE 1 TABLET BY MOUTH EVERY DAY fenofibrate nanocrystallized 145 mg tablet 145 mg PO DAILY Rx Instructions: TAKE 1 TABLET BY MOUTH EVERY DAY Dexilant 60 mg capsule,biphase delayed releas 60 mg PO DAILY Rx Instructions: TAKE 1 CAPSULE BY MOUTH EVERY DAY Linzess 145 mcg capsule 145 mcg PO DAILY PRN (Reason: Constipation) Farxiga 10 mg tablet 10 mg PO DAILY Rx Instructions: TAKE 1 TABLET BY MOUTH EVERY DAY vitamin E 400 unit Tablet 400 unit PO DAILY hydrocodone-acetaminophen 5-325 mg tablet 1 tab PO Q6H PRN (Reason: pain) 7 Days Qty: 28 0RF Discharge Orders: Discharge ED (Routine); Ordered 08/19/22 Ordered By: Sheeba James Referrals: Jose Armando Cloud MD [Primary Care Provider] - Discharge Diet: Usual diet Discharge Activity: Limit activity as instructed Patient Instructions: Opioid Safety, Pain Management Activity Restrictions/Additional Instructions: Apply ice to wrist to reduce any swelling. Keep left wrist and arm elevated above the heart to reduce swelling and throbbing. Okay to take [id number] medications for pain or anything prescribed by surgeon. Follow-up with surgeon at scheduled appointment or with PCP if needing something sooner. Return to the ER with worsening symptoms. Coding Level of Care Code ED Home Theater Installer for Inga Ford
== END 2022-08-19 10:53 | disposition home or self-care (01) ==
PROVIDERS: Emergency Provider Physician Assistant; PCP Family Medicine Adult Medicine
DX: G89.18 Other acute postprocedural pain (principal); Z87.891 Personal history of nicotine dependence; I10 Essential (primary) hypertension; E78.5 Hyperlipidemia, unspecified; E11.9 Type 2 diabetes mellitus without complications
CPT/HCPCS: 99282

== ENCOUNTER → 2022-08-30 09:04 | Outpatient (BNVA) | payer MEDICARE, MEDICAID, SELFPAY | PROVIDERS: PCP Family Medicine Adult Medicine; Visit Provider Student in an Organized Health Care Education/Training Program | DX: Z98.890 Other specified postprocedural states (principal); M18.12 Unilateral primary osteoarthritis of first carpometacarpal joint, left hand | CPT/HCPCS: 73130; 99024 ==

== ENCOUNTER 2022-09-06 08:05 | Outpatient (RCR) | payer MEDICARE, MEDICAID, SELFPAY | END 2022-09-14 23:59 | disposition home or self-care (01) | LOC: SOT 08:05 | PROVIDERS: PCP Family Medicine Adult Medicine; Visit Provider Student in an Organized Health Care Education/Training Program | DX: Z47.89 Encounter for other orthopedic aftercare (principal) | CPT/HCPCS: 97110; 97140; 97166; L3807 ==

== ENCOUNTER 2022-09-15 06:00 | Outpatient (RCR) | payer MEDICARE, MEDICAID, SELFPAY | END 2022-10-14 23:59 | disposition home or self-care (01) | LOC: SOT 06:00 | PROVIDERS: PCP Family Medicine Adult Medicine; Visit Provider Student in an Organized Health Care Education/Training Program | DX: Z47.89 Encounter for other orthopedic aftercare (principal) | CPT/HCPCS: 97035; 97110; 97140 ==

== ENCOUNTER → 2022-09-27 09:16 | Outpatient (BNVA) | payer MEDICARE, MEDICAID, SELFPAY | PROVIDERS: PCP Family Medicine Adult Medicine; Visit Provider Student in an Organized Health Care Education/Training Program | DX: M18.12 Unilateral primary osteoarthritis of first carpometacarpal joint, left hand (principal); G56.02 Carpal tunnel syndrome, left upper limb | CPT/HCPCS: 99024 ==

== ENCOUNTER → 2022-11-01 08:57 | Outpatient (BNVA) | payer MEDICARE, MEDICAID, SELFPAY | PROVIDERS: PCP Family Medicine Adult Medicine; Visit Provider Nurse Practitioner Family | DX: G56.01 Carpal tunnel syndrome, right upper limb (principal); Z98.890 Other specified postprocedural states | CPT/HCPCS: 99214 ==

== ENCOUNTER 2022-11-21 05:45 | Day surgery (SDC) | payer MEDICARE, MEDICAID, SELFPAY ==
[2022-11-20 09:57] VITALS: BMI 33.6
[2022-11-21] VITALS (7 sets, daily range): BP systolic 121–150; BP diastolic 57–109; PULSE 60–85; RESP 14–18; TEMP 36.1–36.2; O2SAT 92–99
[2022-11-21] MEDS: sodium chloride 0.9% 1,000 ML 30 ML IV (06:19)
[2022-11-21] MEDS: acetaminophen 1,000 MG/100 ML PIGGYBACK 400 MG IV (06:20)
[2022-11-21 06:28] LABS: Glucose Point of Care 135 mg/dL (70-110)
--- NOTE | 2022-11-21 06:41 | ANES.PREANE2 ---
Pre-Anesthetic Assessment Height/Weight: Height 1.63 m Weight 88.904 kg Temp Pulse Resp BP Pulse Ox O2 Del Method 97.0 F L 84 18 150/109 96 Room Air 11/21/22 06:04 11/21/22 06:04 11/21/22 06:04 11/21/22 06:04 11/21/22 06:04 11/21/22 06:04 Preop Diagnosis: Right carpal Tunnel syndrome Operation Date: 11/21/22 07:00 Proposed Procedures p right carpal tunnel release:73216, G56.01(Right) - Jaret Marrero DO Familial anesthetic complications: none Was Beta Donald taken within 24 hours: Yes Was Clonidine taken within 24 hours: N/A Last intake: Intake Last Liquid Date 11/20/22 Last Liquid Time 22:00 Last Solid Date 11/20/22 Last Solid Time 12:00 Social Tobacco and No alcohol Exam alert, oriented x 3, clear to auscultation bilaterally and regular rate & rhythm Airway Mallampati: Class III Dentition: false Pulmonary Chronic Obstructive Pulmonary Disease CV/HEM Hypertension GI diabetic gastroparesis - hasn't eaten since noon yesterday and only ate a few bites. Was intubated for prior 3-hr ortho procedure Metabolic Diabetes Mellitus, Hyperlipidemia and Morbid Obesity Anesthetic Plan ASA status: 3 Anesthesia: Choice Risk of > 500 ml blood loss (7ml/kg in children): No Medications/Allergies Home Medications Medication Instructions Recorded Confirmed Last Taken Type biotin 1 tab PO DAILY 08/08/21 11/20/22 11/20/22 08:00 History multivitamin with iron 1 tab PO DAILY 08/08/21 11/20/22 11/20/22 07:00 History dapagliflozin 10 mg tablet 10 mg PO DAILY 08/13/22 11/20/22 11/20/22 07:00 History (Farxiga) dexlansoprazole 60 mg 60 mg PO DAILY 08/13/22 11/20/22 11/20/22 08:00 History capsule,biphase delayed release (Dexilant) linaclotide 145 mcg capsule 145 mcg PO DAILY PRN Constipation 08/13/22 11/20/22 10/22/22 History (Linzess) propranolol 40 mg tablet 40 mg PO BID 08/13/22 11/20/22 11/20/22 08:00 History vitamin E 400 unit tablet 400 unit PO DAILY 08/13/22 11/20/22 11/19/22 History quetiapine 100 mg tablet 100 mg PO .q hs #90 tabs 09/13/22 11/20/22 11/19/22 20:00 Rx sertraline 50 mg tablet 50 mg PO DAILY #90 tabs 09/13/22 11/20/22 11/20/22 07:00 Rx atorvastatin 20 mg tablet 20 mg PO BEDTIME #90 tabs 10/31/22 11/20/22 11/19/22 20:00 Rx conj estrogen-medroxyprogesterone 1 tab PO DAILY #28 tabs 10/31/22 11/20/22 11/20/22 08:00 Rx 0.3 mg-1.5 mg tablet (Prempro) fenofibrate nanocrystallized 145 145 mg PO DAILY #90 tabs 10/31/22 11/20/22 11/19/22 20:00 Rx mg tablet diclofenac sodium 1 % topical gel 2 - 4 g topical QID #100 grams 11/01/22 11/20/22 11/17/22 Rx amlodipine 5 mg tablet 5 mg PO DAILY 11/21/22 11/21/22 11/20/22 History Allergies Allergy/AdvReac Type Severity Reaction Status Date / Time gabapentin [From Neurontin] Allergy Severe Temors Verified 09/27/22 13:19 celecoxib [From Celebrex] Allergy Intermediate vomit Verified 09/27/22 13:19 ibuprofen [From Motrin] Allergy Intermediate vomit Verified 09/27/22 13:19 metoclopramide [From Reglan] Allergy Intermediate ADR/ALGY-Pa Verified 09/27/22 13:19 lpitations mirtazapine [From Remeron] Allergy Intermediate ADR/ALGY-Pa Verified 09/27/22 13:19 lpitations duloxetine [From Cymbalta] Allergy vomit Verified 09/27/22 13:19 meloxicam [From Mobic] Allergy Unknown Verified 09/27/22 13:19 NSAIDS (Non-Steroidal Allergy vomit Verified 09/27/22 13:19 Anti-Inflamma lamotrigine AdvReac Unknown ALGY-Redness Verified 09/27/22 13:19 of Skin Current Medications Generic Name Dose Route Start Last Admin Trade Name Freq PRN Reason Stop Dose Admin Sodium Chloride 1,000 mls @ 30 mls/hr 11/21/22 06:00 11/21/22 06:19 Sodium Chloride 0.9% IV 11/22/22 05:59 30 mls/hr .Q24H ИВАН Administration PFSH Anesthesia Medical History Abnormal thyroid function test ADHD Arthritis of carpometacarpal (CMC) joint of left thumb Benign essential HTN Chronic constipation Cubital tunnel syndrome on right Depression with anxiety Diabetic gastroparesis Elevated triglycerides with high cholesterol GERD (gastroesophageal reflux disease) Hyperlipidemia Insomnia Major depressive disorder, recurrent, in partial remission Neck pain on right side Numbness of fingers of both hands Obesity (BMI 30.0-34.9) Osteoarthritis involving joints of both upper arms Perimenopausal symptom Psychiatric care PTSD (post-traumatic stress disorder) Right carpal tunnel syndrome Toenail deformity Type 2 diabetes mellitus, without long-term current use of insulin Surgical History H/O arthroscopic knee surgery 03/2014 H/O rotator cuff surgery left x2 H/O tubal ligation History of cholecystectomy Family History Family/Other Heart disease paternal uncle One uncle at age 36 and one 54 (previous bypass) Grandfather Heart disease paternal, triple bypass and valve replaced Other Cancer Diabetes Social History Smoking and tobacco status: former smoker Alcohol intake: never Substance/Drug Use: current Substance/Drug use frequency: daily Female Reproductive History Date of last menstrual period: 09/27/21 Data Anesthesia Cardiac Studies: No Data to Display
--- NOTE | 2022-11-21 06:57 | W.PM.OPSUD ---
Surgery/Procedure H&P Update DATE OF PROCEDURE: November 21, 2022 DATE H&P PERFORMED: 11/01/22 CHANGES TO PREVIOUS DOCUMENTATION: none. No change from patient's office visit with nurse practitioner Guevara on 11/01/2022. Patient has right carpal tunnel syndrome and elects to proceed with right carpal tunnel release. PREOP DIAGNOSIS: Right carpal Tunnel syndrome PRIMARY INDICATION FOR PROCEDURE: Right carpal tunnel syndrome PLANNED PROCEDURE: Operation Date: 11/21/22 07:00 Proposed Procedures p right carpal tunnel release:[id number], G56.01(Right) - Jaret Marrero DO
[2022-11-21] MEDS: ceFAZolin 2,000 MG in sodium chloride 0.9% (plus) 50 ML 100 MG IV (06:59)
[2022-11-21] MEDS: lidocaine-epi 1% 20 mL INJ 5 ML INJECTION (07:28)
--- NOTE | 2022-11-21 07:45 | PC.NURSE ---
Pt arrived to PACU awake, resting comfortably, dressing to right wrist C/D/I, right fingers p/w/d, cap refill < 3 seconds, able to wiggle fingers. RUE elevated on pillow.
--- NOTE | 2022-11-21 07:59 | PM.OP2 ---
Brief Operative Note Date of procedure: 11/21/22 Pre-op diagnosis: Right carpal tunnel syndrome Post-op diagnosis: same Procedure Done: Right carpal tunnel release Surgeon: Jaret Marrero Estimated blood loss (mL): 1 Complications: None Post-op Plan: Patient taken to PACU in stable condition recovering well. Will receive appropriate discharge instructions as well as pain medication postoperatively. Patient to follow-up in the orthopedic office in 2 weeks Condition: stable Disposition: same day Coding Level of Care Code Acute Code for Inga Ford
--- NOTE | 2022-11-21 08:04 | PM.PACU ---
PACU note Narrative: Patient taken to PACU in stable condition recovering well. Pain controlled. Dressings on in place clean dry intact fingertips warm well-perfused brisk cap refill less than 2 seconds patient is able to wiggle fingers. Decreased sensation secondary to local anesthesia. Exam: awake Disposition: discharged
--- NOTE | 2022-11-21 08:12 | PM.OP ---
Operative Report Date of procedure: November 21, 2022 Pre-op diagnosis: Preop Diagnosis Right carpal Tunnel syndrome Procedure: Post-op diagnosis: Same Procedure done: RIght carpal tunnel release Surgeon: Jaret Marrero DO Anesthesia: MAC (Local) Estimated blood loss: 1 mL Tourniquet time 8 minutes IV fluids: See anesthesia record Complications: None Findings: See operative report narrative Condition: stable Disposition: same day Brief History: Patient is a pleasant 47-year-old female with right carpal tunnel syndrome.? She has been worked up in the outpatient setting findings and physical examination consistent with this. Patient's had good response to her left carpal tunnel release and she like to proceed with a right carpal tunnel release surgery. Through shared decision making in detail out of patient's risk benefits complication alternatives with surgical nonsurgical treatment options she agrees to proceed with surgical intervention of the right carpal tunnel release .? Patient understands and agrees with current plan.? All questions answered.? Patient elects to proceed with surgical intervention with carpal tunnel release. Procedure: Patient seen and evaluated in the preoperative holding area.? Consent was reviewed and signed with patient.? Correct extremity was marked.? Patient was seen evaluated by the anesthesia department once cleared for surgery was brought back to the operative suite.? Placement was placed onto the OR table in supine position all bony prominences were well-padded patient properly secured to the bed.? Right upper extremity was then placed onto an armboard.? A nonsterile tourniquet was applied to the right upper arm.? Patient underwent anesthesia per the anesthesia department.? Patient's right upper extremity was then prepped and draped in standard orthopedic fashion.? Final timeout performed.? Patient received appropriate preoperative antibiotics. Under sterile aseptic technique patient received local anesthesia over the preplanned carpal tunnel incision site. Esmarch was used to exsanguinate the right upper extremity and tourniquet was insufflated to 250 mmHg. A standard mini open carpal tunnel incision was made.? Starting distally at Bejarano's cardinal line in line with the fourth ray extending proximally distal to the wrist crease centered over the carpal tunnel.? Sharp scalpel incision was made through skin and subcutaneous tissue.? Self-retaining retractor was placed and the palmar fascia was identified.? This was then split longitudinally and direct visualization of the transverse carpal ligament was then made.? I then utilizing scalpel feathered through the transverse carpal ligament until I entered the floor of the transverse carpal tunnel ligament into the carpal tunnel.? Next I switched to dissection scissors and completed my release of the transverse carpal ligament distally with care to protect the recurrent motor branch.? I completely released into the palmar fat and until no entrapment was noted distally.? Care was made to protect the superficial palmar arch during my distal dissection.? Next I then placed a Brightwaters underneath the transverse carpal tunnel ligament to protect the contents of the carpal tunnel and subsequently utilizing dissection scissors under loupe magnification completely released the transverse carpal ligament proximally into the median antebrachial fascia.? Care was made to protect the palmar cutaneous branch by keeping my scissors curved ulnarly.? Once completely released, I then placed my Brightwaters and had appropriate decompression of the carpal tunnel proximally as well as distally.? I then inspected the contents of the carpal tunnel which showed an hourglass shape of the median nerve showing its compression.? No masses were noted.? Tendons appeared healthy.? Wound was then thoroughly irrigated.? Tourniquet deflated.? Hemostasis satisfactory with bipolar electrocautery.? I then closed the incision with interrupted nylon stitches.? Xeroform 4 x 4's and a bulky soft dressing was applied to the right upper extremity.? Patient was then awakened from anesthesia and taken to PACU in stable condition.? Patient tolerated procedure without complications. Disposition: Patient taken to PACU in stable condition recovering well.? Dressing clean dry and intact.? Patient will receive appropriate discharge instructions as well as pain medication postoperatively.? Patient to follow-up in the office in 2 weeks.? They understand they may be weightbearing as tolerated to the right hand.? Patient should keep incision clean dry and intact.? Patient understands if any questions or concerns may contact the office.
[2022-11-21] MEDS: HYDROcodone-APAP 7.5-325 mg/15 mL UDC PO (08:35)
--- NOTE | 2022-11-21 13:25 | ANE.PACU2 ---
Inpatient post-anesthesia follow up: Airway intact: Yes Vital signs: Temperature 97.1 F Pulse Rate 60 Respiratory Rate 17 Blood Pressure 149/88 Pulse Oximetry 99 Oxygen Delivery Me thod Room Air Oxygen Flow Rate Fraction of Inspir ed Oxygen Hydration adequate: Yes Nausea and vomiting: Yes Pain level: 1 Mental status: Baseline
== END 2022-11-21 08:50 | disposition home or self-care (01) ==
PROVIDERS: PCP Family Medicine Adult Medicine; Visit Provider Student in an Organized Health Care Education/Training Program
PROC: (CPT 64721; principal; 2022-11-21 07:00)
DX: G56.01 Carpal tunnel syndrome, right upper limb (principal); J44.9 Chronic obstructive pulmonary disease, unspecified; I10 Essential (primary) hypertension; E11.43 Type 2 diabetes mellitus with diabetic autonomic (poly)neuropathy; K31.84 Gastroparesis; E78.5 Hyperlipidemia, unspecified; E66.01 Morbid (severe) obesity due to excess calories; Z68.33 Body mass index [BMI] 33.0-33.9, adult; K21.9 Gastro-esophageal reflux disease without esophagitis; Z87.891 Personal history of nicotine dependence
CPT/HCPCS: 64721; 36416; 82962; J0131; J0690; J2250; J2704; J2795; J3010; J7030

== ENCOUNTER → 2022-12-03 12:41 | Outpatient (BNVA) | payer MEDICARE, MEDICAID, SELFPAY | PROVIDERS: PCP Family Medicine Adult Medicine; Visit Provider Student in an Organized Health Care Education/Training Program | DX: M18.11 Unilateral primary osteoarthritis of first carpometacarpal joint, right hand (principal); G56.01 Carpal tunnel syndrome, right upper limb | CPT/HCPCS: 99024; 99213 ==

== ENCOUNTER → 2022-12-27 14:47 | Outpatient (BNVA) | payer MEDICARE, OTHER, SELFPAY | PROVIDERS: PCP Family Medicine Adult Medicine; Visit Provider Nurse Practitioner Psychiatric/Mental Health | DX: Z79.899 Other long term (current) drug therapy (principal) | CPT/HCPCS: 80053; 80061; 83036 ==

== ENCOUNTER 2022-12-29 11:05 | Emergency (ER) | payer MEDICARE, MEDICAID, SELFPAY ==
[2022-12-29 11:23] VITALS: BP 141/69; PULSE 73; RESP 16; TEMP 36.4; O2SAT 96; BMI 37.5
--- NOTE | 2022-12-29 11:31 | XRR_ITS ---
PROCEDURE INFORMATION: Exam: XR Left Hand Exam date and time: 12/29/2022 11:40 AM Age: 47 years old Clinical indication: Pain; Hand; Left; Additional info: Trauma, pain at base of thumb, postop x 4 months TECHNIQUE: Imaging protocol: Radiologic exam of the left hand. Views: 3 or more views. COMPARISON: CR XR hand LT min 3V* [id number] 04/02/2022 7:31 AM FINDINGS: Bones/joints: Sclerotic density distal phalange of the 3rd digit stable since prior this finding is nonspecific. Otherwise negative for acute bony abnormality. Soft tissues: Normal. XR/XR hand LT min 3V* [id number] IMPRESSION: No acute findings.
--- NOTE | 2022-12-29 11:53 | PC.PHAR ---
PT STATES SHE KNOWS HER MEDICATIONS BUT ALSO HAD A LADY WHO SETS THEM UP FOR HER-PT STATES SHE HASNT STARTED TAKING THE ATOMOXETINE 40MG QAM RX FILLED 12/27/22 30D/S- STATES THE LADY WHO SETS UP HER MEDS HASNT PUT THE 40MG CAP IN THERE SO SHE IS STILL TAKING THE 25MG DAILY FILLED 11/29/22 30D/S-PT STATES SHE NO LONGER TAKES LINZESS 145MCG DAILY RX FILLED 11/27/22 30D/S PT STATES NOT TAKEN IN 3 MONTHS OR SO-
--- NOTE | 2022-12-29 11:59 | ED_ITS ---
HPI - Extremity Problem General: Chief complaint: Extremity Problem,Nontraumatic Stated complaint: LT thumb pain (previous arthroplasty) Time Seen by Provider: 12/29/22 11:25 History of Present Illness: Patient presents to the ER with left thumb pain that started yesterday yesterday after she lifted a heavy bag of groceries. Previous surgery to this area applied approximately 4. Patient has been doing good up until yesterday. Patient has not taken anything for pain. Thumb does hurt to move. Review of Systems General: Reports: 10 or more systems reviewed and unremarkable except in HPI and below PFSH ED PFSH: Medical History Abnormal thyroid function test ADHD Arthritis of carpometacarpal (CMC) joint of left thumb Benign essential HTN Chronic constipation Cubital tunnel syndrome on right Depression with anxiety Diabetic gastroparesis Elevated triglycerides with high cholesterol GERD (gastroesophageal reflux disease) Hyperlipidemia Insomnia Major depressive disorder, recurrent, in partial remission Neck pain on right side Obesity (BMI 30.0-34.9) Osteoarthritis involving joints of both upper arms Perimenopausal symptom Psychiatric care PTSD (post-traumatic stress disorder) Right carpal tunnel syndrome Type 2 diabetes mellitus, without long-term current use of insulin Surgical History H/O arthroscopic knee surgery 03/2014 H/O rotator cuff surgery left x2 H/O tubal ligation History of cholecystectomy Family History Family/Other Heart disease paternal uncle One uncle at age 36 and one 54 (previous bypass) Grandfather Heart disease paternal, triple bypass and valve replaced Other Cancer Diabetes Social History Smoking and tobacco status: former smoker Alcohol intake: never Substance/Drug Use: current Substance/Drug use frequency: daily Physical Exam Const: COMMON NORMALS: no acute distress, average body habitus, patient oriented x3, no limitations, healthy appearing, alert and well nourished HENMT: COMMON NORMALS: normocephalic, atraumatic, hearing grossly normal bilaterally, external ears normal, EAC's normal and Normal nasal mucous membranes and turbinates present HEAD & SCALP: normocephalic and atraumatic NOSE: Normal nasal mucous membranes and turbinates present EXTERNAL EAR: Yes external ears normal EXTERNAL AUDITORY CANAL: EAC's normal Neck/C-Spine: COMMON NORMALS: full ROM, no lymphadenopathy, supple, no meningeal signs, no JVD and Thyroid normal THYROID: Thyroid normal Chest: COMMONS NORMALS: normal inspection of the chest and normal palpation of entire chest wall Resp: COMMON NORMALS: normal respiratory effort, No retractions, No use of accessory muscles and clear to auscultation bilaterally AUSCULTATION: clear to auscultation bilaterally Cardio: COMMON NORMALS: no JVD, regular rate, regular rhythm, S1 normal heart sound present, S2 normal heart sound present, No gallops present (Cardio), No clicks present (Cardio) and No murmurs present (Cardio) RATE: regular rate RHYTHM: regular rhythm HEART SOUNDS: S1 normal heart sound present and S2 normal heart sound present GI: COMMON NORMALS: Normal to inspection, nondistended, normoactive bowel sounds present, Soft to palpation, non-tender and No hepatosplenomegaly present PALPATION: Yes Soft to palpation and Yes No hepatosplenomegaly present Extremity: NARRATIVE EXTREMITY EXAM: Patient is having at the base of her thumb side. This area is tender to palpate patient has range of motion restriction secondary to pain. Neuro: COMMON NORMALS: patient oriented x3 SENSORIUM/ORIENTATION: Yes alert MENINGEAL SIGNS: Yes no meningeal signs Course Vital Signs: Vital signs: Vital Signs Temperature 97.6 F 12/29/22 11:23 Pulse Rate 73 12/29/22 11:23 Respiratory Rate 16 12/29/22 11:23 Blood Pressure 141/69 12/29/22 11:23 Pulse Oximetry 96 12/29/22 11:23 Oxygen Delivery Me thod Room Air 12/29/22 11:23 MDM - Extremity (Nontraumatic) Medical Decision Making Patient presents to the ER with left thumb pain secondary to lifting a heavy object yesterday. Patient has had surgery by Dr. Marrero and was healing good up until this incident. Patient does have good range of motion but has pain with all ranges of motion. X-ray was taken which was negative. Patient will be instructed to continue [id number] ibuprofen as needed and to continue to follow-up with Dr. Marrero as already previously scheduled in approximately 3 days. Patient will be discharged Differential Diagnosis Unlikely herpes zoster, gout, cellulitis, superficial thrombophlebitis, deep venous thrombosis of upper extremity, lower extremity edema or deep vein thrombosis of lower extremity Medical Records I reviewed the patient's medical records. Lab Data I reviewed the patient's lab results. Radiology Impressions Hand X-Ray 12/29/22 11:31 IMPRESSION: No acute findings. Discharge Plan Discharge Patient Disposition: Home Clinical Impression: Pain of left thumb Condition: Stable Prescriptions: No Action atomoxetine 40 mg capsule 40 mg PO QAM Qty: 30 1RF Rx Instructions: stop 25 mg dose (NOT STARTED OF 12/29/22) atorvastatin 20 mg tablet 20 mg PO BEDTIME Qty: 90 1RF propranolol 40 mg tablet 40 mg PO BID Qty: 60 5RF amlodipine 5 mg tablet 5 mg PO QAM dexlansoprazole [Dexilant] 60 mg capsule,biphase delayed releas 60 mg PO QAM multivitamin Tablet 1 tab PO QAM biotin 800 mcg Tablet 800 mcg PO QAM Ventolin HFA 90 mcg/actuation Hfa Aerosol Inhaler 2 puff INHALATION QID PRN (Reason: Shortness Of Breath) vitamin E 268 mg (400 unit) Capsule 268 mg PO QAM magnesium 200 mg Tablet 200 mg PO BID atomoxetine 25 mg capsule 25 mg PO DAILY Rx Instructions: (NOT STARTED TAKING 40MG CAPS YET 12/29/22) quetiapine 100 mg tablet 100 mg PO BEDTIME sertraline 50 mg tablet 50 mg PO BEDTIME Prempro 0.3-1.5 mg tablet 1 tab PO QAM fenofibrate nanocrystallized 145 mg tablet 145 mg PO BEDTIME diclofenac sodium 1 % gel 2 - 4 g topical QID PRN (Reason: Pain) Rx Instructions: apply to left thumb Farxiga 10 mg tablet 10 mg PO QAM Discharge Orders: Discharge ED (Routine); Ordered 12/29/22 Ordered By: Neri Munoz Referrals: Jose Armando Cloud MD [Primary Care Provider] - 1 week Patient Instructions: Swollen Joint (ED) Activity Restrictions/Additional Instructions: Please take [id number] anti-inflammatories as needed as directed for pain. Please keep follow-up with Dr. Marrero as previously scheduled. 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
== END 2022-12-29 12:32 | disposition home or self-care (01) ==
PROVIDERS: Emergency Provider Emergency Medicine; PCP Family Medicine Adult Medicine
DX: M79.645 Pain in left finger(s) (principal); Z87.891 Personal history of nicotine dependence; E11.9 Type 2 diabetes mellitus without complications; I10 Essential (primary) hypertension; E78.5 Hyperlipidemia, unspecified
CPT/HCPCS: 73130; 99283

== ENCOUNTER → 2023-01-03 12:21 | Outpatient (BNVA) | payer MEDICARE, MEDICAID, SELFPAY | PROVIDERS: PCP Family Medicine Adult Medicine; Visit Provider Student in an Organized Health Care Education/Training Program | DX: S69.92XA Unspecified injury of left wrist, hand and finger(s), initial encounter (principal); X50.0XXA Overexertion from strenuous movement or load, initial encounter; Z98.890 Other specified postprocedural states | CPT/HCPCS: 99213 ==

== ENCOUNTER → 2023-07-16 11:08 | Outpatient (BNVA) | payer MEDICARE, MEDICAID, SELFPAY | PROVIDERS: PCP Family Medicine Adult Medicine; Visit Provider Student in an Organized Health Care Education/Training Program | DX: M77.01 Medial epicondylitis, right elbow; M18.11 Unilateral primary osteoarthritis of first carpometacarpal joint, right hand | CPT/HCPCS: 73080; 73130; 99213 ==

== ENCOUNTER → 2023-07-26 14:02 | Outpatient (BNVA) | payer MEDICARE, MEDICAID, SELFPAY | PROVIDERS: PCP Family Medicine Adult Medicine; Visit Provider Family Medicine Adult Medicine | DX: R94.6 Abnormal results of thyroid function studies (principal); E11.9 Type 2 diabetes mellitus without complications; I10 Essential (primary) hypertension | CPT/HCPCS: 80053; 80061; 83036; 84443; 85025 ==

== ENCOUNTER 2023-07-29 09:35 | Emergency (ER) | payer MEDICARE, MEDICAID, SELFPAY ==
[2023-07-29 09:40] VITALS: BP 138/85; PULSE 79; RESP 18; TEMP 36.6; O2SAT 96; BMI 37.8
--- NOTE | 2023-07-29 09:49 | ED_ITS ---
HPI - Abdominal Pain 2 General: Chief Complaint: Abdominal Pain Stated Complaint: abd pain Time Seen by Provider: 07/29/23 09:43 Source: patient Mode of arrival: ambulatory Limitations: no limitations History of Present Illness: Patient is a 48-year-old female presents to ED today with complaint of left- sided abdominal pain over the past 2 weeks. Patient states she will have occasional periods where she is not experiencing discomfort but otherwise pain has been fairly constant. She states it has been very difficult to have a stool and reporting hard rabbit stools. She states she chronically is on MiraLAX for chronic constipation but she has never experienced pain like this with her constipation. She reports she feels nauseous. She does have a history of gastroparesis. Patient has not been vomiting. No fevers. She denies ever having similar discomforts. MD elicited complaint: abdominal pain Onset (ago): week(s) Pain Consistency: intermittent Location: LUQ and LLQ Severity: moderate Quality: aching and dull Radiation: none Migration to: no migration Exacerbating factors: eating Relieving factors: nothing Associated Symptoms: Reports constipation (chronic) and nausea; Denies chills, diarrhea, dysuria, fever(s), hematochezia, hematemesis, melena, syncope and vomiting Related Data: Patient : No Review of Systems 2 Const: Denies: fever(s), chills, body aches, fatigue or malaise Card: Denies: chest pain, palpitations, irregular heart rhythm, lightheadedness, syncope or dyspnea on exertion Resp: Denies: dyspnea, productive cough or pain on inspiration GI: Reports: abdominal pain, nausea and constipation (chronic); Denies: vomiting, hematemesis, diarrhea, hematochezia or melena : Denies: flank pain, difficulty voiding, dysuria, urinary frequency or urinary urgency Musc: Denies: neck pain, back pain, extremity pain, extremity swelling or joint pain Skin/Breast: Denies: rash Neuro: Denies: headache(s), numbness in extremities, weakness in extremities, sensory changes or dizziness PFSH ED 2 PFSH: Medical History Abnormal thyroid function test Psychosocial stressors Drug withdrawal headache Osteoarthritis of carpometacarpal (CMC) joint of right thumb Major depressive disorder, recurrent, in partial remission Carpal tunnel syndrome of left wrist Cubital tunnel syndrome on right Arthritis of carpometacarpal (CMC) joint of left thumb Psychiatric care Chronic constipation Obesity (BMI 30.0-34.9) Osteoarthritis involving joints of both upper arms Neck pain on right side Benign essential HTN Diabetic gastroparesis Insomnia Depression with anxiety PTSD (post-traumatic stress disorder) ADHD Hyperlipidemia GERD (gastroesophageal reflux disease) Elevated triglycerides with high cholesterol Type 2 diabetes mellitus, without long-term current use of insulin Surgical History History of bilateral carpal tunnel release Left CTS 09/11/2022 and right CTS 11/21/[address] Marrero H/O tubal ligation H/O arthroscopic knee surgery 03/2014 H/O rotator cuff surgery left x2 History of cholecystectomy Family History Family/Other Heart disease paternal uncle One uncle at age 36 and one 54 (previous bypass) Grandfather Heart disease paternal, triple bypass and valve replaced Other Cancer Diabetes Social History Smoking and tobacco/nicotine status: former use of tobacco/nicotine Alcohol intake: never Substance/Drug Use: current Substance/Drug use frequency: daily Physical Exam 2 Const: COMMON NORMALS: no acute distress, patient oriented x3, no limitations, alert and well nourished GENERAL APPEARANCE: cooperative NUTRITIONAL APPEARANCE: obese ORIENTATION/CONSCIOUSNESS: Yes awake, Yes oriented to person, Yes oriented to place and Yes oriented to time HENMT: COMMON NORMALS: normocephalic and atraumatic HEAD & SCALP: normal to inspection, normocephalic and atraumatic Eye: COMMON NORMALS: no scleral icterus Neck/C-Spine: COMMON NORMALS: full ROM, no lymphadenopathy, supple and no meningeal signs Chest: COMMONS NORMALS: normal inspection of the chest Resp: COMMON NORMALS: normal respiratory effort and clear to auscultation bilaterally AUSCULTATION: clear to auscultation bilaterally Cardio: COMMON NORMALS: regular rate and regular rhythm RATE: regular rate RHYTHM: regular rhythm GI: COMMON NORMALS: Normal to inspection, nondistended, normoactive bowel sounds present, Soft to palpation, No hepatosplenomegaly present and no masses INSPECTION: Yes normal to inspection PALPATION: Yes Soft to palpation, Yes Tenderness to palpation present (GI) (throughout abdomen but max tenderness to LLQ), Yes Guarding due to palpation present (GI), No Rigid due to palpation and Yes No hepatosplenomegaly present : COMMON NORMALS: Yes no CVA tenderness BLADDER/KIDNEY EXAM: Yes no CVA tenderness Back/Pelvis: COMMON NORMALS: no CVA tenderness and thoracic and lumbar spine normal to inspection Extremity: COMMON NORMALS: normal to inspection GENERAL: Yes normal exam except as noted Neuro: COMMON NORMALS: patient oriented x3 SENSORIUM/ORIENTATION: Yes alert, Yes oriented to person, Yes oriented to place and Yes oriented to time MENINGEAL SIGNS: Yes no meningeal signs Skin: COMMON NORMALS: no rashes or lesions noted GENERAL SKIN EXAM: no rashes or lesions noted Course 2 Vital Signs: Vital signs: Vital Signs Temperature 97.8 F 07/29/23 09:40 Pulse Rate 79 07/29/23 09:40 Respiratory Rate 18 07/29/23 09:40 Blood Pressure 138/85 07/29/23 09:40 Pulse Oximetry 96 07/29/23 09:40 Oxygen Delivery Me thod Room Air 07/29/23 09:40 MDM - Abdominal Pain Medical Decision Making Patient appearing in no acute distress. Her vital signs are stable. Blood work overall is nonactionable. Her UA is grossly contaminated with 25-40 squamous epithelial cells. She has no urinary complaints. CT scan of her abdomen/pelvis showed no acute abdominal or pelvic abnormalities. Discussed increasing her MiraLAX and adding Colace and Senokot to aid in stool passage. Return to ED precautions given. Otherwise she can follow-up with primary care next week. Lab Data 07/29/23 09:56 07/29/23 09:56 Labs/Radiology: Laboratory Results WBC 5.65 10^3/uL (3.29-11.43) 07/29/23 09:56 RBC 4.97 10^6/uL (3.85-5.65) 07/29/23 09:56 Hgb 15.40 g/dL (11.27-16.99) 07/29/23 09:56 Hct 46.5 % (36-47) 07/29/23 09:56 MCV 93.6 fl (85-98) 07/29/23 09:56 MCH 31.0 pg (27-33) 07/29/23 09:56 MCHC 33.1 g/dL (30-55) 07/29/23 09:56 RDW 13.3 % (12.1-15.1) 07/29/23 09:56 Plt Count 272 10^3/cmm (157-399) 07/29/23 09:56 MPV 10.0 fL (7.4-10.4) 07/29/23 09:56 Neut % (Auto) 51.9 % 07/29/23 09:56 Lymph % (Auto) 35.9 % 07/29/23 09:56 [place] % (Auto) 6.7 % 07/29/23 09:56 Eos % (Auto) 4.2 % 07/29/23 09:56 Baso % (Auto) 0.9 % 07/29/23 09:56 Neut # (Auto) 2.93 10^3/uL (1.8-7.7) 07/29/23 09:56 Lymph # (Auto) 2.0 10^3/uL (0.8-4.8) 07/29/23 09:56 [place] # (Auto) 0.4 10^3/uL (0.2-0.9) 07/29/23 09:56 Eos # (Auto) 0.2 10^3/uL (0.0-0.8) 07/29/23 09:56 Baso # (Auto) 0.1 10^3/uL (0.0-0.1) 07/29/23 09:56 Nucleated RBC % (auto) 0 % 07/29/23 09:56 Nucleated RBCs # 0.0 /100WBC 07/29/23 09:56 Sodium 137 mmol/L (136-145) 07/29/23 09:56 Potassium 3.9 mmol/L (3.5-5.1) 07/29/23 09:56 Chloride 102 mmol/L (98-107) 07/29/23 09:56 Carbon Dioxide 23 mmol/L (22-29) 07/29/23 09:56 Anion Gap 15.9 (5-19) 07/29/23 09:56 BUN 16 mg/dL (6-20) 07/29/23 09:56 Creatinine 0.6 mg/dL (0.5-0.9) 07/29/23 09:56 GFR Calculation 106.7 mL/min (90-130) 07/29/23 09:56 Glucose 152 mg/dL (65-115) H 07/29/23 09:56 Calculated Osmolality 288 mOsm/kg (285-295) 07/29/23 09:56 Calcium 9.2 mg/dL (8.5-10.5) 07/29/23 09:56 Total Bilirubin 0.7 mg/dL (0.15-1.2) 07/29/23 09:56 AST 26 U/L (0-32) 07/29/23 09:56 ALT 27 U/L (0-33) 07/29/23 09:56 Alkaline Phosphatase 63 U/L (35-105) 07/29/23 09:56 Total Protein 8.2 g/dL (6.6-8.7) 07/29/23 09:56 Albumin 4.7 g/dL (3.5-5.2) 07/29/23 09:56 Globulin 3.5 g/dL (1.3-4.6) 07/29/23 09:56 Lipase 29 U/L (13-60) 07/29/23 09:56 HCG, Qual Negative (Negative) 07/29/23 09:56 Urine Color Yellow (Yellow) 07/29/23 10:01 Urine Appearance Hazy (CLEAR) A 07/29/23 10:01 Urine pH 5 (5-7) 07/29/23 10:01 Ur Specific [place] 1.020 (1.005-1.030) 07/29/23 10:01 Urine Protein Neg (Negative) 07/29/23 10:01 Urine Glucose (UA) 4+ (Normal) H 07/29/23 10:01 Urine Ketones Negative (Negative) 07/29/23 10:01 Urine Blood Neg (Negative) 07/29/23 10:01 Urine Nitrate Negative (Negative) 07/29/23 10:01 Urine Bilirubin Neg (Negative) 07/29/23 10:01 Urine Urobilinogen Norm mg/dL (Negative) 07/29/23 10:01 Ur Leukocyte Esterase Negative (Negative) 07/29/23 10:01 Urine RBC 0-4 /hpf (0-2) H 07/29/23 10:01 Urine WBC 5-10 /hpf (0-5) H 07/29/23 10:01 Ur Squamous Epith Cells 25-40 /hpf (0-5) H 07/29/23 10:01 Amorphous Sediment Not Reportable 07/29/23 10:01 Urine Bacteria 1+ /hpf (NONE) H 07/29/23 10:01 Urine Yeast 1+ /hpf H 07/29/23 10:01 All radiology interpretation(s) finalized by discharge Discharge Plan Discharge Patient Disposition: Home Clinical Impression: Chronic constipation Abdominal pain Qualifiers: Abdominal location: left lower quadrant Qualified Code(s): R10.32 - Left lower quadrant pain Condition: Stable Prescriptions: No Action quetiapine 100 mg tablet 100 mg PO BEDTIME Qty: 30 1RF propranolol 40 mg tablet 40 mg PO BID Qty: 60 5RF Prempro 0.3-1.5 mg tablet 1 tab PO QAM Qty: 84 3RF dexlansoprazole [Dexilant] 60 mg capsule,biphase delayed releas 60 mg PO QAM Qty: 90 2RF atorvastatin 20 mg tablet 20 mg PO BEDTIME Qty: 90 1RF fenofibrate nanocrystallized 145 mg tablet 145 mg PO BEDTIME Qty: 90 0RF amlodipine 5 mg tablet 5 mg PO QAM Flax, Fish and Borage Oil 400-5 mg-unit Capsule 3 cap PO DAILY multivitamin Tablet 1 tab PO QAM biotin 800 mcg Tablet 800 mcg PO QAM albuterol sulfate [Ventolin HFA] 90 mcg/actuation Hfa Aerosol Inhaler 2 puff INHALATION QID PRN (Reason: Shortness Of Breath) vitamin E 268 mg (400 unit) Capsule 268 mg PO QAM magnesium 200 mg Tablet 800 mg PO BID diclofenac sodium 1 % gel 2 - 4 g topical QID PRN (Reason: Pain) Rx Instructions: apply to left thumb Farxiga 10 mg tablet 10 mg PO QAM Discharge Orders: Discharge ED (Routine); Ordered 07/29/23 Ordered By: Crystal Wiley Referrals: Jose Armando Cloud MD [Primary Care Provider] - Patient Instructions: Constipation (DC), High Fiber Diet (ED), Abdominal Pain (ED) Coding Level of Care Code ED [employer] Professor for Chg Liliana
[2023-07-29 10:10] LABS: Basophils # 0.1 10^3/uL (0.0-0.1); Basophils % 0.9 %; Eosinophils # 0.2 10^3/uL (0.0-0.8); Eosinophils % 4.2 %; Hematocrit 46.5 % (36-47); Lymphocytes % 35.9 %; Mean Corpuscular HGB Conc 33.1 g/dL (30-55); Mean Corpuscular Volume 93.6 fl (85-98); Monocytes # 0.4 10^3/uL (0.2-0.9); Monocytes % 6.7 %; Neutrophils # 2.93 10^3/uL (1.8-7.7); Neutrophils % 51.9 %; Nucleated Red Blood Cells % 0 %; Platelet Count 272 10^3/cmm (157-399); Red Blood Count 4.97 10^6/uL (3.85-5.65); Red Cell Distribution Width 13.3 % (12.1-15.1); White Blood Count 5.65 10^3/uL (3.29-11.43)
[2023-07-29 10:25] LABS: Add Urine Culture? Yes; Add Urine Microscopic? YES; Bacteria Urine 1+ /hpf; Bilirubin Urine Neg (Negative); Blood Urine Neg (Negative); Glucose Urine UA 4+ (Normal); Ketones Urine Negative (Negative); Leukocyte Esterase Urine Negative (Negative); Nitrate Urine Negative (Negative); Protein Urine Neg (Negative); RBC Urine 0-4 /hpf (0-2); Squamous Epithelial Cell Urine 25-40 /hpf (0-5); Urine Appearance Hazy (CLEAR); Urine Color Yellow (Yellow); Urobilinogen Urine Norm (Negative); pH Urine 5 (5-7)
[2023-07-29 10:25] LABS: Alanine Aminotransferase 27 U/L (0-33); Albumin Level 4.7 g/dL (3.5-5.2); Alkaline Phosphatase 63 U/L (35-105); Anion Gap 15.9 (5-19); Aspartate Amino Transferase 26 U/L (0-32); Blood Urea Nitrogen 16 mg/dL (6-20); Calcium 9.2 mg/dL (8.5-10.5); Carbon Dioxide 23 mmol/L (22-29); Chloride 102 mmol/L (98-107); Globulin 3.5 g/dL (1.3-4.6); Glomerular Filtration Rate 106.7 mL/min (90-130); Glucose 152 mg/dL (65-115); Lipase 29 U/L (13-60); Osmolality Calculated 288 mOsm/kg (285-295); Potassium 3.9 mmol/L (3.5-5.1); Sodium 137 mmol/L (136-145); Total Bilirubin 0.7 mg/dL (0.15-1.2); Total Protein 8.2 g/dL (6.6-8.7)
[2023-07-29 10:32] LABS: HCG, Serum Qual Negative (Negative)
--- NOTE | 2023-07-29 11:26 | CT_ITS ---
WS: [id number] CT ABDOMEN AND PELVIS WITH CONTRAST HISTORY: L abdominal pain, nausea, trouble with BMs TECHNIQUE: Imaging performed of the abdomen and pelvis with IV contrast. Single phase imaging of the abdomen. Coronal and sagittal reformats are submitted. All CT scans at [facility] use at [address] one of these dose optimization techniques: automated exposure control; mA and/or kV adjustment per patient size (includes targeted exams where dose is matched to clinical indication); or iterative re construction. IV CONTRAST: Omnipaque 350; 100 mL IV. Oral contrast: No DLP: 963.05 mGy.cm COMPARISON: 09/10/2020 Lower thorax: Lung bases are clear. Heart is normal size. No hiatal hernia. Liver/biliary system: Hepatic steatosis. Fat-containing lesion in the RIGHT lobe of the liver measure s 8 mm most likely a lipoma based upon its Hounsfield units. Similar to the prior study from 2020. No bile duct dilatation. Gallbladder: Prior cholecystectomy. Pancreas: Normal size pancreas and pancreatic duct. No adjacent inflammation. Spleen: Normal size spleen. Partially calcified mass in the superior spleen and a smaller low-attenua tion lesion centrally. No change since 2020. Adrenal glands: Normal. Right kidney: Normal. Left kidney: Normal. Aorta: Mild atherosclerosis with no aneurysm. Lymphadenopathy: None. Free fluid: None. GI tract: Unremarkable. Abdominal wall: Fat containing umbilical hernia. Pelvis: No free fluid or adenopathy within the pelvis. Bones: Unremarkable. IMPRESSION: 1. No acute abdominal or pelvic abnormalities. 2. No renal obstruction or hydronephrosis. 3. Normal appendix. 4. No GI tract obstruction or colitis.
[2023-07-29] MEDS: iohexol 350 mg/mL 500 mL Btl (per mL) IV (12:17)
== END 2023-07-29 12:57 | disposition home or self-care (01) ==
PROVIDERS: Emergency Provider Physician Assistant; PCP Family Medicine Adult Medicine
DX: K59.09 Other constipation (principal); R10.32 Left lower quadrant pain; Z87.891 Personal history of nicotine dependence; I10 Essential (primary) hypertension; E78.5 Hyperlipidemia, unspecified; E11.9 Type 2 diabetes mellitus without complications
CPT/HCPCS: 74177; 80053; 81001; 83690; 84703; 85025; 87086; 99285; Q9967

== ENCOUNTER → 2023-08-20 09:06 | Outpatient (BNVA) | payer MEDICARE, MEDICAID, SELFPAY | PROVIDERS: PCP Family Medicine Adult Medicine; Referring Provider Family Medicine Adult Medicine; Visit Provider Surgery | DX: K59.09 Other constipation (principal); R10.31 Right lower quadrant pain; R10.32 Left lower quadrant pain; G89.29 Other chronic pain; K21.9 Gastro-esophageal reflux disease without esophagitis; E66.9 Obesity, unspecified | CPT/HCPCS: 99204 ==

== ENCOUNTER 2023-11-21 08:44 | Day surgery (SDC) | payer MEDICARE, MEDICAID, SELFPAY ==
--- NOTE | 2023-11-19 14:05 | PC.NURSE ---
Pt states she has had procedures at [facility] before and that the [facility] courtesy shuttle has transported her home afterwards. Pt lives directly behind the hospital on [address] and can see the [facility] from her apartment. Pt is scheduled for an EGD/Colonoscopy on . Pt states she has someone that can stay with her at home after the procedure. [facility] at [phone] called and states there will be a boom truck driver on . Vanessa Parada notified of pt request and cleared to be taken home by shuttle after procedure.
[2023-11-21 09:01] VITALS: BP 140/88; PULSE 78; RESP 14; TEMP 36.1; O2SAT 96; BMI 38.0
[2023-11-21] MEDS: sodium chloride 0.9% 1,000 ML 30 ML IV (09:11)
[2023-11-21 09:15] LABS: Glucose Point of Care 174 mg/dL (70-110)
--- NOTE | 2023-11-21 09:15 | ANES.PREANE2 ---
Pre-Anesthetic Assessment Height/Weight: Height 1.63 m Weight 100.698 kg Temp Pulse Resp BP Pulse Ox O2 Del Method 97.0 F L 78 14 140/88 96 Room Air 11/21/23 09:01 11/21/23 09:01 11/21/23 09:01 11/21/23 09:01 11/21/23 09:01 11/21/23 09:01 Operation Date: 11/21/23 09:50 Proposed Procedures p [id number] egd [id number] colon G0105 screen colon H ris K59.09,R10.31,K21.9(Not Applicable) - Amado Saucedo MD s Colonoscopy(Not Applicable) - Amado Saucedo MD Familial anesthetic complications: None Was Beta Donald taken within 24 hours: Yes Was Clonidine taken within 24 hours: N/A Last intake: Intake Last Liquid Date 11/20/23 Last Liquid Time 23:00 Last Solid Date 11/19/23 Last Solid Time 12:00 Social No alcohol and No tobacco former smoker, quit 3 years ago. On medical marijuana - 1 wk ago Exam alert, oriented x 3, clear to auscultation bilaterally and regular rate & rhythm Airway Mallampati: Class IV Dentition: false Comments: Comments: excess submandibular tissues Mild Maxillary prognathia Pulmonary Asthma CV/HEM Hypertension GI Gastroesophageal Reflux Disease gastroparesis Metabolic Diabetes Mellitus and Morbid Obesity Anesthetic Plan ASA status: 3 Anesthesia: MAC Risk of > 500 ml blood loss (7ml/kg in children): No Medications/Allergies Home Medications Medication Instructions Recorded Confirmed Last Taken Type albuterol sulfate 90 mcg/actuation 2 puff inhalation QID PRN 12/29/22 11/21/23 11/19/23 History aerosol inhaler (Ventolin HFA) Shortness Of Breath diclofenac sodium 1 % topical gel 2 - 4 g topical QID PRN Pain 12/29/22 11/21/23 11/19/23 History magnesium 200 mg tablet 800 mg PO BID 12/29/22 11/21/23 11/20/23 History conj estrogen-medroxyprogesterone 1 tab PO QAM #84 tabs 12/31/22 11/21/23 11/20/23 Rx 0.3 mg-1.5 mg tablet (Prempro) dexlansoprazole 60 mg 60 mg PO QAM #100 caps 10/17/23 11/21/23 11/20/23 Rx capsule,biphase delayed release (Dexilant) propranolol 40 mg tablet 40 mg PO BID #200 tabs 10/17/23 11/21/23 11/20/23 Rx amlodipine 5 mg tablet 5 mg PO QAM #100 tabs 10/22/23 11/21/23 11/20/23 Rx dapagliflozin propanediol 10 mg 10 mg PO QAM #100 tabs 10/22/23 11/21/23 11/20/23 Rx tablet (Farxiga) atorvastatin 20 mg tablet 20 mg PO DAILY 11/19/23 11/21/23 11/20/23 History fenofibrate nanocrystallized 145 145 mg PO .QHS 11/19/23 11/21/23 11/20/23 History mg tablet quetiapine 100 mg tablet 50 mg PO BEDTIME 11/19/23 11/21/23 11/20/23 History Allergies Allergy/AdvReac Type Severity Reaction Status Date / Time gabapentin [From Neurontin] Allergy Severe Temors Verified 08/25/23 09:54 metoclopramide [From Reglan] Allergy Intermediate ADR/ALGY-Pa Verified 08/25/23 09:54 lpitations mirtazapine [From Remeron] Allergy Intermediate ADR/ALGY-Pa Verified 08/25/23 09:54 lpitations duloxetine [From Cymbalta] Allergy vomit Verified 08/25/23 09:54 diclofenac [From Voltaren] AdvReac Intermediate Stomach Verified 08/25/23 09:54 problems. lamotrigine AdvReac Unknown ALGY-Redness Verified 08/25/23 09:54 of Skin meloxicam [From Mobic] AdvReac ADR-Gastrointestinal Verified 11/19/23 13:37 Upset Current Medications Generic Name Dose Route Start Last Admin Trade Name Freq PRN Reason Stop Dose Admin Sodium Chloride 1,000 mls @ 30 mls/hr 11/21/23 09:00 11/21/23 09:11 Sodium Chloride 0.9% IV 30 mls/hr .Q24H ИВАН Administration PFSH Anesthesia Medical History Abdominal pain, chronic, bilateral lower quadrant Psychosocial stressors Osteoarthritis of carpometacarpal (CMC) joint of right thumb Major depressive disorder, recurrent, in partial remission Carpal tunnel syndrome of left wrist Cubital tunnel syndrome on right Arthritis of carpometacarpal (CMC) joint of left thumb Psychiatric care Chronic constipation Obesity (BMI 30.0-34.9) Osteoarthritis involving joints of both upper arms Neck pain on right side Benign essential HTN Diabetic gastroparesis Insomnia Depression with anxiety PTSD (post-traumatic stress disorder) ADHD Hyperlipidemia GERD (gastroesophageal reflux disease) Elevated triglycerides with high cholesterol Type 2 diabetes mellitus, without long-term current use of insulin Surgical History History of bilateral carpal tunnel release Left CTS 09/11/2022 and right CTS 11/21/[address] Marrero H/O tubal ligation H/O arthroscopic knee surgery 03/2014 H/O rotator cuff surgery left x2 History of cholecystectomy Family History Family/Other Heart disease paternal uncle One uncle at age 36 and one 54 (previous bypass) Grandfather Heart disease paternal, triple bypass and valve replaced Other Cancer Diabetes Social History Smoking and tobacco/nicotine status: former use of tobacco/nicotine Alcohol intake: never Substance/Drug Use: current Substance/Drug use frequency: daily Data Anesthesia Cardiac Studies: No Data to Display
--- NOTE | 2023-11-21 09:20 | W.PM.OPSFHP ---
Same Day Surgery H&P Indication for Procedure/HPI DATE OF PROCEDURE: November 21, 2023 CHIEF COMPLAINT/INDICATIONFOR SURGICAL PROCEDURE: GERD and Abdominal pain PREOP DIAGNOSIS: Gerd and abdominal pain PLANNED PROCEDURE: Operation Date: 11/21/23 09:50 Proposed Procedures p [id number] egd [id number] colon G0105 screen colon H ris K59.09,R10.31,K21.9(Not Applicable) - Amado Saucedo MD s Colonoscopy(Not Applicable) - Amado Saucedo MD Medications/Allergies* Home Medications Medication Instructions Recorded Confirmed Type albuterol sulfate 90 mcg/actuation 2 puff inhalation QID PRN 12/29/22 11/21/23 History aerosol inhaler (Ventolin HFA) Shortness Of Breath diclofenac sodium 1 % topical gel 2 - 4 g topical QID PRN Pain 12/29/22 11/21/23 History magnesium 200 mg tablet 800 mg PO BID 12/29/22 11/21/23 History atorvastatin 20 mg tablet 20 mg PO DAILY 11/19/23 11/21/23 History fenofibrate nanocrystallized 145 145 mg PO .QHS 11/19/23 11/21/23 History mg tablet quetiapine 100 mg tablet 50 mg PO BEDTIME 11/19/23 11/21/23 History Allergies/Adverse Reactions Allergy/AdvReac Type Severity Reaction Status Date / Time gabapentin [From Neurontin] Allergy Severe Temors Verified 08/25/23 09:54 metoclopramide [From Reglan] Allergy Intermediate ADR/ALGY-Pa Verified 08/25/23 09:54 lpitations mirtazapine [From Remeron] Allergy Intermediate ADR/ALGY-Pa Verified 08/25/23 09:54 lpitations duloxetine [From Cymbalta] Allergy vomit Verified 08/25/23 09:54 diclofenac [From Voltaren] AdvReac Intermediate Stomach Verified 08/25/23 09:54 problems. lamotrigine AdvReac Unknown ALGY-Redness Verified 08/25/23 09:54 of Skin meloxicam [From Mobic] AdvReac ADR-Gastrointestinal Verified 11/19/23 13:37 Upset Current Medications: Generic Name Dose Route Start Last Admin Trade Name Freq PRN Reason Stop Dose Admin Sodium Chloride 1,000 mls @ 30 mls/hr 11/21/23 09:00 11/21/23 09:11 Sodium Chloride 0.9% IV 30 mls/hr .Q24H ИВАН Administration Pertinent History/Comorbid Conditions* Medical History (Updated 08/08/23 @ 07:02 by Jose Armando Cloud MD) Abdominal pain, chronic, bilateral lower quadrant Psychosocial stressors Osteoarthritis of carpometacarpal (CMC) joint of right thumb Major depressive disorder, recurrent, in partial remission Carpal tunnel syndrome of left wrist Cubital tunnel syndrome on right Arthritis of carpometacarpal (CMC) joint of left thumb Psychiatric care Chronic constipation Obesity (BMI 30.0-34.9) Osteoarthritis involving joints of both upper arms Neck pain on right side Benign essential HTN Diabetic gastroparesis Insomnia Depression with anxiety PTSD (post-traumatic stress disorder) ADHD Hyperlipidemia GERD (gastroesophageal reflux disease) Elevated triglycerides with high cholesterol Type 2 diabetes mellitus, without long-term current use of insulin Surgical History (Updated 03/28/23 @ 07:25 by Jose Armando Cloud MD) History of bilateral carpal tunnel release Left CTS 09/11/2022 and right CTS 11/21/[address] Marrero H/O tubal ligation H/O arthroscopic knee surgery 03/2014 H/O rotator cuff surgery left x2 History of cholecystectomy Family History (Updated 11/04/20 @ 10:24 by Niki Dailey LPN) Diabetes Heart disease Family/Other paternal uncle One uncle at age 36 and one 54 (previous bypass) Grandfather paternal, triple bypass and valve replaced Cancer Social History Smoking and tobacco/nicotine status: former use of tobacco/nicotine Alcohol intake: never Substance/Drug Use: current Substance/Drug use frequency: daily Pertinent Exam Findings alert, oriented x 3 and clear to auscultation bilaterally Recommendations Surgery/Procedure today Coding Level of Care Code Acute Code for Chg Liliana
[2023-11-21 10:57] VITALS: BP 130/80; PULSE 65; RESP 18; TEMP 36.2; O2SAT 98
[2023-11-21 11:20] VITALS: BP 125/79; PULSE 66; RESP 18; O2SAT 97
--- NOTE | 2023-11-21 11:40 | ANE.PACU2 ---
Inpatient post-anesthesia follow up: Airway intact: Yes Vital signs: Temperature 97.1 F Pulse Rate 66 Respiratory Rate 18 Blood Pressure 125/79 Pulse Oximetry 97 Oxygen Delivery Me thod Room Air Oxygen Flow Rate Fraction of Inspir ed Oxygen Hydration adequate: Yes Nausea and vomiting: No Pain level: 1 Mental status: Baseline
== END 2023-11-21 11:40 | disposition home or self-care (01) ==
PROVIDERS: PCP Family Medicine Adult Medicine; Visit Provider Surgery
PROC: 0DJ08ZZ Inspection of Upper Intestinal Tract, Via Natural or Artificial Opening Endoscopic (ICD-10-PCS; CPT 43235; principal; 2023-11-21 09:50)
PROC: 0DJD8ZZ Inspection of Lower Intestinal Tract, Via Natural or Artificial Opening Endoscopic (ICD-10-PCS; CPT 45378; 2023-11-21 09:50)
DX: K59.09 Other constipation (principal); R10.31 Right lower quadrant pain; R10.32 Left lower quadrant pain; G89.29 Other chronic pain; K21.9 Gastro-esophageal reflux disease without esophagitis; K64.4 Residual hemorrhoidal skin tags; K64.8 Other hemorrhoids; D12.3 Benign neoplasm of transverse colon; D12.5 Benign neoplasm of sigmoid colon; Z87.891 Personal history of nicotine dependence; J45.909 Unspecified asthma, uncomplicated; I10 Essential (primary) hypertension; E11.9 Type 2 diabetes mellitus without complications; E66.01 Morbid (severe) obesity due to excess calories; Z68.38 Body mass index [BMI] 38.0-38.9, adult; E78.5 Hyperlipidemia, unspecified
CPT/HCPCS: 36416; 43239; 45380; 45385; 82962; 88305; J2704; J7030

== ENCOUNTER 2023-12-20 08:07 | Outpatient (CLI) | payer MEDICARE, MEDICAID, SELFPAY ==
--- NOTE | 2023-12-20 08:12 | MM_ITS ---
WS: [id number] BILATERAL 3D TOMOSYNTHESIS DIGITAL SCREENING MAMMOGRAPHY WITH CAD CLINICAL INFORMATION: SCREENING HISTORY: Screening mammogram. LEFT breast pain COMPARISON: None. TECHNIQUE: Bilateral CC and MLO views. FINDINGS: Scattered fibroglandular densities bilaterally. No suspicious focal mass, asymmetry, calcifications, or architectural distortion. No evidence of malignancy. Incidental punctate and lucent centered calci fications. MM/[place] [id number] IMPRESSION: BI-RADS: 2-Benign FOLLOW UP: 1 Year Follow-up Recommend return to annual screening mammography.
== END 2023-12-20 08:08 | disposition home or self-care (01) ==
LOC: RAD 08:07
PROVIDERS: PCP Family Medicine Adult Medicine; Visit Provider Family Medicine Adult Medicine
DX: Z12.31 Encounter for screening mammogram for malignant neoplasm of breast (principal); R92.323 Mammographic fibroglandular density, bilateral breasts; R92.1 Mammographic calcification found on diagnostic imaging of breast
CPT/HCPCS: 77063; 77067

== ENCOUNTER 2024-01-21 11:21 | Outpatient (CLI) | payer MEDICARE, MEDICAID, SELFPAY | END 2024-01-21 11:22 | disposition home or self-care (01) | LOC: SPT 11:22 | PROVIDERS: PCP Family Medicine Adult Medicine; Visit Provider Physician Assistant | DX: M77.01 Medial epicondylitis, right elbow (principal); M18.11 Unilateral primary osteoarthritis of first carpometacarpal joint, right hand | CPT/HCPCS: 97760; 99213; L3924 ==

== ENCOUNTER 2024-03-10 09:14 | Outpatient (CLI) | payer MEDICARE, MEDICAID, SELFPAY ==
--- NOTE | 2024-03-10 09:19 | XRR_ITS ---
PROCEDURE INFORMATION: Exam: XR Right Hip Exam date and time: 03/10/2024 9:25 AM Age: 49 years old Clinical indication: Hip pain; Right hip; Additional info: Right hip pain TECHNIQUE: Imaging protocol: Radiologic exam of the right hip. Views: 1 view hip with pelvis when performed. COMPARISON: CT abdomen pelvis w con* [id number] 07/29/2023 12:07 PM FINDINGS: Bones/joints: Unremarkable. No acute fracture. Soft tissues: Unremarkable. XR/XR hip RT 2-3V wo/w pel* [id number] IMPRESSION: No acute findings.
--- NOTE | 2024-03-10 09:19 | XRR_ITS ---
PROCEDURE INFORMATION: Exam: XR Lumbosacral Spine Exam date and time: 03/10/2024 9:25 AM Age: 49 years old Clinical indication: Low back pain; Additional info: Lower back pain TECHNIQUE: Imaging protocol: Radiologic exam of the lumbosacral spine. Views: 2 or 3 views. COMPARISON: No relevant prior studies available. FINDINGS: Bones/joints: No fracture or other acute abnormality. There is a minimal lower lumbar levocurvature. Sagittal alignment is normal. Vertebral bodies, disc spaces, and posterior elements are unremarkable. Soft tissues: Unremarkable. Intraperitoneal space: There is a right upper quadrant clips. XR/XR lumbar spine 2-3V* [id number] IMPRESSION: No acute findings
[2024-03-10 10:01] LABS: Estmated Average Glucose 177; Hemoglobin A1C 7.8 % (4.0-6.0)
[2024-03-10 10:09] LABS: Alanine Aminotransferase 18 U/L (0-33); Albumin Level 4.7 g/dL (3.5-5.2); Alkaline Phosphatase 66 U/L (35-105); Anion Gap 17.1 (5-19); Aspartate Amino Transferase 16 U/L (0-32); Blood Urea Nitrogen 18 mg/dL (6-20); Calcium 9.7 mg/dL (8.5-10.5); Carbon Dioxide 24 mmol/L (22-29); Chloride 102 mmol/L (98-107); Globulin 2.6 g/dL (1.3-4.6); Glomerular Filtration Rate 106.3 mL/min (90-130); Glucose 162 mg/dL (65-115); Osmolality Calculated 293 mOsm/kg (285-295); Potassium 4.1 mmol/L (3.5-5.1); Sodium 139 mmol/L (136-145); Total Bilirubin 0.5 mg/dL (0.15-1.2); Total Protein 7.3 g/dL (6.6-8.7)
== END 2024-03-10 09:15 | disposition home or self-care (01) ==
LOC: RAD 09:16
PROVIDERS: PCP Family Medicine Adult Medicine
DX: M54.50 Low back pain, unspecified (principal); E11.69 Type 2 diabetes mellitus with other specified complication
CPT/HCPCS: 36415; 72100; 73502; 80053; 83036

== ENCOUNTER 2024-03-27 09:14 | Outpatient (RCR) | payer MEDICARE, MEDICAID, SELFPAY | END 2024-04-16 23:59 | disposition home or self-care (01) | LOC: SPT 09:14 | PROVIDERS: PCP Family Medicine Adult Medicine; Visit Provider Pediatrics | DX: M54.50 Low back pain, unspecified (principal) | CPT/HCPCS: 97110; 97161 ==

== ENCOUNTER 2024-05-21 06:53 | Emergency (ER) | payer MEDICARE, MEDICAID, SELFPAY ==
[2024-05-21 07:04] VITALS: BP 184/107; PULSE 86; RESP 16; TEMP 36.8; O2SAT 94; BMI 39.4
--- NOTE | 2024-05-21 07:16 | W.ED.BACK ---
HPI - Back Pain/Injury General: Chief Complaint: Back Pain/Injury Stated Complaint: back pain(not sleeping) Time Seen by Provider: 05/21/24 06:58 History of Present Illness: 49-year-old female presents emergency room complaining of back pain and pain radiating from the right lower back down the buttock across the lateral and anterior thigh on the right at times all the way down to her foot. She has not had any fecal incontinence or urinary retention. This has been an ongoing issue for about the last 4 to 5 months at 1 time she was in physical therapy it seemed to get better and now has worsened again. Her back is bothering if it has been difficult to sleep. She has tried some over the medicated counter medications with no relief. No recent trauma no previous surgery. Associated symptoms: Deny abdominal pain, chills, dysuria, fever(s) or urinary urgency Related Data Home Medications Medication Instructions Recorded Confirmed albuterol sulfate 90 mcg/actuation 2 puff inhalation QID PRN 12/29/22 03/10/24 aerosol inhaler (Ventolin HFA) Shortness Of Breath diclofenac sodium 1 % topical gel 2 - 4 g topical QID PRN Pain 12/29/22 03/10/24 magnesium 200 mg tablet 800 mg PO BID 12/29/22 03/10/24 atorvastatin 20 mg tablet 20 mg PO DAILY 11/19/23 03/10/24 fenofibrate nanocrystallized 145 145 mg PO .QHS 11/19/23 03/10/24 mg tablet quetiapine 100 mg tablet 50 mg PO BEDTIME 11/19/23 03/10/24 prednisone 20 mg tablet 40 mg PO BID 03/10/24 03/10/24 Previous Rx's Medication Instructions Recorded dexlansoprazole 60 mg 60 mg PO QAM #100 caps 10/17/23 capsule,biphase delayed release (Dexilant) pantoprazole 40 mg tablet,delayed 40 mg PO BID #90 tabs 11/21/23 release conj estrogen-medroxyprogesterone 1 tab PO QAM #84 tabs 11/22/23 0.3 mg-1.5 mg tablet (Prempro) diclofenac sodium 1 % topical gel 4 g topical QID #100 grams 01/21/24 (Voltaren Arthritis Pain) right CMC brace #1 ea 01/21/24 dapagliflozin propanediol 10 mg 10 mg PO QAM #100 tabs 02/25/24 tablet (Farxiga) amlodipine 5 mg tablet 5 mg PO QAM #100 tabs 04/13/24 propranolol 40 mg tablet 40 mg PO BID #180 tabs 05/18/24 diclofenac sodium 75 mg 75 mg PO Q12H PRN pain #20 tabs 05/21/24 tablet,delayed release prednisone 20 mg tablet 20 mg PO TID #15 tabs 05/21/24 tizanidine 4 mg tablet 4 mg PO Q6H PRN muscle spasticity 05/21/24 #20 tabs Allergies Allergy/AdvReac Type Severity Reaction Status Date / Time gabapentin [From Neurontin] Allergy Severe Temors Verified 03/10/24 08:33 metoclopramide [From Reglan] Allergy Intermediate ADR/ALGY-Pa Verified 03/10/24 08:33 lpitations mirtazapine [From Remeron] Allergy Intermediate ADR/ALGY-Pa Verified 03/10/24 08:33 lpitations duloxetine [From Cymbalta] Allergy vomit Verified 03/10/24 08:33 diclofenac [From Voltaren] AdvReac Intermediate Stomach Verified 03/10/24 08:33 problems. lamotrigine AdvReac Unknown ALGY-Redness Verified 03/10/24 08:33 of Skin meloxicam [From Mobic] AdvReac ADR-Gastrointestinal Verified 03/10/24 08:33 Upset Review of Systems Const: Denies: fever(s) or chills Card: Denies: chest pain Resp: Denies: dyspnea GI: Denies: abdominal pain : Denies: dysuria, urinary frequency or urinary urgency Musc: Reports: back pain; Denies: neck pain Skin/Breast: Denies: rash PFSH ED PFSH: Medical History Lower back pain Abdominal pain, chronic, bilateral lower quadrant Psychosocial stressors Osteoarthritis of carpometacarpal (CMC) joint of right thumb Major depressive disorder, recurrent, in partial remission Carpal tunnel syndrome of left wrist Cubital tunnel syndrome on right Arthritis of carpometacarpal (CMC) joint of left thumb Chronic constipation Obesity (BMI 30.0-34.9) Osteoarthritis involving joints of both upper arms Neck pain on right side Benign essential HTN Diabetic gastroparesis Insomnia Depression with anxiety PTSD (post-traumatic stress disorder) ADHD Hyperlipidemia GERD (gastroesophageal reflux disease) Elevated triglycerides with high cholesterol Type 2 diabetes mellitus, without long-term current use of insulin Surgical History History of esophagogastroduodenoscopy (EGD) Dr Mooney, repeat EGD 11/21/2023 Dr. Saucedo bx negative Hx of colonoscopy with polypectomy 2017 Dr Mansfield, repeat colonoscopy 11/21/2023 [facility] with multiple benign polyps History of bilateral carpal tunnel release Left CTS 09/11/2022 and right CTS 11/21/[address] Marrero H/O tubal ligation H/O arthroscopic knee surgery 03/2014 H/O rotator cuff surgery left x2 History of cholecystectomy Family History Family/Other Heart disease paternal uncle One uncle at age 36 and one 54 (previous bypass) Grandfather Heart disease paternal, triple bypass and valve replaced Other Cancer Diabetes Social History Smoking and tobacco/nicotine status: former use of tobacco/nicotine Alcohol intake: never Substance/Drug Use: current Substance/Drug use frequency: daily Physical Exam Const: COMMON NORMALS: no acute distress GENERAL APPEARANCE: cooperative and comfortable ORIENTATION/CONSCIOUSNESS: Yes awake, Yes oriented to person, Yes oriented to place and Yes oriented to time HENMT: COMMON NORMALS: normocephalic, atraumatic and hearing grossly normal bilaterally HEAD & SCALP: normocephalic and atraumatic Resp: COMMON NORMALS: normal respiratory effort, No retractions, No use of accessory muscles and clear to auscultation bilaterally AUSCULTATION: clear to auscultation bilaterally Cardio: COMMON NORMALS: regular rate, regular rhythm and No murmurs present (Cardio) RATE: regular rate RHYTHM: regular rhythm GI: COMMON NORMALS: Soft to palpation and No hepatosplenomegaly present AUSCULTATION: Yes normoactive bowel sounds PALPATION: Yes Soft to palpation, No Tenderness to palpation present (GI), No Guarding due to palpation present (GI) and Yes No hepatosplenomegaly present Extremity: COMMON NORMALS: normal to inspection, capillary refill normal, no clubbing, cyanosis or edema, no calf tenderness and no pedal edema Neuro: SENSORIUM/ORIENTATION: Yes oriented to person, Yes oriented to place and Yes oriented to time OTHER: Straight leg raising is negative. Dorsum plantarflexion 5 of 5 deep tendon reflexes at the patellar tendons bilaterally are difficult to elicit 1 of 4 at best bilaterally. Sensation normal to the lower extremities. Skin: COMMON NORMALS: no rashes or lesions noted GENERAL SKIN EXAM: no rashes or lesions noted Course Vital Signs: Vital signs: Vital Signs Temperature 98.2 F 05/21/24 07:04 Pulse Rate 76 05/21/24 07:37 Respiratory Rate 17 05/21/24 07:37 Blood Pressure 129/90 05/21/24 07:37 Pulse Oximetry 94 05/21/24 07:37 Oxygen Delivery Me thod Room Air 05/21/24 07:04 MDM - Back Pain/Injury Medical Decision Making Patient does have lumbar radiculopathy. No findings of acute cauda equina syndrome at this time. Will discharge home steroid taper anti-inflammatories and muscle relaxer. Since she has had success with physical therapy in the past encouraged her to follow-up with her primary care doctor to explore those options including return to physical therapy. She has had lumbar films earlier this fall which were negative. We did not repeat any imaging since there is no trauma at this time. She has no cauda equina did not do any advanced imaging. She may ultimately need an MRI as an outpatient if her symptoms persist. Recommend follow-up with primary care All radiology interpretation(s) finalized by discharge Discharge Plan Discharge Patient Disposition: Home Clinical Impression: Lumbar radiculopathy Condition: Stable Prescriptions: New tizanidine 4 mg tablet 4 mg PO Q6H PRN (Reason: muscle spasticity) Qty: 20 0RF Rx Instructions: do not exceed 3 doses per 24 hrs prednisone 20 mg tablet 20 mg PO TID Qty: 15 0RF Rx Instructions: 1 p.o. 3 times daily x3 days, 1 p.o. twice daily x2 days, 1 p.o. daily x2 days diclofenac sodium 75 mg tablet,delayed release (DR/EC) 75 mg PO Q12H PRN (Reason: pain) Qty: 20 0RF Discontinued cyclobenzaprine 5 mg tablet 5 mg PO TID PRN (Reason: muscle spasm) Qty: 30 0RF No Action diclofenac sodium [Voltaren Arthritis Pain] 1 % gel 4 g topical QID Qty: 100 0RF Rx Instructions: apply to single knee, ankle, foot; for foot includes sole/toes/top of foot (DME) right CMC brace See Rx Instructions .Route .MEDSUPPLY Qty: 1 0RF Rx Instructions: As directed prednisone 20 mg tablet 40 mg PO BID dexlansoprazole [Dexilant] 60 mg capsule,biphase delayed releas 60 mg PO QAM Qty: 100 2RF Prempro 0.3-1.5 mg tablet 1 tab PO QAM Qty: 84 3RF Farxiga 10 mg tablet 10 mg PO QAM Qty: 100 1RF amlodipine 5 mg tablet 5 mg PO QAM Qty: 100 1RF propranolol 40 mg tablet 40 mg PO BID Qty: 180 0RF atorvastatin 20 mg tablet 20 mg PO DAILY Rx Instructions: TAKE 1 TABLET BY MOUTH AT BEDTIME quetiapine 100 mg tablet 50 mg PO BEDTIME fenofibrate nanocrystallized 145 mg tablet 145 mg PO .QHS Rx Instructions: TAKE 1 TABLET BY MOUTH AT BEDTIME pantoprazole 40 mg tablet,delayed release (DR/EC) 40 mg PO BID Qty: 90 0RF albuterol sulfate [Ventolin HFA] 90 mcg/actuation Hfa Aerosol Inhaler 2 puff INHALATION QID PRN (Reason: Shortness Of Breath) magnesium 200 mg Tablet 800 mg PO BID diclofenac sodium 1 % gel 2 - 4 g topical QID PRN (Reason: Pain) Rx Instructions: apply to left thumb Discharge Orders: Discharge ED (Routine); Ordered 05/21/24 Ordered By: Matt Reed Referrals: Jose Armando Colud MD [Primary Care Provider] - Discharge Diet: Usual diet Discharge Activity: Increase activity as tolerated Patient Instructions: Lumbar Radiculopathy (ED), Lower Back Exercises (ED), Opioid Safety, Pain Management Activity Restrictions/Additional Instructions: Thank you for choosing [facility] for your healthcare needs today. It is very important that you follow up as instructed or that you return to the Emergency Department should you have concerns or if your condition changes or worsens in any way. You were seen in the emergency room with complaints of low back pain. On exam there is no sign of cauda equina syndrome. Would recommend that you follow-up with your primary care doctor since you have had success with physical therapy in the past you may contact to see if they will refer you back. You are given anti-inflammatories and steroids and a muscle relaxer in the emergency room. Start the oral steroid taper tomorrow. You can use the diclofenac with food as needed as well as the tizanidine the tizanidine will make you sleepy. You should avoid driving or other activities where being sedated could be dangerous. Follow-up with your primary care doctor soon as you are able Coding Level of Care Code ED Patient Accounts Coordinator for Inga Ford
[2024-05-21] MEDS: ketorolac 60 mg/2 mL INJ IM (07:27)
[2024-05-21] MEDS: orphenadrine 30 mg/mL Inj 2 mL 60 MG IM (07:28)
[2024-05-21] MEDS: dexamethasone 10 mg/mL INJ IM (07:28)
[2024-05-21 07:37] VITALS: BP 129/90; PULSE 76; RESP 17; O2SAT 94
== END 2024-05-21 07:48 | disposition home or self-care (01) ==
PROVIDERS: Emergency Provider Family Medicine; PCP Family Medicine Adult Medicine
DX: M54.16 Radiculopathy, lumbar region (principal); Z87.891 Personal history of nicotine dependence; E11.43 Type 2 diabetes mellitus with diabetic autonomic (poly)neuropathy; K31.84 Gastroparesis; I10 Essential (primary) hypertension
CPT/HCPCS: 96372; 99284; J1100; J1885; J2360

== ENCOUNTER → 2024-06-22 10:59 | Outpatient (BNVA) | payer MEDICARE, MEDICAID, SELFPAY | PROVIDERS: PCP Family Medicine Adult Medicine; Visit Provider Family Medicine | DX: I10 Essential (primary) hypertension (principal); E11.69 Type 2 diabetes mellitus with other specified complication; E78.5 Hyperlipidemia, unspecified; K21.9 Gastro-esophageal reflux disease without esophagitis; K59.09 Other constipation; M54.41 Lumbago with sciatica, right side; G89.29 Other chronic pain; E11.43 Type 2 diabetes mellitus with diabetic autonomic (poly)neuropathy; K31.84 Gastroparesis; G47.01 Insomnia due to medical condition | CPT/HCPCS: 82043; 82607; 83036; 83735; 84439; 84443 ==

== ENCOUNTER 2024-06-24 08:26 | Outpatient (CLI) | payer MEDICARE, MEDICAID, SELFPAY ==
--- NOTE | 2024-06-24 08:45 | MR_ITS ---
WS: [id number] MRI LUMBAR SPINE NONCONTRAST TECHNIQUE: Sagittal T1, T2 and STIR imaging. Axial T1 and T2 imaging. CLINICAL INFORMATION: low back pain w/ R sciatica; anal incontinence COMPARISON: None. FINDINGS: Mild lumbar curve. No acute compression. No high-grade central canal stenosis. Tiny annular fissure a t L4-5. L1-L2: Mild annular bulging. Mild facet arthropathy. Spinal canal and foramen are patent. L2-L3: Normal. L3-L4: Annular bulging with narrowing LEFT subarticular recess. Slight impingement on traversing LEFT L4 nerve root. Spinal canal and foramen are patent. Mild facet arthropathy. L4-L5: Mild annular bulge with a tiny annular fissure. Mild facet arthropathy. Spinal canal and vito en are patent. L5-S1: Shallow LEFT paracentral disc bulging with slight contact of the LEFT S1 nerve root. Mild LEFT proximal foraminal narrowing. RIGHT foramen is patent. Mild to moderate facet arthropathy. Visualized pelvic bony structures: Normal. Paravertebral soft tissues: Normal. Small disc protrusions in the cervical spine on the compliance engineer imaging worse at C6-7 with slight contact o f the cervical cord. MR/MR lumbar spine wo con* [id number] IMPRESSION: 1. Mild lumbar curve. No acute compression. No high-grade central canal stenos is. 2. Tiny annular fissure at L4-5 with mild annular bulging. Slight effacement o f the ventral thecal sac. 3. Mild annular bulging L3-4 with slight narrowing LEFT subarticular recess an d slight impingement on the traversing LEFT L4 nerve root. 4. LEFT paracentral disc bulging L5-S1 slightly contacts the LEFT S1 nerve nicho t. 5. Small disc protrusions in the cervical spine on the compliance engineer imaging worse at C6-7 with slight contact of the cervical cord. This could be further evaluated with cervical spine MRI.
== END 2024-06-24 08:27 | disposition home or self-care (01) ==
LOC: RAD 08:27
PROVIDERS: PCP Family Medicine; Visit Provider Family Medicine
DX: M54.41 Lumbago with sciatica, right side (principal); G89.29 Other chronic pain; M53.86 Other specified dorsopathies, lumbar region; M51.369 Other intervertebral disc degeneration, lumbar region without mention of lumbar back pain or lower extremity pain; M51.379 Other intervertebral disc degeneration, lumbosacral region without mention of lumbar back pain or lower extremity pain; M50.223 Other cervical disc displacement at C6-C7 level
CPT/HCPCS: 72148

== ENCOUNTER 2024-07-03 11:19 | Emergency (ER) | payer MEDICARE, MEDICAID, SELFPAY ==
[2024-07-03 12:16] VITALS: BP 116/75; PULSE 82; RESP 17; TEMP 36.7; O2SAT 96; BMI 38.0
--- NOTE | 2024-07-03 13:03 | W.ED.BACK ---
HPI - Back Pain/Injury General: Chief Complaint: Back Pain/Injury Stated Complaint: back pain Time Seen by Provider: 07/03/24 13:02 Source: patient Mode of arrival: EMS Limitations: no limitations History of Present Illness: Patient is a 49-year-old female presents to ED today with a complaint of lower back pain. Patient has a history of lower back pain and recently underwent MRI imaging. She states her primary care provider called her with these results and plan is for physical therapy. Patient states earlier today she was leaning over to kiss her cats when she immediately felt something pull/pop to her right lower back. Patient states following this she took some Voltaren which did help with her pain. She states she tries not to take this medication as it upsets her stomach due to her history of gastroparesis. Patient denies numbness, tingling, loss of sensation to her legs. She is not complaining of any saddle anesthesia MR/MR lumbar spine wo con* [id number] IMPRESSION: 1. Mild lumbar curve. No acute compression. No high-grade central canal stenosis. 2. Tiny annular fissure at L4-5 with mild annular bulging. Slight effacement of the ventral thecal sac. 3. Mild annular bulging L3-4 with slight narrowing LEFT subarticular recess and slight impingement on the traversing LEFT L4 nerve root. 4. LEFT paracentral disc bulging L5-S1 slightly contacts the LEFT S1 nerve root. 5. Small disc protrusions in the cervical spine on the eap consultant imaging worse at C6-7 with slight contact of the cervical cord. This could be further evaluated with cervical spine MRI. MD elicited complaint: back pain Pertinent past history: prior back pain Onset (ago): hour(s) Timing: constant Severity: moderate Pain scale (0-10): 6 Similar Symptoms Previously: Yes Location: right lower back Radiation: none Exacerbating factors: movement Relieving factors: none Context: turning/twisting and bending Associated symptoms: Reports no associated symptoms; Deny abdominal pain, difficulty walking or fever(s) Work related injury: No Related Data Home Medications Medication Instructions Recorded Confirmed albuterol sulfate 90 mcg/actuation 2 puff inhalation QID PRN 12/29/22 06/22/24 aerosol inhaler (Ventolin HFA) Shortness Of Breath diclofenac sodium 1 % topical gel 2 - 4 g topical QID PRN Pain 12/29/22 06/22/24 magnesium 200 mg tablet 800 mg PO BID 12/29/22 06/22/24 atorvastatin 20 mg tablet 20 mg PO DAILY 11/19/23 06/22/24 fenofibrate nanocrystallized 145 145 mg PO .QHS 11/19/23 06/22/24 mg tablet Previous Rx's Medication Instructions Recorded dexlansoprazole 60 mg 60 mg PO QAM #100 caps 10/17/23 capsule,biphase delayed release (Dexilant) conj estrogen-medroxyprogesterone 1 tab PO QAM #84 tabs 11/22/23 0.3 mg-1.5 mg tablet (Prempro) diclofenac sodium 1 % topical gel 4 g topical QID #100 grams 01/21/24 (Voltaren Arthritis Pain) right CMC brace #1 ea 01/21/24 dapagliflozin propanediol 10 mg 10 mg PO QAM #100 tabs 02/25/24 tablet (Farxiga) propranolol 40 mg tablet 40 mg PO BID #180 tabs 05/18/24 diazepam 10 mg tablet 10 mg PO ONCE claustrophobia for 06/22/24 MRI #1 tab metformin 500 mg tablet 500 mg PO .qpm #30 tabs 06/22/24 methocarbamol 500 mg tablet 1,000 mg (2 x 500 mg) PO Q8H #30 07/03/24 tabs methylprednisolone 4 mg tablets in See Rx Instructions PO .COMPLEX 07/03/24 a dose pack (Medrol (Sagar)) #21 ea Allergies Allergy/AdvReac Type Severity Reaction Status Date / Time gabapentin [From Neurontin] Allergy Severe Temors Verified 06/22/24 09:20 metoclopramide [From Reglan] Allergy Intermediate ADR/ALGY-Pa Verified 06/22/24 09:20 lpitations mirtazapine [From Remeron] Allergy Intermediate ADR/ALGY-Pa Verified 06/22/24 09:20 lpitations duloxetine [From Cymbalta] Allergy vomit Verified 06/22/24 09:20 diclofenac [From Voltaren] AdvReac Intermediate Stomach Verified 06/22/24 09:20 problems. lamotrigine AdvReac Unknown ALGY-Redness Verified 06/22/24 09:20 of Skin meloxicam [From Mobic] AdvReac ADR-Gastrointestinal Verified 06/22/24 09:20 Upset Review of Systems Const: Denies: fever(s) Card: Denies: chest pain Resp: Denies: dyspnea GI: Denies: abdominal pain Musc: Reports: back pain; Denies: neck pain, extremity pain, extremity swelling, joint pain or joint swelling Neuro: Denies: numbness in extremities, weakness in extremities, sensory changes or difficulty walking PFSH ED PFSH: Medical History On hormone replacement therapy on prempro Nicotine dependence, cigarettes, in remission Rectal incontinence checking MRI lumbar 1.6.25 but may be due to overflow Chronic low back pain with right-sided sciatica Abdominal pain, chronic, bilateral lower quadrant Psychosocial stressors Osteoarthritis of carpometacarpal (CMC) joint of right thumb Major depressive disorder, recurrent, in partial remission Cubital tunnel syndrome on right Arthritis of carpometacarpal (CMC) joint of left thumb Chronic constipation Obesity (BMI 30.0-34.9) Osteoarthritis involving joints of both upper arms Neck pain on right side Benign essential HTN Diabetic gastroparesis per her report has seen GI specialists at [facility]--was told she was too far gone to do anything; not a candidate for the stimulator; linzess causes cramping; using magnesium Insomnia Depression with anxiety PTSD (post-traumatic stress disorder) ADHD Hyperlipidemia GERD (gastroesophageal reflux disease) Elevated triglycerides with high cholesterol Type 2 diabetes mellitus, without long-term current use of insulin Surgical History History of esophagogastroduodenoscopy (EGD) Dr Mooney, repeat EGD 11/21/2023 Dr. Saucedo bx negative Hx of colonoscopy with polypectomy 2017 Dr Mansfield, repeat colonoscopy 11/21/2023 [facility] with multiple benign polyps History of bilateral carpal tunnel release Left CTS 09/11/2022 and right CTS 11/21/[address] Marrero H/O tubal ligation H/O arthroscopic knee surgery bilateral H/O rotator cuff surgery left x2 History of cholecystectomy Family History Family/Other Heart disease paternal uncle One uncle at age 36 and one 54 (previous bypass) Grandfather Heart disease paternal, triple bypass and valve replaced Father No problems noted. Other Cancer Diabetes Social History Smoking and tobacco/nicotine status: former use of tobacco/nicotine Quit status (tobacco/nicotine): has quit using Year quit tobacco: 2019 Alcohol intake: never Substance/Drug Use: current Substance/Drug use frequency: daily Household members: none Marital status: Single Number of children: 3 Highest education level completed: Some College, No Degree Current occupational status: disabled Previous occupational history: disabled for mental illness and gastroparesis Physical Exam Const: COMMON NORMALS: no acute distress, patient oriented x3, no limitations and alert GENERAL APPEARANCE: cooperative NUTRITIONAL APPEARANCE: obese Neck/C-Spine: COMMON NORMALS: full ROM CERVICAL SPINE: No pain with cervical ROM and No Cervical spine tenderness Resp: COMMON NORMALS: normal respiratory effort and clear to auscultation bilaterally AUSCULTATION: clear to auscultation bilaterally Cardio: COMMON NORMALS: regular rate and regular rhythm RATE: regular rate RHYTHM: regular rhythm GI: COMMON NORMALS: Soft to palpation, non-tender and no masses PALPATION: Yes Soft to palpation : COMMON NORMALS: Yes no CVA tenderness BLADDER/KIDNEY EXAM: Yes no CVA tenderness Back/Pelvis: COMMON NORMALS: no CVA tenderness, thoracic and lumbar spine normal to inspection and straight leg raise negative bilaterally LUMBAR SPINE/LOWER BACK: Yes paraspinal muscle tenderness, No paraspinal muscle spasm, No mass present and Yes straight leg raise negative bilaterally PELVIS: Yes buttocks normal SACRUM: no tenderness COCCYX: no tenderness BACK IMAGE (FEMALE): 1. TTP Extremity: COMMON NORMALS: normal to inspection, capillary refill normal, no clubbing, cyanosis or edema and no pedal edema GENERAL: Yes normal exam except as noted Neuro: COMMON NORMALS: patient oriented x3, moves all extremities, no focal motor deficits and no sensory deficits noted SENSORIUM/ORIENTATION: Yes alert Course Vital Signs: Vital signs: Vital Signs Temperature 98.0 F 07/03/24 12:16 Pulse Rate 82 07/03/24 12:16 Respiratory Rate 16 07/03/24 13:32 Blood Pressure 116/75 07/03/24 12:16 Pulse Oximetry 98 07/03/24 13:32 Oxygen Delivery Me thod Room Air 07/03/24 12:16 MDM - Back Pain/Injury Medical Decision Making Patient has no acute neurologic deficits on history or physical examination. She was ambulatory here without difficulty or assistance. She has muscle relaxers at home but does not like her Zanaflex as it gives her dry mouth. We will switch her to Robaxin. Will place her on steroids. Will avoid further anti-inflammatories as she states this upsets her stomach secondary to her gastroparesis. She can also use ice and heat. Recommend follow-up with primary care. Medical Records I reviewed the patient's medical records. No radiology studies performed this visit Discharge Plan Discharge Patient Disposition: Home Clinical Impression: Low back pain Qualifiers: Chronicity: unspecified Back pain laterality: midline Sciatica presence: without sciatica Qualified Code(s): M54.50 - Low back pain, unspecified Condition: Stable Prescriptions: New methocarbamol 500 mg tablet 1,000 mg PO Q8H Qty: 30 0RF methylprednisolone [Medrol (Sagar)] 4 mg tablets,dose pack See Rx Instructions .ROUTE .COMPLEX Qty: 21 0RF Rx Instructions: orally per package directions Discontinued tizanidine 4 mg tablet 4 mg PO Q6H PRN (Reason: muscle spasticity) Qty: 20 0RF Rx Instructions: do not exceed 3 doses per 24 hrs No Action diclofenac sodium [Voltaren Arthritis Pain] 1 % gel 4 g topical QID Qty: 100 0RF Rx Instructions: apply to single knee, ankle, foot; for foot includes sole/toes/top of foot (DME) right CMC brace See Rx Instructions .Route .MEDSUPPLY Qty: 1 0RF Rx Instructions: As directed diazepam 10 mg tablet 10 mg PO ONCE Qty: 1 0RF dexlansoprazole [Dexilant] 60 mg capsule,biphase delayed releas 60 mg PO QAM Qty: 100 2RF Prempro 0.3-1.5 mg tablet 1 tab PO QAM Qty: 84 3RF Farxiga 10 mg tablet 10 mg PO QAM Qty: 100 1RF propranolol 40 mg tablet 40 mg PO BID Qty: 180 0RF metformin 500 mg tablet 500 mg PO .qpm Qty: 30 5RF atorvastatin 20 mg tablet 20 mg PO DAILY Rx Instructions: TAKE 1 TABLET BY MOUTH AT BEDTIME fenofibrate nanocrystallized 145 mg tablet 145 mg PO .QHS Rx Instructions: TAKE 1 TABLET BY MOUTH AT BEDTIME albuterol sulfate [Ventolin HFA] 90 mcg/actuation Hfa Aerosol Inhaler 2 puff INHALATION QID PRN (Reason: Shortness Of Breath) magnesium 200 mg Tablet 800 mg PO BID diclofenac sodium 1 % gel 2 - 4 g topical QID PRN (Reason: Pain) Rx Instructions: apply to left thumb Discharge Orders: Discharge ED (Routine); Ordered 07/03/24 Ordered By: Crystal Wiley Referrals: Georgie Koroma MD [Primary Care Provider] - Activity Restrictions/Additional Instructions: Please follow-up with primary care in 1 to 2 weeks for further evaluation of your back pain if it does not begin to improve. Continue plan for physical therapy. You may stop your tenacity and as you did not like the side effects of this. Will try you on Robaxin as well as steroids. Will stay away from oral anti-inflammatories as you have indicated this upsets your stomach. Coding Level of Care Code ED Fixture Relamper for Inga Ford
[2024-07-03] MEDS: orphenadrine 30 mg/mL Inj 2 mL 60 MG IM (13:31)
[2024-07-03] MEDS: dexamethasone 10 mg/mL INJ IM (13:31)
[2024-07-03 13:32] VITALS: RESP 16; O2SAT 98
[2024-07-03] MEDS: morphine 4 mg/mL SDV 1 mL IM (13:32)
== END 2024-07-03 14:29 | disposition home or self-care (01) ==
PROVIDERS: Emergency Provider Physician Assistant; PCP Family Medicine
DX: M54.50 Low back pain, unspecified (principal); Z79.84 Long term (current) use of oral hypoglycemic drugs; Z87.891 Personal history of nicotine dependence; E78.5 Hyperlipidemia, unspecified; E11.9 Type 2 diabetes mellitus without complications
CPT/HCPCS: 96372; 99284; J1100; J2270; J2360

== ENCOUNTER 2024-12-03 16:54 | Emergency (ER) | payer MEDICARE, MEDICAID, SELFPAY ==
[2024-12-03 16:56] VITALS: BP 115/73; PULSE 78; RESP 16; TEMP 36.7; O2SAT 95
--- NOTE | 2024-12-03 17:32 | ECG_ITS ---
[employer] IMVU Test Date: 2024-12-03 Pat Name: Maki Staley Department: Room: Gender: Female Incident Handler: : 1975 Requested By: Matt Rucker Order Number: [id number] Fer MD: Polly Key M.D. Measurements Intervals [place] Rate: 75 P: 29 PA: 172 QRS: -7 QRSD: 108 T: 5 QT: 365 QTc: 409 Interpretive Statements SINUS RHYTHM INCOMPLETE RIGHT BUNDLE BRANCH BLOCK [90+ ms QRS DURATION, TERMINAL R IN V1/V2, 40+ ms S IN I/aVL/V4/V5/V6] MINIMAL VOLTAGE CRITERIA FOR LVH, CONSIDER NORMAL VARIANT [MEETS CRITERIA IN ONE OF: R(aVL), S(V1), R(V5), R(V5/V6)+S(V1)] Compared to ECG 09/29/2020 00:01:21 T-wave abnormality no longer present Possible ischemia no longer present Electronically Signed On 12-06-2024 19:32:29 CDT by Polly Key M.D. [email or web address] [id number]
--- NOTE | 2024-12-03 17:32 | XRR_ITS ---
PROCEDURE INFORMATION: Exam: XR Chest Exam date and time: 12/03/2024 5:41 PM Age: 49 years old Clinical indication: Pain; Other: RT shoulder; Additional info: Chest pain TECHNIQUE: Imaging protocol: Radiologic exam of the chest. Views: 1 view. COMPARISON: CR XR chest 1V portable [id number] 09/28/2020 9:49 PM FINDINGS: Lungs: No pulmonary consolidation. Pleural spaces: No pleural effusion or pneumothorax. Heart/Mediastinum: Heart size is within normal limits. Bones/joints: No acute osseous abnormalities are seen. XR/XR chest 1V portable [id number] IMPRESSION: No acute cardiopulmonary disease.
[2024-12-03 17:46] LABS: Basophils % 0.6 %; Eosinophils # 0.1 10^3/uL (0.0-0.8); Eosinophils % 2.1 %; Hematocrit 45.5 % (36-47); Lymphocytes # 2.6 10^3/uL (0.8-4.8); Lymphocytes % 40.1 %; Mean Corpuscular HGB Conc 33.6 g/dL (30-55); Mean Corpuscular Hemoglobin 30.8 pg (27-33); Mean Corpuscular Volume 91.7 fl (85-98); Mean Platelet Volume 11.1 fL (7.4-10.4); Monocytes # 0.4 10^3/uL (0.2-0.9); Monocytes % 6.7 %; Neutrophils # 3.32 10^3/uL (1.8-7.7); Neutrophils % 50.3 %; Nucleated Red Blood Cells % 0 %; Platelet Count 297 10^3/cmm (157-399); Red Blood Count 4.96 10^6/uL (3.85-5.65); Red Cell Distribution Width 13.2 % (12.1-15.1); White Blood Count 6.59 10^3/uL (3.29-11.43)
[2024-12-03 18:08] VITALS: BP 119/72; PULSE 75; O2SAT 95
[2024-12-03 18:17] LABS: Troponin(5th) Baseline < 6 ng/L (0-10)
[2024-12-03 18:19] LABS: Alanine Aminotransferase 18 U/L (0-33); Albumin Level 4.8 g/dL (3.5-5.2); Alkaline Phosphatase 76 U/L (35-105); Anion Gap 20.3 (5-19); Aspartate Amino Transferase 18 U/L (0-32); Blood Urea Nitrogen 10 mg/dL (6-20); Carbon Dioxide 21 mmol/L (22-29); Chloride 106 mmol/L (98-107); Creatinine Clr Calc Pharmacy 128.6101; Globulin 2.8 g/dL (1.3-4.6); Glomerular Filtration Rate 106.3 mL/min (90-130); Glucose 135 mg/dL (65-115); Osmolality Calculated 297 mOsm/kg (285-295); Potassium 4.3 mmol/L (3.5-5.1); Sodium 143 mmol/L (136-145); Total Bilirubin 0.6 mg/dL (0.15-1.2); Total Protein 7.6 g/dL (6.6-8.7)
--- NOTE | 2024-12-03 18:36 | W.ED.CHESTPA ---
HPI - Chest Pain General: Chief Complaint: Chest Pain Stated Complaint: left arm numbness Time Seen by Provider: 12/03/24 17:31 History of Present Illness: 49-year-old female presents emergency room complaining of left arm pain chest discomfort. She has been intermittent began earlier today it is worsening takes deep breath worse when she palpates. States she has been under a lot of stress she has no symptoms at all now. No history of any arrhythmias coronary artery disease. No vomiting no diarrhea no cough sweats chills fever. She states symptoms lasted only a few seconds at a time when she does get them no accompanying shortness of breath nausea or diaphoresis Associated symptoms: Deny abdominal pain, dyspnea or fever(s) Related Data Home Medications ?Medication ?Instructions ?Recorded ?Confirmed albuterol sulfate 90 mcg/actuation 2 puff inhalation QID PRN 12/29/22 06/22/24 aerosol inhaler (Ventolin HFA) Shortness Of Breath diclofenac sodium 1 % topical gel 2 - 4 g topical QID PRN Pain 12/29/22 06/22/24 magnesium 200 mg tablet 800 mg PO BID 12/29/22 06/22/24 fenofibrate nanocrystallized 145 145 mg PO .QHS 11/19/23 06/22/24 mg tablet Previous Rx's ?Medication ?Instructions ?Recorded diclofenac sodium 1 % topical gel 4 g topical QID #100 grams 01/21/24 (Voltaren Arthritis Pain) right CMC brace #1 ea 01/21/24 diazepam 10 mg tablet 10 mg PO ONCE claustrophobia for 06/22/24 MRI #1 tab metformin 500 mg tablet 500 mg PO .qpm #30 tabs 06/22/24 methocarbamol 500 mg tablet 1,000 mg (2 x 500 mg) PO Q8H #30 07/03/24 tabs methylprednisolone 4 mg tablets in See Rx Instructions PO .COMPLEX 07/03/24 a dose pack (Medrol (Sagar)) #21 ea dexlansoprazole 60 mg 60 mg PO QAM #100 caps 07/27/24 capsule,biphase delayed release (Dexilant) atorvastatin 20 mg tablet 20 mg PO DAILY #100 tabs 08/07/24 conj estrogen-medroxyprogesterone 1 tab PO QAM #84 tabs 08/07/24 0.3 mg-1.5 mg tablet (Prempro) dapagliflozin propanediol 10 mg 10 mg PO QAM #100 tabs 10/14/24 tablet (Farxiga) propranolol 40 mg tablet 40 mg PO BID #180 tabs 11/02/24 Allergies Allergy/AdvReac Type Severity Reaction Status Date / Time gabapentin (From Neurontin) Allergy Severe Temors Verified 06/22/24 09:20 metoclopramide (From Reglan) Allergy Intermediate ADR/ALGY-Pa Verified 06/22/24 09:20 lpitations mirtazapine (From Remeron) Allergy Intermediate ADR/ALGY-Pa Verified 06/22/24 09:20 lpitations duloxetine (From Cymbalta) Allergy vomit Verified 06/22/24 09:20 diclofenac (From Voltaren) AdvReac Intermediate Stomach Verified 06/22/24 09:20 problems. lamotrigine AdvReac Unknown ALGY-Redness Verified 06/22/24 09:20 of Skin meloxicam (From Mobic) AdvReac ADR-Gastrointestinal Verified 06/22/24 09:20 Upset Review of Systems Const: Denies: fever(s) or chills Card: Denies: chest pain Resp: Denies: dyspnea GI: Denies: abdominal pain : Denies: dysuria, urinary frequency or urinary urgency Musc: Denies: neck pain or back pain Skin/Breast: Denies: rash PFSH ED PFSH: Medical History On hormone replacement therapy on prempro Nicotine dependence, cigarettes, in remission Rectal incontinence checking MRI lumbar 1.6.25 but may be due to overflow Chronic low back pain with right-sided sciatica Abdominal pain, chronic, bilateral lower quadrant Psychosocial stressors Osteoarthritis of carpometacarpal (CMC) joint of right thumb Major depressive disorder, recurrent, in partial remission Cubital tunnel syndrome on right Arthritis of carpometacarpal (CMC) joint of left thumb Chronic constipation Obesity (BMI 30.0-34.9) Osteoarthritis involving joints of both upper arms Neck pain on right side Benign essential HTN Diabetic gastroparesis per her report has seen GI specialists at [facility]--was told she was too far gone to do anything; not a candidate for the stimulator; linzess causes cramping; using magnesium Insomnia Depression with anxiety PTSD (post-traumatic stress disorder) ADHD Hyperlipidemia GERD (gastroesophageal reflux disease) Elevated triglycerides with high cholesterol Type 2 diabetes mellitus, without long-term current use of insulin Surgical History History of esophagogastroduodenoscopy (EGD) Dr Mooney, repeat EGD 11/21/2023 Dr. Saucedo bx negative Hx of colonoscopy with polypectomy 2017 Dr Mansfield, repeat colonoscopy 11/21/2023 Lewis with multiple benign polyps History of bilateral carpal tunnel release Left CTS 09/11/2022 and right CTS 11/21/[address] Marrero H/O tubal ligation H/O arthroscopic knee surgery bilateral H/O rotator cuff surgery left x2 History of cholecystectomy Family History Family/Other Heart disease paternal uncle One uncle at age 36 and one 54 (previous bypass) Grandfather Heart disease paternal, triple bypass and valve replaced Father No problems noted. Other Cancer Diabetes Social History Smoking and tobacco/nicotine status: former use of tobacco/nicotine Quit status (tobacco/nicotine): has quit using Year quit tobacco: 2019 Alcohol intake: never Substance/Drug Use: current Substance/Drug use frequency: daily Household members: none Marital status: Single Number of children: 3 Highest education level completed: Some College, No Degree Current occupational status: disabled Previous occupational history: disabled for mental illness and gastroparesis Physical Exam Const: COMMON NORMALS: no acute distress GENERAL APPEARANCE: cooperative and comfortable ORIENTATION/CONSCIOUSNESS: Yes awake, Yes oriented to person, Yes oriented to place and Yes oriented to time HENMT: COMMON NORMALS: normocephalic, atraumatic and hearing grossly normal bilaterally HEAD & SCALP: normocephalic and atraumatic Resp: COMMON NORMALS: normal respiratory effort, No retractions, No use of accessory muscles and clear to auscultation bilaterally AUSCULTATION: clear to auscultation bilaterally Cardio: COMMON NORMALS: regular rate, regular rhythm and No murmurs present (Cardio) RATE: regular rate RHYTHM: regular rhythm GI: COMMON NORMALS: Soft to palpation and No hepatosplenomegaly present AUSCULTATION: Yes normoactive bowel sounds PALPATION: Yes Soft to palpation, No Tenderness to palpation present (GI), No Guarding due to palpation present (GI) and Yes No hepatosplenomegaly present Extremity: COMMON NORMALS: normal to inspection, capillary refill normal, no clubbing, cyanosis or edema, no calf tenderness and no pedal edema Neuro: SENSORIUM/ORIENTATION: Yes oriented to person, Yes oriented to place and Yes oriented to time Skin: COMMON NORMALS: no rashes or lesions noted GENERAL SKIN EXAM: no rashes or lesions noted Course Vital Signs: Vital signs: Vital Signs Temperature 98.1 F 12/03/24 16:56 Pulse Rate 75 12/03/24 18:08 Respiratory Rate 16 12/03/24 16:56 Blood Pressure 119/72 12/03/24 18:08 Pulse Oximetry 95 12/03/24 18:08 Oxygen Delivery Me thod Room Air 12/03/24 16:56 MDM - Chest Pain Medical Decision Making Patient initially seen evaluate sounds very noncardiac in nature. EKG done unremarkable patient decided she would like to leave. I do not think she needs to have the full cardiac workup given her description of symptoms at this point. She has worsening or change symptoms she can return Medical Records I reviewed the patient's medical records. Lab Data I reviewed the patient's lab results. 12/03/24 16:30 12/03/24 16:30 Radiology Impressions Chest X-Ray 12/03/24 17:32 IMPRESSION: No acute cardiopulmonary disease. Laboratory Results WBC 6.59 10^3/uL (3.29-11.43) 12/03/24 16:30 RBC 4.96 10^6/uL (3.85-5.65) 12/03/24 16:30 Hgb 15.30 g/dL (11.27-16.99) 12/03/24 16:30 Hct 45.5 % (36-47) 12/03/24 16:30 MCV 91.7 fl (85-98) 12/03/24 16:30 MCH 30.8 pg (27-33) 12/03/24 16:30 MCHC 33.6 g/dL (30-55) 12/03/24 16:30 RDW 13.2 % (12.1-15.1) 12/03/24 16:30 Plt Count 297 10^3/cmm (157-399) 12/03/24 16:30 MPV 11.1 fL (7.4-10.4) H 12/03/24 16:30 Neut % (Auto) 50.3 % 12/03/24 16:30 Lymph % (Auto) 40.1 % 12/03/24 16:30 [place] % (Auto) 6.7 % 12/03/24 16:30 Eos % (Auto) 2.1 % 12/03/24 16:30 Baso % (Auto) 0.6 % 12/03/24 16:30 Neut # (Auto) 3.32 10^3/uL (1.8-7.7) 12/03/24 16:30 Lymph # (Auto) 2.6 10^3/uL (0.8-4.8) 12/03/24 16:30 [place] # (Auto) 0.4 10^3/uL (0.2-0.9) 12/03/24 16:30 Eos # (Auto) 0.1 10^3/uL (0.0-0.8) 12/03/24 16:30 Baso # (Auto) 0.0 10^3/uL (0.0-0.1) 12/03/24 16: Nucleated RBC % (auto) 0 % 12/03/24 16: Nucleated RBCs # 0.0 /100WBC 12/03/24 16:30 Sodium 143 mmol/L (136-145) 12/03/24 16:30 Potassium 4.3 mmol/L (3.5-5.1) 12/03/24 16:30 Chloride 106 mmol/L (98-107) 12/03/24 16:30 Carbon Dioxide 21 mmol/L (22-29) L 12/03/24 16:30 Anion Gap 20.3 (5-19) H 12/03/24 16:30 BUN 10 mg/dL (6-20) 12/03/24 16:30 Creatinine 0.6 mg/dL (0.5-0.9) 12/03/24 16:30 GFR Calculation 106.3 mL/min (90-130) 12/03/24 16:30 Glucose 135 mg/dL (65-115) H 12/03/24 16:30 Calculated Osmolality 297 mOsm/kg (285-295) H 12/03/24 16:30 Calcium 10.0 mg/dL (8.5-10.5) 12/03/24 16:30 Total Bilirubin 0.6 mg/dL (0.15-1.2) 12/03/24 16:30 AST 18 U/L (0-32) 12/03/24 16:30 ALT 18 U/L (0-33) 12/03/24 16:30 Alkaline Phosphatase 76 U/L (35-105) 12/03/24 16:30 Troponin T Baseline < 6 ng/L (0-10) 12/03/24 16:30 Total Protein 7.6 g/dL (6.6-8.7) 12/03/24 16:30 Albumin 4.8 g/dL (3.5-5.2) 12/03/24 16:30 Globulin 2.8 g/dL (1.3-4.6) 12/03/24 16:30 All radiology interpretation(s) finalized by discharge EKG Data EKG 1: Interpretation: EKG 12/03/2024 normal sinus rhythm incomplete bundle branch block no acute ST changes noted no T wave inversion rate of 75 DE is 172 QTc 409. EKG compared to 09/29/2020 Discharge Plan Discharge Patient Disposition: Home Clinical Impression: Atypical chest pain Condition: Stable Prescriptions: No Action diclofenac sodium [Voltaren Arthritis Pain] 1 % gel 4 g topical QID Qty: 100 0RF Rx Instructions: apply to single knee, ankle, foot; for foot includes sole/toes/top of foot (DME) right CMC brace See Rx Instructions .Route .MEDSUPPLY Qty: 1 0RF Rx Instructions: As directed diazepam 10 mg tablet 10 mg PO ONCE Qty: 1 0RF metformin 500 mg tablet 500 mg PO .qpm Qty: 30 5RF dexlansoprazole [Dexilant] 60 mg capsule,biphase delayed releas 60 mg PO QAM Qty: 100 2RF atorvastatin 20 mg tablet 20 mg PO DAILY Qty: 100 1RF Rx Instructions: TAKE 1 TABLET BY MOUTH AT BEDTIME Prempro 0.3-1.5 mg tablet 1 tab PO QAM Qty: 84 3RF Farxiga 10 mg tablet 10 mg PO QAM Qty: 100 1RF propranolol 40 mg tablet 40 mg PO BID Qty: 180 0RF fenofibrate nanocrystallized 145 mg tablet 145 mg PO .QHS Rx Instructions: TAKE 1 TABLET BY MOUTH AT BEDTIME albuterol sulfate [Ventolin HFA] 90 mcg/actuation Hfa Aerosol Inhaler 2 puff INHALATION QID PRN (Reason: Shortness Of Breath) magnesium 200 mg Tablet 800 mg PO BID diclofenac sodium 1 % gel 2 - 4 g topical QID PRN (Reason: Pain) Rx Instructions: apply to left thumb methocarbamol 500 mg tablet 1,000 mg PO Q8H Qty: 30 0RF methylprednisolone [Medrol (Sagar)] 4 mg tablets,dose pack See Rx Instructions .ROUTE .COMPLEX Qty: 21 0RF Rx Instructions: orally per package directions Discharge Orders: Discharge ED (Routine); Ordered 12/03/24 Ordered By: Matt Reed Referrals: Georgie Koroma MD [Primary Care Provider, Family Practice] Discharge Diet: Usual diet Discharge Activity: Resume usual activity Patient Instructions: Opioid Safety, Pain Management Activity Restrictions/Additional Instructions: Thank you for choosing [facility] for your healthcare needs today. It is very important that you follow up as instructed or that you return to the Emergency Department should you have concerns or if your condition changes or worsens in any way. You were seen emergency room after brief episode of chest pain. We had recommended further evaluation you preferred to leave at this time if you have recurrence your symptoms returned anytime we will be happy to further evaluate you. Print Language: Liberian Coding Level of Care Code ED Finish Patcher for Inga Ford
== END 2024-12-03 18:10 | disposition home or self-care (01) ==
PROVIDERS: Emergency Provider Family Medicine; PCP Family Medicine
DX: R07.89 Other chest pain (principal); Z79.84 Long term (current) use of oral hypoglycemic drugs; Z87.891 Personal history of nicotine dependence; E11.9 Type 2 diabetes mellitus without complications; I10 Essential (primary) hypertension
CPT/HCPCS: 71045; 80053; 84484; 85025; 93005; 99285

== ENCOUNTER → 2025-02-01 13:24 | Outpatient (BNVA) | payer MEDICARE, OTHER, SELFPAY | PROVIDERS: PCP Family Medicine; Visit Provider Family Medicine | DX: E11.69 Type 2 diabetes mellitus with other specified complication (principal); R63.4 Abnormal weight loss; R11.0 Nausea; R10.11 Right upper quadrant pain | CPT/HCPCS: 80053; 80061; 83036; 83690; 85025 ==

== ENCOUNTER → 2025-02-09 09:53 | Outpatient (BNVA) | payer OTHER, MEDICAID, SELFPAY | PROVIDERS: PCP Family Medicine; Visit Provider Student in an Organized Health Care Education/Training Program | DX: M79.645 Pain in left finger(s) (principal); M18.11 Unilateral primary osteoarthritis of first carpometacarpal joint, right hand; G56.01 Carpal tunnel syndrome, right upper limb | CPT/HCPCS: 73130; 99213 ==

== ENCOUNTER 2025-02-24 09:47 | Outpatient (CLI) | payer OTHER, MEDICAID, SELFPAY ==
--- NOTE | 2025-02-24 10:00 | MM_ITS ---
WS: [id number] BILATERAL SCREENING DIGITAL TOMOSYNTHESIS MAMMOGRAM WITH CAD HISTORY: screening COMPARISON: 12/20/2023 Bilateral CC and MLO views with tomosynthesis and synthetic mammography submitted. Computer aided detection analyzed. Breast composition: The breasts are almost entirely fatty. No suspicious masses, microcalcifications or architectural distortion. Stable asymmetry measuring 6 x 5 mm in the anterior RIGHT breast just above and lateral to the nipple. Benign calcifications in each breast. MM/MM scr tomosynthesis [id number] IMPRESSION: BI-RADS: 2 - Benign. FOLLOW UP: 1 Year Follow-up
== END 2025-02-24 09:48 | disposition home or self-care (01) ==
LOC: RAD 09:48
PROVIDERS: PCP Family Medicine; Visit Provider Family Medicine
DX: Z12.31 Encounter for screening mammogram for malignant neoplasm of breast (principal); R92.313 Mammographic fatty tissue density, bilateral breasts; R92.1 Mammographic calcification found on diagnostic imaging of breast; N64.89 Other specified disorders of breast
CPT/HCPCS: 77063; 77067

== ENCOUNTER 2025-03-02 10:42 | Outpatient (CLI) | payer OTHER, MEDICAID, SELFPAY ==
--- NOTE | 2025-03-02 11:00 | CT_ITS ---
WS: [id number] CT CHEST, ABDOMEN AND PELVIS WITH AND WITHOUT CONTRAST HISTORY: unexplained 40# weight loss TECHNIQUE: Contiguous 5 mm axial imaging performed through the chest, abdomen and pelvis with and without IV contrast, oral contrast has not been provided. Coronal and sagittal reformats chest. Coronal and sagittal reformats through the abdomen and pelvis. All CT scans at [facility] use at least one of these dose optimization techniques: automated exposure control; mA and/or kV adjustment per patient size (includes targeted exams where dose is matched to clinical indication); or iterative reconstruction. CONTRAST: Omnipaque 350; 100 mL IV. DLP: 1662.18 mGy.cm COMPARISON: CT abdomen and pelvis 07/29/2023, neck CT 08/13/2017. Chest CT: There is a new pulmonary nodule measuring 8.5 mm in the RIGHT upper lobe which was not present in 2018. There are a few smaller satellite lesions adjacent to the nodule in the RIGHT upper lobe. No additional mass or nodule. No pneumonia. Normal size heart. Normal aorta and pulmonary artery size. 11 mm RIGHT suprahilar lymph node. Small lymph nodes RIGHT paratracheal. No supraclavicular adenopathy. Visualized thyroid gland is normal. No pericardial or pleural effusions. Small hiatal hernia. Abdomen CT: Mild hepatic steatosis. 1.2 cm fatty nodule in the central RIGHT lobe of the liver has been present since 2020 with no change. Mild hepatic steatosis. Normal portal vein. Prior cholecystectomy. Long-term stability 8 mm hypodensity in the spleen. There is also a peripherally calcified mass in the superior spleen measuring 2.4 x 1.9 cm which is also stable and probably represents a prior splenic hematoma with calcification. No adrenal mass. Pancreas is normal. No renal obstruction. Minimal atherosclerosis aorta. No ascites or adenopathy. Stomach is distended with fluid. No small bowel obst ruction. Normal appendix. No colitis. Pelvic CT: Uterus is slightly retroverted. No free fluid or adenopathy in the pelvis. No adnexal mass other than small ovaries with follicles. No destructive bone lesions. CT/CT abdpel wo/w [id number] IMPRESSION: 1. New 8.5 mm RIGHT upper lobe pulmonary nodule. There are a few small adjacen t satellite lesions. This may be an early neoplastic lesion or postinflammatory nodule. Indeterminate solid pulmonary nodule measuring 8.5 mm. In a patient of unknown risk level with a solid nodule >8 mm, consider PET/CT or tissue sampling, vs. C T at 3 months. 2. Long-term stability lipomatous mass RIGHT lobe of the liver. No GI tract obstruction. No colitis or mass identified. 3. Prior cholecystectomy. 4. No ascites or adenopathy.
[2025-03-02] MEDS: iohexol 350 mg/mL 500 mL Btl (per mL) IV (11:11)
== END 2025-03-02 10:43 | disposition home or self-care (01) ==
LOC: RAD 10:43
PROVIDERS: PCP Family Medicine; Visit Provider Family Medicine
DX: R63.4 Abnormal weight loss (principal); R10.11 Right upper quadrant pain; R11.0 Nausea
CPT/HCPCS: 71260; 74178

== ENCOUNTER 2025-03-31 11:51 | Emergency (ER) | payer MEDICARE, MEDICAID, SELFPAY ==
[2025-03-31 11:52] VITALS: BP 135/94; PULSE 102; RESP 18; TEMP 36.4; O2SAT 96; BMI 33.9
--- OUTSIDE RECORDS SUMMARY | 2025-03-31 12:23 | XMS_ITS | Clinical Summary ---
Author Organization [facility] Address [address] [address] Phone Care Team Providers Care Solder Technician Name Role Phone Candida Kennedy MD Primary Care Provider Allergies Active Allergy Reactions Criticality Noted Date Comments Celecoxib Other (See Comments) 08/29/2016 Irritates stomach Duloxetine Hallucination Low 08/29/2016 Gabapentin Other (See Comments) 02/13/2018 Tremors Meloxicam Other (See Comments) 08/29/2016 bruise Metoclopramide Hcl Other (See Comments) 018 Pt had Tremors last time she took it. Mirtazapine Palpitations Low 03/02/2019 Nsaids (Non-Steroidal Anti-Inflammatory Drug) Nausea and Vomiting Low 08/29/2016 Medications dapagliflozin (FARXIGA) 10 mg Tablet Take 10 mg by mouth daily. 8 Active linaCLOtide (LINZESS) 145 mcg capsuleIndications:C hronic constipation Take 1 Capsule (145 mcg) by mouth daily before breakfast. 90 Capsule 3 8 Active fenofibrate nanocrystallized (TRICOR) 145 mg tablet Take 145 mg by mouth daily. 8 Active varenicline (CHANTIX) 1 mg Tablet Take 1 mg by mouth 2 times daily. 8 Active traZODone (DESYREL) 150 mg tablet Take 150 mg by mouth daily at bedtime. 8 Active atorvastatin (LIPITOR) 20 mg tablet Take 20 mg by mouth late in the day. 7 Active propranoloL (INDERAL) 40 mg tablet Take 40 mg by mouth 2 times daily. 7 Active Active Problems Problem Noted Date Diagnosed Date Tobacco use 02/13/2018 Social History Tobacco Use Types Packs/Day Years Used Date Smoking Tobacco: Every Day Cigarettes Smokeless Tobacco: Never Alcohol Use Standard Drinks/Week Comments No 0 (1 standard drink = 0.6 oz pur e alcohol) Comments Unknown Sex and Gender Information Value Date Recorded Sex Assigned at Not on file Legal Sex Female 3:44 AM INSOLVENCY PRACTITIONER Gender Identity Not on file Sexual Orientation Not on file Last Filed Vital Signs Vital Sign Reading Time Taken Comments Blood Pressure 132/81 03/02/2019 10:09 AM CDT Pulse 73 03/02/2019 10:09 AM CDT Temperature 36.7 C (98 F) 03/02/2019 10:09 AM CDT Respiratory Rate 16 08/29/2016 11:31 AM CDT Oxygen Saturation - - Inhaled Oxygen Concentration - - Weight 99.4 kg (219 lb 1.6 oz) 03/02/2019 10:09 AM CDT Height 162.6 cm (5' 4 ) 03/02/2019 10:09 AM CDT Body Mass Index 37.61 03/02/2019 10:09 AM CDT Plan of Treatment Health Maintenance Due Date Last Done Comments DTAP/TDAP/TD VACCINES (1 - Tdap) 1994 HEPATITIS B VACCINES (1 of 3 - 19+ 3-dose series) 01/16 HPV/Cotest (21-29) 02/07/1996 CERVICAL CANCER SCREENING 2005 HPV/Cotest (30-65) 2005 PAP SMEAR 2005 BREAST CANCER SCREENING 2015 COLORECTAL SCREENING 02/07/2020 Colorectal Cancer Screening 02/07/2020 FIT-DNA Q 3 years 02/07/2020 FIT/FOBT Q 1 year 02/07/2020 Flex Sig/CT Colonography Q 5 years 02/07/2020 INFLUENZA VACCINE (#1) 2025 ZOSTER VACCINE (1 of 2) 2025 Care Teams Solder Technician Relationship Specialty Start Date End Date Candida Kennedy MD [address] [place] [address] PCP - General Family Practice 01/02/18
--- OUTSIDE RECORDS SUMMARY | 2025-03-31 12:23 | XMS_ITS | Clinical Summary ---
Author Organization [facility] Address [address] [facility] [address] [place] [address] Phone Care Team Providers Care Travel Administrator Name Role Phone Candida Kennedy MD Primary [...] Drug) Nausea and Vomiting Low 08/29/2016 Medications propranolol (INDERAL) 40 mg tablet Take 40 mg by mouth 2 times daily. Active atorvastatin (LIPITOR) 20 mg tablet Take 20 mg by mouth late in the day. Active fenofibrate nanocrystallized (TRICOR) 145 mg tablet Take 145 mg by mouth daily. Active traZODone (DESYREL) 150 mg tablet Take 150 mg by mouth daily at bedtime. Active varenicline (CHANTIX) 1 mg Tablet Take 1 mg by mouth 2 times daily. Active dapagliflozin (FARXIGA) 10 mg TabletIndications:1 tablet in the morning Take 10 mg by mouth daily. Active linaclotide (LINZESS) 145 mcg capsuleIndications:C hronic constipation Take 1 Capsule (145 mcg) by mouth daily before breakfast. 90 Capsule 3 03/05/20 18 Active Additional Information Patient taking differently: 290 mcgOral DAILY BEFORE BREAKFAST, Reported on 03/02/2019 Active Problems Problem Noted Date Diagnosed Date Tobacco use 02/13/2018 Social History Tobacco Use Types Packs/Day Years Used Date Smoking Tobacco: Every Day Cigarettes Smokeless Tobacco: Never Alcohol Use Standard Drinks/Week Comments No 0 (1 standard drink = 0.6 oz pur e alcohol) Comments Unknown Sex and Gender Information Value Date Recorded Sex Assigned at Not on file Legal Sex Female 9:28 AM CDT Gender Identity Not on file Sexual Orientation Not on file Last Filed Vital Signs Vital Sign Reading Time Taken Comments Blood Pressure 132/81 03/02/2019 10:09 AM CDT Pulse 73 03/02/2019 10:09 AM CDT Temperature 36.7 C (98 F) 03/02/2019 10:09 AM CDT Respiratory Rate 16 08/29/2016 11:31 AM CDT Oxygen Saturation 98% 09/26/2017 1:32 PM CDT Inhaled Oxygen Concentration - - Weight 99.4 [...] PAP SMEAR 2005 BREAST CANCER SCREENING 2015 FIT-DNA Q 3 years 02/07/2020 FIT/FOBT Q 1 year 02/07/2020 Flex Sig/CT Colonography Q 5 years 02/07/2020 INFLUENZA VACCINE (#1) 2025 ZOSTER VACCINE (1 of 2) 2025 COLORECTAL SCREENING 11/26/2028 11/26/2018 Colorectal Cancer Screening 11/26/2028 Insurance MEDICARE PART [place] B [place]ICAID [place] MEDICARE [place] A [place] B [place]ICA[place] Care Teams Travel Administrator Relationship Specialty Start Date End Date Candida Kennedy MD [address] [place] [address] PCP - General Family Practice 01/02/18
--- OUTSIDE RECORDS SUMMARY | 2025-03-31 12:23 | XMS_ITS | Data Portability ---
Author Organization [place] Romana Liriano [facility] Blas Casarez [facility] Address [address] [facility] [address] [place] [address] Assessment Encounter Date Assessment Date Assessment LastModified by Organization Details LastModified Time 05/04/2024 05/04/2024 concern for uncontrolled diabetes. pt is not checking glucose at home and I have not records to know her status on this, I recommend pt f/u with pcp on diabetes and urinary issues. counseled on need to monitor glucose. no sign of urinary infection, stone, bleeding today. [email or web address] Not available 05/04/2024 09:42:03 Plan of Treatment Reminders Order Date Submit Date Provider Last Modified By Organization Details Last Modified Time Details Appointments None recorded. Lab urinalysis, dipstick 2023 024 [email or web address] 47 [facility] [address] [place], [address], 4 22:13:05 culture, urine 2023 024 [employer] [facility], [address] [place] [address], [facility] [address] [place], [address], 4 22:34:20 Referral None recorded. Procedures None recorded. Surgeries None recorded. Imaging None recorded. Medication Orders prednisone 20 mg tablet 2024 025 [employer] [facility]/Pharmacy #[id number], [address] [facility], [facility] [address], [place], [address], 5 05:00:55 azithromyci n 250 mg tablet 2024 025 [id number], [address], [facility] [address], [place], [address], 5 12:45:10 cetirizine 10 mg capsule 2024 025 [id number], [address], [facility] [address], [address], 5 19:20:46 prednisone 20 mg tablet 2023 024 [id number], [address], [facility] [address], [place], [address], 5 05:00:55 triamcinolo ne acetonide 0.1 % topical ointment 2023 025 [facility] [place], [facility] [place], [address], 12:33:44 Patient TargetsNo targets recorded. Patient InstructionsNo instructions recorded. Reason for Referral None Reported. Results Created Date Observation Date Name Description Value Unit Range Abnormal Flag Note LastModifiedBy Organization Detail LastModifiedTime 05/04/20 24 05/05/2024 CULTU RE, URINE , ROUTI NE culture, urine, routine SEE NOTE CULTU RE, URINE , ROUTI NE Micro Numbe r: [id number] Test Statu s: Final Speci men Sourc e: Urine Speci men Quali ty: Adequ ate Resul t: Mixed genit al ac isola maryse. These super ficia l bacte em are not indic ative of a urina ry tract infec tion. No furth er organ ism ident ifica tion is warra nted on this speci men. If clini will indic ated, recol lect clean -catc h, mid-s tream urine and trans rudy immed iatel y to Urine Cultu re Trans port Tube. Not Available [facility] [address] [place], [address], 05/05/2024 22:34:19 05/04/2005/04/2024 urina lysis , dipst ick Color Yellow Not Available [facility] ([facility]) [address] [place], [address], 05/04/2024 08:46:10 05/04/20 24 05/04/2024 urina lysis , dipst ick Appearance Clear Not Available [facility] ([facility]) [address] [place], [address], 05/04/2024 08:46:10 05/04/2005/04/2024 urina lysis , dipst ick Glucose 1000 Not Available [facility] ([facility]) [address] [place] [address], [address], 05/04/2024 08:46:10 05/04/20 24 05/04/2024 urina lysis , dipst ick Bilirubin Negati ve Not Available [facility] ([facility]) [address] [place], [address], 05/04/2024 08:46:10 05/04/20 24 05/04/2024 urina lysis , dipst ick Ketone Negati ve Not Available [facility] ([facility]) [address] [place], [address], 05/04/2024 08:46:10 05/04/20 24 05/04/2024 urina lysis , dipst ick Specific [place] 1.010 Not Available [facility] ( [facility]) [address] [place] [address], [address], 05/04/2024 08:46:10 05/04/20 24 05/04/2024 urina lysis , dipst ick Blood Negati ve Not Available [facility] ([facility]) [address] [place], [address], 05/04/2024 08:46:10 05/04/20 24 05/04/2024 urina lysis , dipst ick pH 6.0 Not Available [facility] ([facility]) [address] [place], [address], 05/04/2024 08:46:10 05/04/2005/04/2024 urina lysis , dipst ick Protein Negati ve Not Available [facility] ([facility]) [address] [place], [address], 05/04/2024 08:46:10 05/04/2005/04/2024 urina lysis , dipst ick Urobilinogen .2 Not Available [facility] ([facility]) [address] [place], [address], 05/04/2024 08:46:10 05/04/20 24 05/04/2024 urina lysis , dipst ick Nitrite negati ve Not Available [facility] ([facility]) [address] [place], [address], 05/04/2024 08:46:10 05/04/20 24 05/04/2024 urina lysis , dipst ick Leukocytes Negati ve Not Available [facility] ([facility]) [address] [place], [address], 05/04/2024 08:46:10 Result Notes None recorded. Problems Name Problem SNOMED Code Status Onset Date Resolution Date Notes Provider Name and Address Organization Details Recorded Time Arthritis 1859432 Active 023 [facility] 12:53:01 Problem Notes None recorded. Procedures Surgical History Date Name Laterality Status Provider Name and Address Organization Details Recorded Time Colonoscopy completed [facility] Marcos [facility] 4 09:58:46 esophagogastroduodenoscopy completed [facility], Blas 4 09:58:51 Carpal Tunnel Surgery completed [facility], [place] 4 09:58:56 arthroplasty of hand completed [facility] zamzam [facility], [place] 4 09:59:05 Cholecystectomy completed [facility], Blas 4 09:59:09 complete repair of r otator cuff completed [facility], Blas 4 09:59:16 Imaging Results None recorded. Procedure Notes None recorded. Medical Equipment None Reported. Allergies Allergen ID Allergen Name Allergen Category Reaction Reaction Severity Criticality Documentation Date Start Date Code Code System Note Provider Name and Address Organization Details Recorded Time 12077 Non-stero idal anti-infl ammatory agent (substanc e) medicatio n other Not available Not available 12/03/2023 31598 5008 [facility] 09:56[facility]45 32289 Cymbalta medicatio n other severe high 12/03/2023 40231 4 RxNorm suici jyotsna henriquez [facility], [place] 4 09:57:30 Medications Name Sig Start Date Stop Date Status Note LastModified by Organization Details LastModified Time atorvastati n 20 mg tablet TAKE ONE TABLET BY MOUTH AT BEDTIME active Not Available Not Available No t Available cetirizine 10 mg tablet TAKE 1 TABLET BY MOUTH EVERY DAY IN THE MORNING 2024 active Not Available Not Available Not Avai lable azithromyci n 250 mg tablet TAKE 2 TABLETS (500 MG) BY ORAL ROUTE ONCE DAILY FOR 1 DAY THEN 1 TABLET (250 MG) BY ORAL ROUTE ONCE DAILY FOR 4 DAYS 2024 active Not Available Not Available Not Avai lable prednisone 20 mg tablet Take 1 tablet every day by oral route in the morning for 5 days. 11/14 completed Not Available Not Available Not Available sertraline 100 mg tablet 12/02 completed Not Available Not Available Not Available amlodipine 5 mg tablet TAKE 1 TABLET BY MOUTH EVERY DAY FOR BLOOD PRESSURE active Not Available Not Available No t Available sulfamethox azole 800 mg-trimetho prim 160 mg tablet TAKE 1 TABLET BY MOUTH TWICE DAILY FOR SEVEN DAYS 12/02 completed Not Available Not Available Not Available quetiapine 100 mg tablet 12/02 completed Not Available Not Available Not Available propranolol 40 mg tablet TAKE 1 TABLET BY MOUTH TWO TIMES DAILY active Not Available Not Available No t Available triamcinolo ne acetonide 0.1 % topical ointment APPLY A THIN LAYER TO THE AFFECTED AREA(S) BY TOPICAL ROUTE 2 TIMES PER DAY 11/02 completed Not Available Not Available Not Available mupirocin 2 % topical ointment apply topically THREE TIMES DAILY 12/02 completed Not Available Not Available Not Available diclofenac sodium 50 mg tablet,franklin yed release 12/02 completed Not Available Not Available Not Available sertraline 50 mg tablet 12/02 completed Not Available Not Available Not Available atomoxetine 40 mg capsule take 1 capsule BY MOUTH EVERY MORNING 12/02 completed Not Available Not Available Not Available Prempro 0.3 mg-1.5 mg tablet TAKE 1 TABLET BY MOUTH EVERY DAY active Not Available Not Available No t Available fenofibrate nanocrystal lized 145 mg tablet TAKE ONE TABLET BY MOUTH EVERY DAY active Not Available Not Available No t Available dexlansopra zole 60 mg capsule,bip hase delayed release TAKE ONE CAPSULE BY MOUTH DAILY active Not Available Not Available No t Available cetirizine 10 mg capsule Take 1 capsule every day by oral route in the morning for 30 days. 2024 active Not Available Not Available Not Avai lable Farxiga 10 mg tablet TAKE ONE TABLET BY MOUTH EVERY MORNING active Not Available Not Available No t Available Vitals Date Recorded Body height Body mass index (BMI) Body weight Oxygen saturation Oxygen saturation in Arterial blood by Pulse oximetry Heart rate Respiratory rate Body temperature Systolic And Diastolic Provider Name and Address Organization Details Last Updated DateTime 5 162.56 cm 36.7 kg/m2 13380.7 7 g 94 % 94 % 80 /min 16 /min 98.2 [degF] 144/84 mm[Hg] Haven Martinez [facility]CJulianna 5 12:13:08 Date Recorded Body height Body mass index (BMI) Body weight Oxygen saturation Oxygen saturation in Arterial blood by Pulse oximetry Heart rate Respiratory rate Body temperature Systolic And Diastolic Provider Name and Address Organization Details Last Updated DateTime 4 162.56 cm 39.3 kg/m2 656260. 93 g 98 % 98 % 68 /min 16 /min 97.9 [degF] 154/102 mm[Hg] Jacinta Marcos [facility], LJuliannaLJuliannaCJulianna 4 10:04:18 Date Recorded Body height Body mass index (BMI) Body weight Oxygen saturation Oxygen saturation in Arterial blood by Pulse oximetry Heart rate Respiratory rate Body temperature Systolic And Diastolic Provider Name and Address Organization Details Last Updated DateTime 4 162.56 cm 38.4 kg/m2 483990. 97 g 97 % 97 % 59 /min 17 /min 97.6 [degF] 146/92 mm[Hg] Jacinta Marcos [facility], L.LJuliannaCJulianna 4 11:04:25 Date Recorded Body height Body mass index (BMI) Body weight Heart rate Oxygen saturation Oxygen saturation in Arterial blood by Pulse oximetry Body temperature Systolic And Diastolic Provider Name and Address Organization Details Last Updated DateTime 4 162.56 cm 40.3 kg/m2 474990. 41 g 74 /min 97 % 97 % 98.4 [degF] 140/82 mm[Hg] Valerie Valentin [facility], L.LJuliannaCJulianna 4 08:44:07 Social History Question Answer Notes LastModified by Organizat ion Details LastModified Time Tobacco Smoking Status Never Smoker Jacinta gardner [facility], LJuliannaLJuliannaCJulianna 12/03/2023 09:58:28 What Was The Date Of Your Most Recent Tobacco Screening? 11/02/2024 [email or web address] Information not available 11/02/2024 Sex: Unknown Functional Status Question Answer Note LastModified by Organizat ion Details LastModified Time Do you use any illicit or recreational drugs? Yes Medicinal marijuana program Information not available 12/03/2023 What is your level of alcohol consumption? None Information not available 12/03/2023 Mental Status None recorded. Family History Nothing Reported. Medical History Condition Response Coronary Artery Disease N Other Y Gout N Kidney Stones N Blood Diseases N Hyperthyroidism N Breast Cancer N Blood Transfusion N Hypothyroidism N Depression N COPD N Lung Disease N Defects or Inherited Disease N Developmental or Behavioral Disorders N Breast Problem N Difficulty Swallowing N Anesthesia Complications N Anxiety Disorder Y Meniere's disease N Muscle, Joint, or Bone Problems N Vision or Eye Problems N Arthritis N Polyps N Infertility N Cancer N Varicosities N Stroke N Endometriosis N Bladder or Kidney Problems N High Cholesterol N Liver Disease N Headaches N Fibromyalgia N Kidney Disease N Allergies/Hayfever N Heart Problems Y Ear or Hearing Problems N Hospitalizations N Thyroid Problems N GI Problems N ADD/ADHD N Skin Problems N Eating Disorder N Anemia N Constipation N Mental Illness N Ovarian Cancer N Diabetes Y Bedwetting N Seizures/Epilepsy N Tuberculosis N Eczema N Diverticulitis N Abuse/Domestic Violence N Asthma N Reflux/GERD N Hepatitis N Heart Disease N Pulmonary Embolism N Chronic Ear Infections N Pre-Eclampsia N Hypertension Y Chicken Pox N Autism Spectrum Disorder (ASD) N Osteoporosis N Thrombophilias N Gynecological HistoryNo gynecological history recorded. Obstetrics History GPAL:G 0 P 0 0 0 0 Past Encounters Encounter ID Performer Location Encounter Start Date Encounter Closed Date Diagnosis/Indication Diagnosis SNOMED-CT Code Diagnosis ICD10 Code Diagnosis IMO Codes Diagnosis Note [id number] LAVELL BURNHAM [facility] ([facility]) [address] [place] [address] 12/03/2023 09:51:01 12/03/2023 16:57:42 Atopic dermatitis 35804758 L20.9 Dishydroti c eczema. Discussed use of trimacinol one when the bumps are present. [id number] LAVELL BURNHAM [facility] ([facility]) [address] [place] [address] 03/04/2024 10:56:19 03/04/2024 11:30:42 Right side sciatica 4967350452 99303 M54.31 Discussed to take 400mg ibuprofen twice a day for next 5 days with food.Apply a heating pad for 10 minutes every 2 hours while awake. Perform slow stretches 2 times a day.F/u with PCP in 4-5 days if symptoms persist or worsen. [id number] Ellis Hernandez DO [facility] ([facility]) [address] [place] [address] 05/04/2024 08:23:06 05/04/2024 09:45:56 Dysuria 17415435 R30.0 [id number] Ellis Hernandez DO [facility] ([facility]) [address] [place] [address] 11/02/2024 11:51:21 11/02/2024 13:01:25 Acute laryngitis 1818896 J04.0 2596 severe symptoms with possible allergic component. will start abx, steroids. take zyrtec for at least 2 weeks. Return to office with no improvemen t or any problems. Go to ER with severe worsening or severe problems. Health Concerns Section Related Observation LastModified by Organization Detai ls LastModified Time None Recorded Concern Status LastModified by Organization Details LastModified Time None Recorded Advance Directives Directive None Recorded Payers Insurance Date Sequence Insurance Name Policy Number Policy Huber Covered Member ID Huber Member ID Guarantor Name 11/02/2024 [place] [facility] ([facility]) Maki Staley [id number] Maki Staley 11/02/2024 2 [place] Maki Staley [id number] Maki Staley 11/02/2024 1 [facility] (MEDICARE REPLACEMENT/A DVANTAGE - PPO) Maki Staley [id number] Maki Staley Notes Date Note Type Note Provider Name and Address Organization Details Recorded Time 12/03/2023 text/html General Rash/Ski n LesionReported by PatientHPIFor quality, patient reportsitchy,red, andlocalized. For location, patient reportshands (fingers). For severity, patient reportsmild. For duration, patient reportshas noted for <1 week. For onset/timing, patient reportsgradual onsetandrecurring. For context, patient reportsno new detergents or skin productsandno one else with similar rash. For associated symptoms, patient reportsno cold symptoms.ROS as noted in the HPI Pt reports ongoing rash for a week. Has been putting castor oil on it. Reports it is itchy and has spread from right to left hand. It is intermittent. Reports burning when she submerges her fingers in water. No changes in any items or foods. JACQUELINE PLATTLAVELL [address] [place] [address], [phone], [facility] 12/04/2023 10:08:35 03/04/2024 text/html ROS as noted in the HPI Pt states the pain has been on and off for around 2 months, and is worsening. States she cannot sit for a long period of time. Pain is on patient's right side of her sidney and radiates to her right thigh.. Wants it checked out due to living on the 3rd floor with no elevator. Has taken a couple Tylenol for pain. JACQUELINE PLATT, LAVELL [address] [place], [address], [facility] 03/05/2024 11:30:27 05/04/2024 text/html walk in ptPt has increased frequency for 3 months Mostly at night. and not sleeping well.drinking a lot of fluids during the day. but denies polydipsia. taking melatonin 5mg at night and magnesium.Pt reports she is not able to get good sleep because she is waking up to go pee all the time. Admits to DM2 and gastroparesis., last seen in feb. taking farxiga. PCP is Dr. Motley at [facility] who is not seeing pts right now. Ellis Hernandez, [address] [place], [address], [facility] 05/04/2024 09:42:24 11/02/2024 text/html ROS as noted in the HPI walk in patientpatient is here today for loss of voice that started last night, patient tried to take benadryl but that did not help.voice is strained, painfull swallowing, but no resp distress. no fevers or chills.no CP. some wheezing. no hx of asthma. Ellis Hernandez, [address], [address], [facility], Blas 11/02/2024 12:50:24 OBGyn Episode No OBEpisode recorded.
[2025-03-31 12:28] VITALS: BP 135/94; PULSE 98; O2SAT 96
--- NOTE | 2025-03-31 12:32 | CT_ITS ---
WS: [id number] CT ABDOMEN AND PELVIS WITH CONTRAST HISTORY: llq abd pain, ?diverticulitis TECHNIQUE: Imaging performed of the abdomen and pelvis with IV contrast. Single phase imaging of the abdomen. Coronal and sagittal reformats are submitted. All CT scans at [facility] use at least one of these dose optimization techniques: automated exposure control; mA and/or kV adjustment per patient size (includes targeted exams where dose is matched to clinical indication); or iterative reconstruction. IV CONTRAST: Omnipaque 350; 100 mL IV. Oral contrast: No DLP: 907.73 mGy.cm COMPARISON: 03/02/2025, 07/29/2023 Lower thorax: Lung bases are clear. Heart is normal size. No hiatal hernia. Liver/biliary system: Normal size liver. Reidentified is a well-circumscribed fatty mass in the RIGHT lobe of liver measuring 10 mm. Normal portal vein. Gallbladder: Prior cholecystectomy. Pancreas: Normal size pancreas and pancreatic duct. No adjacent inflammation. Spleen: Normal size spleen. Peripherally calcified mass in the superior pole measures 1.8 x 2.2 cm. This is a long-term stable mass which is probably related to a prior splenic injury with healing. Additional very tiny hypoechoic nodule in the more central spleen measuring about 5 mm is stable also. Adrenal glands: Normal. Right kidney: Normal. Left kidney: Normal. Aorta: Mild atherosclerosis with no aneurysm. Lymphadenopathy: None. Free fluid: None. GI tract: No GI tract obstruction. Normal appendix. No diverticular disease identified. No acute colitis. Abdominal wall: Very tiny fat-containing umbilical hernia. Pelvis: No free fluid or adenopathy within the pelvis. Uterus and ovaries are present and unremarkable. Bones: Unremarkable. CT/CT abdomen pelvis w con* [id number] IMPRESSION: 1. No evidence for acute diverticulitis. 2. Normal appendix. 3. No free fluid or adenopathy. 4. No free air. 5. Stable hepatic lipoma. 6. Stable peripherally calcified splenic cyst.
[2025-03-31 12:40] LABS: Hematocrit 43.8 % (36-47); Hemoglobin 14.90 g/dL (11.27-16.99); Mean Corpuscular HGB Conc 34.0 g/dL (30-55); Mean Corpuscular Hemoglobin 30.5 pg (27-33); Mean Corpuscular Volume 89.8 fl (85-98); Nucleated Red Blood Cells % 0 %; Platelet Count 241 10^3/cmm (157-399); Red Blood Count 4.88 10^6/uL (3.85-5.65); White Blood Count 6.61 10^3/uL (3.29-11.43)
[2025-03-31 12:46] VITALS: BP 135/94; PULSE 96; O2SAT 99
[2025-03-31] MEDS: iohexol 350 mg/mL 500 mL Btl (per mL) IV (12:53)
[2025-03-31 12:54] LABS: Glucose Urine UA 3+ (Normal); Nitrate Urine Negative (Negative)
[2025-03-31 12:56] LABS: Add Urine Microscopic? YES
[2025-03-31 12:56] LABS: Alanine Aminotransferase 12 U/L (0-33); Albumin Level 4.8 g/dL (3.5-5.2); Alkaline Phosphatase 76 U/L (35-105); Anion Gap 18.5 (5-19); Aspartate Amino Transferase 16 U/L (0-32); Blood Urea Nitrogen 10 mg/dL (6-20); Calcium 9.7 mg/dL (8.5-10.5); Carbon Dioxide 23 mmol/L (22-29); Chloride 100 mmol/L (98-107); Creatinine Clr Calc Pharmacy 151.3281; Globulin 2.9 g/dL (1.3-4.6); Glucose 120 mg/dL (65-115); Lipase 51 U/L (13-60); Osmolality Calculated 286 mOsm/kg (285-295); Potassium 3.5 mmol/L (3.5-5.1); Sodium 138 mmol/L (136-145); Total Protein 7.7 g/dL (6.6-8.7)
[2025-03-31 13:18] LABS: Specific Gravity, Urine 1.033 (1.005-1.030)
--- NOTE | 2025-03-31 20:44 | W.ED.ABDPA2 ---
HPI - Abdominal Pain General: Chief Complaint: Abdominal Pain Stated Complaint: abd pain Time Seen by Provider: 03/31/25 12:06 History of Present Illness: 51-year-old female with a history of gastroparesis (diagnosed ~2017) presents with severe lower abdominal pain, worse with bowel movements. Woke with a diaper full of stool after sleeping; later had another bowel movement described as very dark/black. Reports passing a rectal blood clot last week. Pain localizes under abdominal pouch, low and left-sided, described as ?like active childbirth,? 10/10 with bowel movement, 5?6/10 at rest, associated with sweating. Ambulance blood pressure 166/103; patient did not take morning medications. Prior CT abdomen ?not long ago? reportedly found a lung nodule; today?s pain is different from prior episodes. Colonoscopy last year showed benign polyps; has internal and external hemorrhoids but doubts they explain bleeding. Family history notable for GI malignancies. Reports anxiety but is on Buspirone (BuSpar) and Bupropion (Wellbutrin) and feels current anxiety is due to ongoing GI issues. States IBS-C and has been using Ondansetron (Zofran) intermittently and peppermint/nile remedies. GI appointment scheduled Apr 20; seeking evaluation today due to severity. Denies current focal right-sided pain; pain primarily in the left lower quadrant (LLQ) and worsens with defecation. Related Data Home Medications ?Medication ?Instructions ?Recorded ?Confirmed buspirone 15 mg tablet 7.5 mg PO BID 03/09/25 03/31/25 atorvastatin 20 mg tablet 20 mg PO BEDTIME 03/31/25 03/31/25 diclofenac sodium 1 % topical gel 4 g topical QID PRN joint pain 03/31/25 03/31/25 (Voltaren Arthritis Pain) fenofibrate nanocrystallized 145 145 mg PO BEDTIME 03/31/25 03/31/25 mg tablet magnesium 250 mg tablet 500 mg PO DAILY 03/31/25 03/31/25 trazodone 100 mg tablet 50 - 100 mg PO BEDTIME PRN sleep 03/31/25 03/31/25 Previous Rx's ?Medication ?Instructions ?Recorded right CMC brace #1 ea 01/21/24 dexlansoprazole 60 mg 60 mg PO QAM #100 caps 02/10/25 capsule,biphase delayed release (Dexilant) conj estrogen-medroxyprogesterone 1 tab PO QAM #84 tabs 08/07/24 0.3 mg-1.5 mg tablet (Prempro) ondansetron 4 mg disintegrating 4 mg PO Q8H PRN nausea and 01/18/25 tablet vomiting #20 tabs dapagliflozin propanediol 10 mg 10 mg PO QAM #100 tabs 01/25/25 tablet (Farxiga) albuterol sulfate 90 mcg/actuation 2 puff inhalation QID PRN 02/01/25 aerosol inhaler (Ventolin HFA) shortness of breath or wheezing #8.5 grams blood sugar diagnostic (Blood #50 ea 02/01/25 Glucose Test strips) blood-glucose meter (Blood Glucose #1 ea 02/01/25 Monitoring kit) bupropion HCl 150 mg 24 hr tablet, 150 mg PO QAM #30 tabs 02/04/25 extended release propranolol 40 mg tablet 40 mg PO BID #180 tabs 03/28/25 Allergies Allergy/AdvReac Type Severity Reaction Status Date / Time gabapentin (From Neurontin) Allergy Severe Temors Verified 03/09/25 08:52 metoclopramide (From Reglan) Allergy Intermediate ADR/ALGY-Pa Verified 03/09/25 08:52 lpitations mirtazapine (From Remeron) Allergy Intermediate ADR/ALGY-Pa Verified 03/09/25 08:52 lpitations duloxetine (From Cymbalta) Allergy vomit Verified 03/09/25 08:52 diclofenac (From Voltaren) AdvReac Intermediate Stomach Verified 03/09/25 08:52 problems. lamotrigine AdvReac Unknown ALGY-Redness Verified 03/09/25 08:52 of Skin meloxicam (From Mobic) AdvReac ADR-Gastrointestinal Verified 03/09/25 08:52 Upset PFS ED PFSH: Medical History (Updated 03/31/25 @ 14:18 by Santos Haskins DO) Right upper lobe pulmonary nodule 8mm on CT 9.16.25 KIMI (generalized anxiety disorder) Per [facility] Behavior Assessment Report from 01/07/2025: Client has been diagnosed with Generalized Anxiety Disorder, in that, she has been experiencing excessive anxiety and worry occurring more days than not, for at least 6 months, and about a number of events or activities related to daily tasks and performance. The Client? has been having difficulty controlling worry, worrying about too many things at the same time, with symptoms of being restless or keyed up, being easily fatigued, difficulty concentrating, irritability, muscle tension, and significant sleep disturbances. These symptoms have caused significant distress and interfering with social, occupational, and other important areas of functioning. Weight loss, non-intentional Nausea Psychiatric care Anxiety disorder with panic attacks On hormone replacement therapy on prempro Nicotine dependence, cigarettes, in remission Rectal incontinence checking MRI lumbar 1.6.25 but may be due to overflow Chronic low back pain with right-sided sciatica Abdominal pain, chronic, bilateral lower quadrant Psychosocial stressors Osteoarthritis of carpometacarpal (CMC) joint of right thumb Major depressive disorder, recurrent, in partial remission Cubital tunnel syndrome on right Arthritis of carpometacarpal (CMC) joint of left thumb Chronic constipation Obesity (BMI 30.0-34.9) Osteoarthritis involving joints of both upper arms Neck pain on right side Benign essential HTN Diabetic gastroparesis per her report has seen GI specialists at [facility]--was told she was too far gone to do anything; not a candidate for the stimulator; linzess causes cramping; using magnesium Insomnia Depression with anxiety PTSD (post-traumatic stress disorder) ADHD Hyperlipidemia GERD (gastroesophageal reflux disease) Elevated triglycerides with high cholesterol Type 2 diabetes mellitus, without long-term current use of insulin Surgical History History of esophagogastroduodenoscopy (EGD) Dr Mooney, repeat EGD 11/21/2023 Dr. Saucedo bx negative Hx of colonoscopy with polypectomy 2017 Dr Mansfield, repeat colonoscopy 11/21/2023 Lewis with multiple benign polyps History of bilateral carpal tunnel release Left CTS 09/11/2022 and right CTS 11/21/[address] Marrero H/O tubal ligation H/O arthroscopic knee surgery bilateral H/O rotator cuff surgery left x2 History of cholecystectomy Family History Family/Other Heart disease paternal uncle One uncle at age 36 and one 54 (previous bypass) Grandfather Heart disease paternal, triple bypass and valve replaced Father No problems noted. Other Cancer Diabetes Social History Smoking and tobacco/nicotine status: former use of tobacco/nicotine Quit status (tobacco/nicotine): has quit using Year quit tobacco: 2019 Alcohol intake: never Substance/Drug Use: current Substance/Drug use frequency: daily Household members: none Marital status: Single Number of children: 3 Highest education level completed: Some College, No Degree Current occupational status: disabled Previous occupational history: disabled for mental illness and gastroparesis Physical Exam Const: COMMON NORMALS: patient oriented x3 and alert HENMT: COMMON NORMALS: normocephalic and atraumatic HEAD & SCALP: normocephalic and atraumatic Eye: COMMON NORMALS: Equal, round and reactive pupils present, EOMs intact bilaterally and no scleral icterus PUPIL: Yes Equal, round and reactive pupils present Resp: COMMON NORMALS: normal respiratory effort and No retractions Cardio: COMMON NORMALS: regular rate, regular rhythm and No murmurs present (Cardio) RATE: regular rate RHYTHM: regular rhythm GI: COMMON NORMALS: Normal to inspection, nondistended, normoactive bowel sounds present and Soft to palpation PALPATION: Yes Soft to palpation OTHER: Mild left lower quadrant tenderness Neuro: COMMON NORMALS: patient oriented x3 SENSORIUM/ORIENTATION: Yes alert Psych: OTHER: Anxious, tearful, no delusions or hallucinations Skin: COMMON NORMALS: no rashes or lesions noted GENERAL SKIN EXAM: no rashes or lesions noted Course Vital Signs: Vital signs: Vital Signs Temperature 97.6 F 03/31/25 11:52 Pulse Rate 96 03/31/25 12:46 Respiratory Rate 18 03/31/25 11:52 Blood Pressure 135/94 03/31/25 12:46 Pulse Oximetry 99 03/31/25 12:46 Oxygen Delivery Me thod Room Air 03/31/25 12:28 MDM - Abdominal Pain Medical Decision Making 51-year-old female with history of gastroparesis presents with severe LLQ abdominal pain, worse with defecation, dark/black stools, and a recent rectal blood clot. Prior colonoscopy last year showed benign polyps; hemorrhoids present. Pain today differs from a prior episode when CT found a lung nodule. Blood pressure in ambulance elevated. Physical exam: very anxious, LLQ tenderness, normal bowel sounds. Differential diagnosis (DDx) discussed includes diverticulitis, suggested given LLQ pain location. Gastroparesis acknowledged but staging/assessment uncertain per provider. No further DDx comments provided. CT abdomen planned; blood tests to be obtained. Plan to review radiology read and labs, then reassess and discuss results with the patient. All labs and images reviewed by me personally. Laboratory evaluation shows nothing acute. CT scan also shows nothing acute. Left lower quadrant Geoffrey pain is resolved spontaneously. We had a gely discussion about how anxiety can manifest as abdominal pain and I feel there is a strong component of anxiety contributing to her symptomatology today. She was given clonazepam which helped even further. She will be discharged in stable condition with follow-up to primary care and GI nonemergently Lab Data 03/31/25 12:00 03/31/25 12:00 Labs/Radiology: Radiology Impressions Abdomen/Pelvis CT 03/31/25 12:32 IMPRESSION: 1. No evidence for acute diverticulitis. 2. Normal appendix. 3. No free fluid or adenopathy. 4. No free air. 5. Stable hepatic lipoma. 6. Stable peripherally calcified splenic cyst. Laboratory Results WBC 6.61 10^3/uL (3.29-11.43) 03/31/25 12:00 RBC 4.88 10^6/uL (3.85-5.65) 03/31/25 12:00 Hgb 14.90 g/dL (11.27-16.99) 03/31/25 12:00 Hct 43.8 % (36-47) 03/31/25 12:00 MCV 89.8 fl (85-98) 03/31/25 12:00 MCH 30.5 pg (27-33) 03/31/25 12:00 MCHC 34.0 g/dL (30-55) 03/31/25 12:00 RDW 12.9 % (12.1-15.1) 03/31/25 12:00 Plt Count 241 10^3/cmm (157-399) 03/31/25 12:00 MPV 10.7 fL (7.4-10.4) H 03/31/25 12:00 Neut % (Auto) 71.8 % 03/31/25 12:00 Lymph % (Auto) 20.4 % 03/31/25 12:00 [place] % (Auto) 5.6 % 03/31/25 12:00 Eos % (Auto) 1.4 % 03/31/25 12:00 Baso % (Auto) 0.6 % 03/31/25 12:00 Neut # (Auto) 4.75 10^3/uL (1.8-7.7) 03/31/25 12:00 Lymph # (Auto) 1.4 10^3/uL (0.8-4.8) 03/31/25 12:00 [place] # (Auto) 0.4 10^3/uL (0.2-0.9) 03/31/25 12:00 Eos # (Auto) 0.1 10^3/uL (0.0-0.8) 03/31/25 12:00 Baso # (Auto) 0.0 10^3/uL (0.0-0.1) 03/31/25 12:00 Nucleated RBC % (auto) 0 % 03/31/25 12:00 Nucleated RBCs # 0.0 /100WBC 03/31/25 12:00 Sodium 138 mmol/L (136-145) 03/31/25 12:00 Potassium 3.5 mmol/L (3.5-5.1) 03/31/25 12:00 Chloride 100 mmol/L (98-107) 03/31/25 12:00 Carbon Dioxide 23 mmol/L (22-29) 03/31/25 12:00 Anion Gap 18.5 (5-19) 03/31/25 12:00 BUN 10 mg/dL (6-20) 03/31/25 12:00 Creatinine 0.5 mg/dL (0.5-0.9) 03/31/25 12:00 GFR Calculation 130.6 mL/min (90-130) H 03/31/25 12:00 Glucose 120 mg/dL (65-115) H 03/31/25 12:00 Calculated Osmolality 286 mOsm/kg (285-295) 03/31/25 12:00 Calcium 9.7 mg/dL (8.5-10.5) 03/31/25 12:00 Total Bilirubin 0.5 mg/dL (0.15-1.2) 03/31/25 12:00 AST 16 U/L (0-32) 03/31/25 12:00 ALT 12 U/L (0-33) 03/31/25 12:00 Alkaline Phosphatase 76 U/L (35-105) 03/31/25 12:00 Total Protein 7.7 g/dL (6.6-8.7) 03/31/25 12:00 Albumin 4.8 g/dL (3.5-5.2) 03/31/25 12:00 Globulin 2.9 g/dL (1.3-4.6) 03/31/25 12:00 Lipase 51 U/L (13-60) 03/31/25 12:00 Urine Color Yellow (Yellow) 03/31/25 12:40 Urine Appearance Cloudy (CLEAR) A 03/31/25 12:40 Urine pH 7.5 (5-7) 03/31/25 12:40 Ur Specific [place] 1.033 (1.005-1.030) H 03/31/25 12:40 Urine Protein Negative (Negative) 03/31/25 12:40 Urine Glucose (UA) 3+ (Normal) H 03/31/25 12:40 Urine Ketones Trace (Negative) 03/31/25 12:40 Urine Blood Negative (Negative) 03/31/25 12:40 Urine Nitrate Negative (Negative) 03/31/25 12:40 Urine Bilirubin Negative (Negative) 03/31/25 12:40 Urine Urobilinogen 1.0 mg/dL (Negative) 03/31/25 12:40 Ur Leukocyte Esterase Negative (Negative) 03/31/25 12:40 Urine RBC 6-10 /hpf (0-2) 03/31/25 12:40 Urine WBC 0-5 /hpf (0-5) 03/31/25 12:40 Ur Squamous Epith Cells 0-5 /hpf (0-5) 03/31/25 12:40 Amorphous Sediment Not Reportable 03/31/25 12:40 Urine Bacteria 1+ /hpf (NONE) H 03/31/25 12:40 Hyaline Casts 0-4 /lpf H 03/31/25 12:40 All radiology interpretation(s) finalized by discharge Discharge Plan Discharge Patient Disposition: Home Clinical Impression: Abdominal pain, LLQ Condition: Stable Prescriptions: No Action (DME) right CMC brace See Rx Instructions .Route .MEDSUPPLY Qty: 1 0RF Rx Instructions: As directed albuterol sulfate [Ventolin HFA] 90 mcg/actuation HFA aerosol inhaler 2 puff inhalation QID PRN (Reason: shortness of breath or wheezing) Qty: 8.5 0RF (DME) Blood Glucose Test Strip See Rx Instructions .Route Qty: 50 3RF Rx Instructions: As directed (DME) blood-glucose meter [Blood Glucose Monitoring] Kit See Rx Instructions .Route Qty: 1 0RF Rx Instructions: As directed ondansetron 4 mg tablet,disintegrating 4 mg PO Q8H PRN (Reason: nausea and vomiting) Qty: 20 0RF bupropion HCl 150 mg tablet extended release 24 hr 150 mg PO QAM Qty: 30 1RF buspirone 15 mg tablet 7.5 mg PO BID dexlansoprazole [Dexilant] 60 mg capsule,biphase delayed releas 60 mg PO QAM Qty: 100 2RF Prempro 0.3-1.5 mg tablet 1 tab PO QAM Qty: 84 3RF Farxiga 10 mg tablet 10 mg PO QAM Qty: 100 1RF propranolol 40 mg tablet 40 mg PO BID Qty: 180 0RF magnesium 250 mg Tablet 500 mg PO DAILY atorvastatin 20 mg tablet 20 mg PO BEDTIME trazodone 100 mg tablet 50 - 100 mg PO BEDTIME PRN (Reason: sleep) fenofibrate nanocrystallized 145 mg tablet 145 mg PO BEDTIME diclofenac sodium [Voltaren Arthritis Pain] 1 % gel 4 g topical QID PRN (Reason: joint pain) Rx Instructions: apply to single knee, ankle, foot; for foot includes sole/toes/top of foot Discharge Orders: Discharge ED (Routine); Ordered 03/31/25 Ordered By: Santos Haskins Referrals: Georgie Koroma MD [Primary Care Provider, Family Practice] Patient Instructions: Abdominal Pain (ED), Patient Portal & Emmy Instructions Print Language: Guamanian Coding Level of Care Code ED Document Review Specialist for Inga Ford
== END 2025-03-31 14:26 | disposition home or self-care (01) ==
PROVIDERS: Emergency Provider Student in an Organized Health Care Education/Training Program; PCP Family Medicine
DX: R10.32 Left lower quadrant pain (principal); Z87.891 Personal history of nicotine dependence; E11.9 Type 2 diabetes mellitus without complications; E78.5 Hyperlipidemia, unspecified; I10 Essential (primary) hypertension
CPT/HCPCS: 36415; 74177; 80053; 81001; 83690; 85025; 99285; J9999

== ENCOUNTER → 2025-04-01 08:12 | Outpatient (BNVA) | payer MEDICARE, MEDICAID, SELFPAY | PROVIDERS: PCP Family Medicine; Referring Provider Family Medicine; Visit Provider Internal Medicine | DX: R91.1 Solitary pulmonary nodule (principal); F41.0 Panic disorder [episodic paroxysmal anxiety]; K31.84 Gastroparesis; Z87.891 Personal history of nicotine dependence | CPT/HCPCS: 99204; Q3014 ==

== ENCOUNTER → 2025-04-08 09:23 | Outpatient (BNVA) | payer MEDICARE, MEDICAID, OTHER, SELFPAY | PROVIDERS: PCP Family Medicine; Visit Provider Nurse Practitioner Psychiatric/Mental Health | DX: Z03.89 Encounter for observation for other suspected diseases and conditions ruled out (principal) | CPT/HCPCS: 80306 ==

== ENCOUNTER → 2025-04-21 09:58 | Outpatient (BNVA) | payer OTHER, SELFPAY | PROVIDERS: PCP Family Medicine; Visit Provider Family Medicine | DX: R10.11 Right upper quadrant pain (principal); R63.4 Abnormal weight loss; R11.0 Nausea | CPT/HCPCS: 80053; 82150; 82784; 83516; 83550; 83690; 83735; 85025; 86003; 86008 ==

== ENCOUNTER 2025-05-03 09:26 | Outpatient (CLI) | payer MEDICARE, MEDICAID, SELFPAY ==
--- NOTE | 2025-05-03 09:30 | XR_ITS ---
WS: [id number] XR cervical spine 3V* [id number] REASON FOR EXAM: chronic neck pain FINDINGS: Slight reversal of the normal lordosis of the cervical spine. Mild levoscoliosis. No significant vertebral body compression deformity or focal vertebral body lesion. Normal odontoid. Mild disc space narrowing with mild posterior and anterior osteophytosis at C3-C4. Mild to moderate narrowing of the C5-C6 disc space with mild anterior and posterior osteophytosis. Mild facet joint degenerative arthropathy C2-C7. No significant listhesis. XR/XR cervical spine 3V* [id number] IMPRESSION: Abnormal cervical spine curvatures as above. Multilevel degenerative spondylosis as above.
--- NOTE | 2025-05-03 09:45 | CT_ITS ---
WS: [id number] CT CHEST TECHNIQUE: Noncontrast CT of the chest with coronal and sagittal reformatted images. CLINICAL INFORMATION: follow up COMPARISON: 03/02/2025 DLP: 539.[address] scans at [facility] use at least one of these dose optimization techniques: automated exposure control; mA and/or kV adjustment per patient size (includes targeted exams where dose is matched to clinical indication); or iterative reconstruction. FINDINGS: Solid irregular RIGHT upper lobe pulmonary nodule measures 11 to 12 mm in maximum dimension 1 to 2 mm larger compared to previous. Recommend further evaluation with PET/CT. Neoplasm not excluded. Surrounding tiny satellite nodularity may be inflammatory. No mediastinal or hilar lymphadenopathy. Normal caliber thoracic aorta. No axillary lymphadenopathy. Small esophageal hiatal hernia. Stable calcified splenic cyst. Stable fatty lesion RIGHT hepatic lobe. Prior cholecystectomy. CT/CT chest wo con [id number] IMPRESSION: 1. RIGHT upper lobe pulmonary nodule measures 11 to 12 mm in maximum dimension 1 to 2 mm larger compared to previous. Surrounding satellite nodularity. This remains indeterminate and neoplasm not excluded. Recommend further evaluation w ith PET/CT. 2. No other interval changes. 3. No mediastinal or hilar lymphadenopathy. 4. Small esophageal hiatal hernia. 5. Prior cholecystectomy. 6. Stable small lipoma in the RIGHT hepatic lobe.
== END 2025-05-03 09:27 | disposition home or self-care (01) ==
PROVIDERS: PCP Family Medicine; Visit Provider Internal Medicine
DX: R91.1 Solitary pulmonary nodule (principal); G89.29 Other chronic pain; R91.8 Other nonspecific abnormal finding of lung field; K44.9 Diaphragmatic hernia without obstruction or gangrene; Z90.49 Acquired absence of other specified parts of digestive tract; D17.79 Benign lipomatous neoplasm of other sites; D73.4 Cyst of spleen; K76.89 Other specified diseases of liver; M41.82 Other forms of scoliosis, cervical region; M25.78 Osteophyte, vertebrae; M47.892 Other spondylosis, cervical region; M50.31 Other cervical disc degeneration, high cervical region; M50.322 Other cervical disc degeneration at C5-C6 level
CPT/HCPCS: 71250; 72040

== ENCOUNTER → 2025-05-07 08:25 | Outpatient (BNVA) | payer MEDICARE, MEDICAID, SELFPAY | PROVIDERS: PCP Family Medicine; Visit Provider Internal Medicine | DX: R91.1 Solitary pulmonary nodule (principal); K31.84 Gastroparesis; F41.0 Panic disorder [episodic paroxysmal anxiety]; Z87.891 Personal history of nicotine dependence; R91.8 Other nonspecific abnormal finding of lung field | CPT/HCPCS: 99214; Q3014 ==

== ENCOUNTER 2025-05-21 14:21 | Outpatient (CLI) | payer MEDICARE, MEDICAID, OTHER, SELFPAY ==
--- NOTE | 2025-05-21 14:30 | PETR_ITS ---
PROCEDURE INFORMATION: Exam: PET/CT Skull Base to Mid-thigh Exam date and time: 05/21/2025 3:20 PM Age: 50 years old Clinical indication: Abnormal findings; Right upper lobe pulmonary nodule measures 11 to 12 mm in maximum dimension 1 to 2 mm larger. Compared to previous; Prior surgery; Surgery date: 6+ months; Surgery type: Gb; Additional info: Right upper lobe lung nodule suspicious for cancer LABS AND CLINICAL REPORTS: Glucose: 148 mg/dl Treatment strategy for malignancy (PET staging): Initial Staging (PI) TECHNIQUE: Imaging protocol: Following at least four-hour fasting and following the injection of radiopharmaceutical, low dose CT images were obtained. Then, PET images were obtained. Attenuation corrected images were constructed using the CT scan. Fused images of PET and CT were reviewed. The standardized uptake values (SUV) reported below are maximum values within a region of interest, expressed in gm/ml. Exam includes orbital meatal line to mid-thigh. SUV normalization method: BodyWeight Radiopharmaceutical: 11.31 mCi F-18 FDG (Fluorodeoxyglucose), IV. Time of imaging post radiopharmaceutical administration: 45 minutes Injection site: right ac COMPARISON: CT chest wo con [id number] 05/03/2025 9:40 AM FINDINGS: Brain: Visualized brain has normal physiologic uptake. Pharynx: No abnormal uptake. Larynx: No abnormal uptake. Lungs, pleura and trachea: Anterior right upper lobe 11 mm nodule demonstrates no significant FDG uptake. Heart: Normal physiologic uptake. Mediastinal space: No abnormal uptake. Liver: No abnormal uptake. Incidentally noted 1.4 cm right hepatic lobe lipoma. Gallbladder and biliary ducts: No abnormal uptake. Status post cholecystectomy. Pancreas: No abnormal uptake. Spleen: No abnormal uptake. Adrenal glands: No abnormal uptake. Kidneys and ureters: Normal physiologic uptake. Stomach and bowel: No abnormal uptake. Vasculature: No abnormal uptake. Lymph nodes: No abnormal uptake. No lymphadenopathy in the head, neck, chest, abdomen, pelvis, and extremities. Skeleton: No abnormal uptake in the visualized axial and appendicular skeleton. Soft tissues: No abnormal uptake in the visualized head, neck, chest, abdomen, pelvis, and extremities. Nonspecific increased uptake in the peroneal region without a discrete focal abnormality on CT, likely due to urinary artifact/contamination. METRICS: Mediastinal blood pool: Mean SUV of 1.9 Liver uptake: Mean SUV of 2.7 PET/PET skull to thigh INIT [id number] IMPRESSION: 1. Anterior right upper lobe 11 mm nodule demonstrates no significant FDG uptake. Consider chest CT follow-up in 3-6 months, then 12 months to demonstrate continued stability. 2. Incidentally noted 1.4 cm right hepatic lobe lipoma.
== END 2025-05-21 14:22 | disposition home or self-care (01) ==
LOC: RAD 14:21
PROVIDERS: PCP Family Medicine; Visit Provider Internal Medicine
DX: R91.8 Other nonspecific abnormal finding of lung field (principal)
CPT/HCPCS: 78815; A9552

== ENCOUNTER 2025-06-02 05:39 | Day surgery (SDC) | payer MEDICARE, MEDICAID, SELFPAY ==
--- NOTE | 2025-06-01 10:45 | ANES.PREANE2 ---
Pre-Anesthetic Assessment Height/Weight: Height 5 ft 5 in Preop Diagnosis: Lung opacity Operation Date: 06/02/25 08:40 Proposed Procedures p Robotic Assisted Bronchoscopy - Robotic Bronch with EBUS-(Not Applicable) - Angella Valle MD s Ebus Endobronchial Ultrasound (EBUS)(Not Applicable) - MD daiana Valentino Bronchoscopy(Not Applicable) - Angella Valle MD Was Beta Donald taken within 24 hours: Yes Was Clonidine taken within 24 hours: N/A Social Tobacco and No alcohol Exam alert, oriented x 3, clear to auscultation bilaterally and regular rate & rhythm Airway Submandibular: Other (Large neck circumference) Cervical ROM: within normal limits Mallampati: Class III Dentition: full Comments: Comments: Missing multiple teeth, denies any loose Anesthetic Plan ASA status: 4 Anesthesia: General Other: No prior issues with anesthesia NPO since yesterday evening Patient is super nervous this morning Patient has an 8.5 mm lung nodule in the right upper lobe with enlarged lymph nodes History of hypertension on propranolol. Taken this morning KIMI with depression Current smoker GERD Type II DM, BS 184 Diabetic gastroparesis noted Labs reviewed 04/21/2025 and acceptable for procedure EKG sinus rhythm with incomplete RBBB Plan for GETA with RSI due to gastroparesis Medications/Allergies Home Medications ?Medication ?Instructions ?Recorded ?Confirmed ?Last Taken ?Type right CMC brace #1 ea 01/21/24 05/07/25 Unknown Rx albuterol sulfate 90 mcg/actuation 2 puff inhalation QID PRN 02/01/25 06/01/25 Unknown Rx aerosol inhaler (Ventolin HFA) shortness of breath or wheezing #8.5 grams blood sugar diagnostic (Blood #50 ea 02/01/25 05/07/25 Unknown Rx Glucose Test strips) blood-glucose meter (Blood Glucose #1 ea 02/01/25 05/07/25 Unknown Rx Monitoring kit) diclofenac sodium 1 % topical gel 4 g topical QID PRN joint pain 03/31/25 06/01/25 06/01/25 History (Voltaren Arthritis Pain) atorvastatin 20 mg tablet 20 mg PO BEDTIME #90 tabs 04/21/25 06/01/25 06/01/25 Rx dapagliflozin propanediol 10 mg 10 mg PO QAM #100 tabs 1106/01/25 06/01/25 Rx tablet (Farxiga) dexlansoprazole 60 mg 60 mg PO QAM #100 caps 04/21/25 06/01/25 06/01/25 Rx capsule,biphase delayed release (Dexilant) fenofibrate nanocrystallized 145 145 mg PO BEDTIME #90 tabs 04/21/25 06/01/25 06/01/25 Rx mg tablet propranolol 40 mg tablet 40 mg PO BID #180 tabs 04/21/25 06/01/25 06/02/25 04:30 Rx varicella-zoster glycoE vacc-AS01B 50 mcg IM ONCE #1 ea 04/21/25 06/01/25 Unknown Rx adj(PF) 50 mcg/0.5 mL IM susp, kit (Shingrix (PF)) bupropion HCl 150 mg 24 hr tablet, 150 mg PO QAM #30 tabs 05/27/25 06/01/25 06/01/25 Rx extended release olanzapine 5 mg disintegrating 5 mg PO BID PRN agitation #30 tabs 05/27/25 06/01/25 06/01/25 Rx tablet trazodone 100 mg tablet See Rx Instructions PO .q hs PRN 05/27/25 06/01/25 06/01/25 Rx sleep #60 tabs buspirone 15 mg tablet 22.5 mg PO BID 06/01/25 06/01/25 06/01/25 History conj estrogen-medroxyprogesterone 1 tab PO QAM #84 tabs 06/01/25 06/01/25 06/01/25 Rx 0.3 mg-1.5 mg tablet (Prempro) magnesium citrate 100 mg capsule 300 mg PO DAILY 06/01/25 06/01/25 06/01/25 History magnesium oxide 500 mg PO DAILY 06/01/25 06/01/25 06/01/25 History Allergies Allergy/AdvReac Type Severity Reaction Status Date / Time gabapentin (From Neurontin) Allergy Severe Temors Verified 06/02/25 05:59 metoclopramide (From Reglan) Allergy Intermediate ADR/ALGY-Pa Verified 06/02/25 05:59 lpitations mirtazapine (From Remeron) Allergy Intermediate ADR/ALGY-Pa Verified 06/02/25 05:59 lpitations duloxetine (From Cymbalta) Allergy vomit Verified 06/02/25 05:59 diclofenac (From Voltaren) AdvReac Intermediate Stomach Verified 06/02/25 05:59 problems. lamotrigine AdvReac Unknown ALGY-Redness Verified 06/02/25 05:59 of Skin meloxicam (From Mobic) AdvReac ADR-Gastrointestinal Verified 06/02/25 05:59 Upset [facility] Anesthesia Medical History Umbilical hernia Right upper lobe pulmonary nodule 8mm on CT 9.16.25 KIMI (generalized anxiety disorder) Per [facility] Behavior Assessment Report from 01/07/2025: Client has been diagnosed with Generalized Anxiety Disorder, in that, she has been experiencing excessive anxiety and worry occurring more days than not, for at least 6 months, and about a number of events or activities related to daily tasks and performance. The Client? has been having difficulty controlling worry, worrying about too many things at the same time, with symptoms of being restless or keyed up, being easily fatigued, difficulty concentrating, irritability, muscle tension, and significant sleep disturbances. These symptoms have caused significant distress and interfering with social, occupational, and other important areas of functioning. Weight loss, non-intentional Nausea Psychiatric care Anxiety disorder with panic attacks On hormone replacement therapy on prempro Nicotine dependence, cigarettes, in remission Rectal incontinence checking MRI lumbar 1.6.25 but may be due to overflow Chronic low back pain with right-sided sciatica Abdominal pain, chronic, bilateral lower quadrant Psychosocial stressors Osteoarthritis of carpometacarpal (CMC) joint of right thumb Major depressive disorder, recurrent, in partial remission Cubital tunnel syndrome on right Arthritis of carpometacarpal (CMC) joint of left thumb Chronic constipation Obesity (BMI 30.0-34.9) Osteoarthritis involving joints of both upper arms Neck pain on right side Benign essential HTN Diabetic gastroparesis per her report has seen GI specialists at [facility]--was told she was too far gone to do anything; not a candidate for the stimulator; linzess causes cramping; using magnesium Insomnia Depression with anxiety PTSD (post-traumatic stress disorder) ADHD Hyperlipidemia GERD (gastroesophageal reflux disease) Elevated triglycerides with high cholesterol Type 2 diabetes mellitus, without long-term current use of insulin Surgical History History of repair of left rotator cuff History of bilateral tubal ligation History of esophagogastroduodenoscopy (EGD) Dr Mooney, repeat EGD 11/21/2023 Dr. Saucedo bx negative Hx of colonoscopy with polypectomy 2017 Dr Mansfield, repeat colonoscopy 11/21/2023 Lewis with multiple benign polyps History of bilateral carpal tunnel release Left CTS 09/11/2022 and right CTS 11/21/[address] Marrero H/O arthroscopic knee surgery bilateral History of cholecystectomy Family History Grandfather Heart disease paternal, triple bypass and valve replaced Father Diabetes Heart disease Mother Depression Grandmother Stomach cancer Other Cancer Social History Smoking and tobacco/nicotine status: former use of tobacco/nicotine Quit status (tobacco/nicotine): has quit using Year quit tobacco: 2019 Former quit date comment: 30 pack year history Alcohol intake: never Substance/Drug Use: current Substance/Drug use frequency: daily Household members: none Marital status: Single Number of children: 3 Number of grandchildren: 2 Highest education level completed: Some College, No Degree Current occupational status: disabled Previous occupational history: disabled for mental illness and gastroparesis Leisure activites: reading and other Leisure activities details: video games Special jhony needs: No Agree to transfusion: Yes Data Anesthesia 06/02/25 06:28
[2025-06-02] VITALS (10 sets, daily range): BP systolic 99–138; BP diastolic 62–105; PULSE 71–83; RESP 13–26; TEMP 36.1–36.6; O2SAT 92–98; BMI 33.5
--- NOTE | 2025-06-02 06:29 | SC_ITS ---
WS: [id number] C ARM fluoroscopy for bronchoscopy, 06/02/2025 Clinical Data: ION IN OR3 Comparison: CT chest, 05/03/2025 Findings: Dr. Valle performed right upper lobe bronchoscopy and biopsy. SC/C-arm FL for Bronchoscopy Impression: Right upper lobe bronchoscopy and biopsy.
[2025-06-02 06:38] LABS: Hematocrit 45.3 % (36-47); Hemoglobin 15.50 g/dL (11.27-16.99); Mean Corpuscular HGB Conc 34.2 g/dL (30-55); Mean Corpuscular Hemoglobin 30.7 pg (27-33); Mean Corpuscular Volume 89.7 fl (85-98); Nucleated Red Blood Cells % 0 %; Platelet Count 232 10^3/cmm (157-399); Red Blood Count 5.05 10^6/uL (3.85-5.65); White Blood Count 5.96 10^3/uL (3.29-11.43)
--- NOTE | 2025-06-02 06:41 | PM.HP ---
Providers/Chief Complaint Primary Care Provider: Marie Manriquez MD Chief Complaint: R91.1 History of Present Illness This is a 50-year-old female with past medical history of asthma, gastroparesis, multiple GI issues here to be evaluated for her recently found lung nodule referred by Dr. Georgie Koroma Patient is here to discuss results of her CT scan showing a 8.5 mm lung nodule in the right upper lobe along with mildly enlarged lymph nodes. She has had some unintentional weight loss issues as well that led to workup revealing the lung nodule. She describes her cough to be controlled, denies having any issues with increased cough or shortness of breath related to her asthma. Seems to be very well-controlled she says. PET scan done and decision made to undergo robotic navigational bronchoscopy Medications/Allergies Home Medications ?Medication ?Instructions ?Recorded ?Confirmed ?Last Taken ?Type right CMC brace #1 ea 01/21/24 05/07/25 Unknown Rx albuterol sulfate 90 mcg/actuation 2 puff inhalation QID PRN 02/01/25 06/01/25 Unknown Rx aerosol inhaler (Ventolin HFA) shortness of breath or wheezing #8.5 grams blood sugar diagnostic (Blood #50 ea 02/01/25 05/07/25 Unknown Rx Glucose Test strips) blood-glucose meter (Blood Glucose #1 ea 02/01/25 05/07/25 Unknown Rx Monitoring kit) diclofenac sodium 1 % topical gel 4 g topical QID PRN joint pain 03/31/25 06/01/25 06/01/25 History (Voltaren Arthritis Pain) atorvastatin 20 mg tablet 20 mg PO BEDTIME #90 tabs 04/21/25 06/01/25 06/01/25 Rx dapagliflozin propanediol 10 mg 10 mg PO QAM #100 tabs 04/21/25 06/01/25 06/01/25 Rx tablet (Farxiga) dexlansoprazole 60 mg 60 mg PO QAM #100 caps 04/21/25 06/01/25 06/01/25 Rx capsule,biphase delayed release (Dexilant) fenofibrate nanocrystallized 145 145 mg PO BEDTIME #90 tabs 04/21/25 06/01/25 06/01/25 Rx mg tablet propranolol 40 mg tablet 40 mg PO BID #180 tabs 04/21/25 06/01/25 06/02/25 04:30 Rx varicella-zoster glycoE vacc-AS01B 50 mcg IM ONCE #1 ea 04/21/25 06/01/25 Unknown Rx adj(PF) 50 mcg/0.5 mL IM susp, kit (Shingrix (PF)) bupropion HCl 150 mg 24 hr tablet, 150 mg PO QAM #30 tabs 05/27/25 06/01/25 06/01/25 Rx extended release olanzapine 5 mg disintegrating 5 mg PO BID PRN agitation #30 tabs 05/27/25 06/01/25 06/01/25 Rx tablet trazodone 100 mg tablet See Rx Instructions PO .q hs PRN 05/27/25 06/01/25 06/01/25 Rx sleep #60 tabs buspirone 15 mg tablet 22.5 mg PO BID 06/01/25 06/01/25 06/01/25 History conj estrogen-medroxyprogesterone 1 tab PO QAM #84 tabs 06/01/25 06/01/25 06/01/25 Rx 0.3 mg-1.5 mg tablet (Prempro) magnesium citrate 100 mg capsule 300 mg PO DAILY 06/01/25 06/01/25 06/01/25 History magnesium oxide 500 mg PO DAILY 06/01/25 06/01/25 06/01/25 History Allergies Allergy/AdvReac Type Severity Reaction Status Date / Time gabapentin (From Neurontin) Allergy Severe Temors Verified 06/02/25 05:59 metoclopramide (From Reglan) Allergy Intermediate ADR/ALGY-Pa Verified 06/02/25 05:59 lpitations mirtazapine (From Remeron) Allergy Intermediate ADR/ALGY-Pa Verified 06/02/25 05:59 lpitations duloxetine (From Cymbalta) Allergy vomit Verified 06/02/25 05:59 diclofenac (From Voltaren) AdvReac Intermediate Stomach Verified 06/02/25 05:59 problems. lamotrigine AdvReac Unknown ALGY-Redness Verified 06/02/25 05:59 of Skin meloxicam (From Mobic) AdvReac ADR-Gastrointestinal Verified 06/02/25 05:59 Upset PFSH Acute PFSH: Medical History Umbilical hernia Right upper lobe pulmonary nodule 8mm on CT 9.16.25 KIMI (generalized anxiety disorder) Per [facility] Behavior Assessment Report from 01/07/2025: Client has been diagnosed with Generalized Anxiety Disorder, in that, she has been experiencing excessive anxiety and worry occurring more days than not, for at least 6 months, and about a number of events or activities related to daily tasks and performance. The Client? has been having difficulty controlling worry, worrying about too many things at the same time, with symptoms of being restless or keyed up, being easily fatigued, difficulty concentrating, irritability, muscle tension, and significant sleep disturbances. These symptoms have caused significant distress and interfering with social, occupational, and other important areas of functioning. Weight loss, non-intentional Nausea Psychiatric care Anxiety disorder with panic attacks On hormone replacement therapy on prempro Nicotine dependence, cigarettes, in remission Rectal incontinence checking MRI lumbar 1.6.25 but may be due to overflow Chronic low back pain with right-sided sciatica Abdominal pain, chronic, bilateral lower quadrant Psychosocial stressors Osteoarthritis of carpometacarpal (CMC) joint of right thumb Major depressive disorder, recurrent, in partial remission Cubital tunnel syndrome on right Arthritis of carpometacarpal (CMC) joint of left thumb Chronic constipation Obesity (BMI 30.0-34.9) Osteoarthritis involving joints of both upper arms Neck pain on right side Benign essential HTN Diabetic gastroparesis per her report has seen GI specialists at [facility]--was told she was too far gone to do anything; not a candidate for the stimulator; linzess causes cramping; using magnesium Insomnia Depression with anxiety PTSD (post-traumatic stress disorder) ADHD Hyperlipidemia GERD (gastroesophageal reflux disease) Elevated triglycerides with high cholesterol Type 2 diabetes mellitus, without long-term current use of insulin Surgical History History of repair of left rotator cuff History of bilateral tubal ligation History of esophagogastroduodenoscopy (EGD) Dr Mooney, repeat EGD 11/21/2023 Dr. Saucedo bx negative Hx of colonoscopy with polypectomy 2017 Dr Mansfield, repeat colonoscopy 11/21/2023 [place] with multiple benign polyps History of bilateral carpal tunnel release Left CTS 09/11/2022 and right CTS 11/21/[address] Marrero H/O arthroscopic knee surgery bilateral History of cholecystectomy Family History Grandfather Heart disease paternal, triple bypass and valve replaced Father Diabetes Heart disease Mother Depression Grandmother Stomach cancer Other Cancer Social History Smoking and tobacco/nicotine status: former use of tobacco/nicotine Quit status (tobacco/nicotine): has quit using Year quit tobacco: 2019 Former quit date comment: 30 pack year history Alcohol intake: never Substance/Drug Use: current Substance/Drug use frequency: daily Household members: none Marital status: Single Number of children: 3 Number of grandchildren: 2 Highest education level completed: Some College, No Degree Current occupational status: disabled Previous occupational history: disabled for mental illness and gastroparesis Leisure activites: reading and other Leisure activities details: video games Special jhony needs: No Agree to transfusion: Yes Vitals/I&O/Wt Last Vital Signs Temp 97.8 F 06/02/25 06:07 Pulse 83 06/02/25 06:07 Resp 18 06/02/25 06:07 BP 138/105 06/02/25 06:07 Pulse Ox 98 06/02/25 06:07 O2 Del Method Room Air 06/02/25 06:07 Weight last 48 hrs Weight 208 lb Physical Exam Narrative: General: alert, NAD HEENT: EOMI Pulmonary: Diminished breath sounds bilaterally Cardiovascular: rrr, nl s1s2, Abdomen: soft, nt, nd, no r/g, Extremities: no edema Neurologic: grossly intact Data 06/02/25 06:28 A&P PDMP PDMP Reviewed: Not Reviewed Attestations Medical Necessity Statement*: for navigational bronchoscopy Coding Level of Care Code Acute Code for Chg Fwd
[2025-06-02 06:47] LABS: INR 0.93 (0.8-1.2); Prothrombin Time 13.10 SECONDS (12.1-14.9)
[2025-06-02] MEDS: EPINEPHrine 1 MG in sodium chloride 0.9% (100 ml) 19 ML 2 MG XX (08:17)
--- NOTE | 2025-06-02 09:04 | PM.OP ---
Operative Report Date of procedure: June 02, 2025 Surgeon: Angella Valle MD
--- NOTE | 2025-06-02 09:06 | XR_ITS ---
WS: [id number] Portable AP upright chest, 06/02/2025 Clinical Data: POST ION IN PACU Comparison: Portable chest, 12/03/2024 Findings: No nodules, masses or effusions are seen. The heart is normal. The pulmonary vascularity is not increased. No pneumonia or pneumothorax is seen. There is minimal patchy opacity in the lateral aspect of the right lung which represents minimal hemorrhage from the recent bronchoscopic biopsy. XR/XR chest 1V portable [id number] Impression: Minimal patchy right lung opacity after bronchoscopic biopsy.
[2025-06-02 09:47] LABS: Cyto Order Verification Order Verified
--- NOTE | 2025-06-02 10:40 | ANE.PACU2 ---
Inpatient post-anesthesia follow up: Airway intact: Yes Vital signs: Temperature 97.1 F Pulse Rate 72 Respiratory Rate 18 Blood Pressure 103/62 Pulse Oximetry 95 Oxygen Delivery Me thod Room Air Oxygen Flow Rate 8 Fraction of Inspir ed Oxygen Hydration adequate: Yes Nausea and vomiting: No Pain level: 1 Mental status: Baseline
--- NOTE | 2025-06-02 11:09 | P.OP_ITS ---
Procedure: Flexible bronchoscopy with complete mediastinal staging Attending: Angella Valle MD Indication: Right upper lobe nodule Anesthesia: General anesthesia per anesthesia team Procedure: Pre-Anesthesia Assessment Time-Out: Immediately before the procedure, a time-out was conducted to confirm patient identification, procedure details, consent, image labeling, and the need for prophylactic antibiotics. This was verified by the physician, nurse, anesthesiologist, and quality audit representative. Outcome: The procedure was completed without difficulty, and the patient tolerated it well. Findings: A thorough airway exam was performed after passage of the bronchoscope. The trachea was anatomically normal. The right sided airway was anatomically normal without endobronchial lesions. Some secretions. The left sided airway was anatomically normal without endobronchial lesions. Some secretions. After confirming our location, we proceeded to sampling. Prior to sampling, confirmation of lesion location was done using: Fluroscopy with a tool overlying the lesion on at least one visual plane. The prior bronchoscope was removed from the airway. The [employer] Robotic Bronchoscopy platform was moved into place. The robotic bronchoscope was inserted into the endotracheal tube with care. The position of the bronchoscope was registered to a pre-existing CT scan using shape-sensing virtual bronchoscopy technology ([id number]). We navigated towards the lesion in the right upper nodule using a pre-planned route using virtual bronchoscopy Prior to sampling, confirmation of lesion location was done using: - Radial ultrasound probe with a concentric view (01926), - Fluroscopy with a tool overlying the lesion on at least one visual plane. - Virtual target located directly within the path of intended biopsy direction on EMN. Transbronchial biopsies of the lesion were performed using the core dx forceps. A total of 6 samples were obtained. ([id number]) Bronchoscopy with transbronchial needle aspiration biopsy, using floroscopy were performed. Total of 4 samples obtained. ([id number]) A bronchoalveolar lavage was performed of the lobe containing the target lesion with 65mL of saline instilled and 20 mL of effluent returned. Additional rinse from the bronchoscope lumen was added to the sample after removal of the scope. ([id number]) The prior bronchoscope was removed from the airway and the EBUS scope was inserted. A complete curvilinear EBUS procedure was performed of the following lymph nodes: Level 11R station was identified. No nodes met size criteria for biopsy. Level 10R station was identified. No nodes met size criteria for biopsy. Level 4R station was identified. No nodes met size criteria for biopsy. Level 7 station was identified. No nodes met size criteria for biopsy. Level 4L station was identified. No nodes met size criteria for biopsy. Level 10L station was identified. No nodes met size criteria for biopsy. Level 11L station was identified. No nodes met size criteria for biopsy. Following completion of all diagnostic and therapeutic procedures, hemostasis was verified. The scope was removed and procedure concluded. In summary, the following procedures were performed: bronchoscope was registered to a pre-existing CT scan using shape-sensing virtual bronchoscopy technology ([id number]). [id number] BAL, (Bronchoalveolar Lavage), [id number] TBBX, (Transbronchial biopsies, first lobe), [id number] Bronchoscopy with transbronchial needle aspiration biopsy (TBNA) (first lobe) Angella Valle MD Pulmonary and Critical Care
[2025-06-04 17:05] LABS: Aspergillus AG,EIA NOT DETECTED; Aspergillus AG,EIA, Index <0.50
[2025-06-04 21:35] LABS: Aspergillus Source Other; Aspergillus Supp Not Detected (Not Detected); Aspergillus Terreus DNA Not Detected (Not Detected)
== END 2025-06-02 10:40 | disposition home or self-care (01) ==
PROVIDERS: PCP Family Medicine; Visit Provider Internal Medicine
PROC: 0BJ08ZZ Inspection of Tracheobronchial Tree, Via Natural or Artificial Opening Endoscopic (ICD-10-PCS; CPT 31622; principal; 2025-06-02 07:00)
PROC: BB4BZZZ Ultrasonography of Pleura (ICD-10-PCS; 2025-06-02 07:00)
PROC: 0BJ08ZZ Inspection of Tracheobronchial Tree, Via Natural or Artificial Opening Endoscopic (ICD-10-PCS; CPT 31622; 2025-06-02 07:00)
DX: R91.1 Solitary pulmonary nodule (principal); I10 Essential (primary) hypertension; F41.8 Other specified anxiety disorders; K21.9 Gastro-esophageal reflux disease without esophagitis; E11.9 Type 2 diabetes mellitus without complications; F17.200 Nicotine dependence, unspecified, uncomplicated; E78.5 Hyperlipidemia, unspecified; F43.10 Post-traumatic stress disorder, unspecified; F33.41 Major depressive disorder, recurrent, in partial remission; E66.9 Obesity, unspecified; Z68.33 Body mass index [BMI] 33.0-33.9, adult; Z80.0 Family history of malignant neoplasm of digestive organs; J45.909 Unspecified asthma, uncomplicated
CPT/HCPCS: 31624; 31628; 31629; 36415; 36416; 71045; 76000; 82962; 85025; 85610; 86606; 87102; 87206; 87305; 87385; 87798; 88112; 88305; A9270; J0169; J0330; J1100; J2250; J2405; J2704; J3010; J3490; J7030; J9999